=== PATIENT | female | born 1990 | race Caucasian/White ===

== ENCOUNTER 2018-11-07 17:16 | Emergency (ER) | payer SELFPAY ==
--- NOTE | 2018-11-07 18:26 | EDM.PDOC ---
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 Her LMP was on 09/23, light, and only lasted 2 days. She normally has irregular, heavy periods 2/2 PCOS. 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 She also has h/o ectopic , which she feels had similar symptoms as to what she is having now. The spotting lasted about 2 days, and looked like clotting and was BRB at times- she is currently not having spotting. She also c/o fever, abdominal pain, gas, L adenexal pain, bilateral CVA tenderness, swelling feet, easy bruising. She denies vaginal pain or discharge, dysuria, pain with intercourse. No other concerns at this time. PCP: none, as she just moved here from [place] for work; would like a recommendation. 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 ED EXAM - Physical Exam Exam: See Below Exam Limited By: No Limitations General Appearance: Alert, WD/WN, No Apparent Distress Eye Exam: Bilateral Eye: EOMI, Normal Inspection, PERRL Ears: Normal External Exam, Hearing Grossly Normal Nose: Normal Inspection, Normal Mucosa, No Blood Throat/Mouth: Normal Inspection, Normal Lips, Normal Teeth, Normal Gums, Normal Oropharynx, Normal Voice, No Airway Compromise Neck: Normal Inspection, Supple, Non-Tender, Full Range of Motion Respiratory/Chest: No Respiratory Distress, Lungs Clear, Normal Breath Sounds, No Accessory Muscle Use, Chest Non-Tender Cardiovascular: Normal Peripheral Pulses, Regular Rate, Rhythm, No Edema, No Gallop, No JVD, No Murmur, No Rub GI/Abdominal Exam: Normal Bowel Sounds, Soft, No Organomegaly, No Distention, No Abnormal Bruit, No Mass, Pelvis Stable, Tender (left adenexal region) Rectal Exam: Deferred Back Exam: CVA Tenderness (L) (R>L), CVA Tenderness (R) (R>L) Psychiatric: Normal Affect, Normal Mood Skin Exam: Warm, Dry, Intact, Normal Color, No Rash Course - Vital Signs Last Recorded V/S: Last Vital Signs Temp 98.2 F 11/07/18 17:26 Pulse 98 11/07/18 17:26 Resp 16 11/07/18 17:26 BP 161/87 H 11/07/18 17:26 Pulse Ox 96 11/07/18 17:26 - Orders/Labs/Meds Labs: Laboratory Tests 11/07/18 11/07/18 11/07/18 Range/Units 17:45 18:45 18:45 WBC 8.95 (3.98-10.04) K/mm3 RBC 4.56 (3.98-5.22) M/mm3 Hgb 13.9 (11.2-15.7) gm/L Hct 41.0 (34.1-44.9) % MCV 89.9 (79.4-94.8) fl MCH 30.5 (25.6-32.2) pg MCHC 33.9 (32.2-35.5) g/dl RDW Std Deviation 42.9 (36.4-46.3) fL Plt Count 292 (182-369) K/mm3 MPV 10.1 (9.4-12.3) fl Neut % (Auto) 64.3 (34.0-71.1) % Lymph % (Auto) 26.4 (19.3-51.7) % [place] % (Auto) 5.6 (4.7-12.5) % Eos % (Auto) 3.2 (0.7-5.8) Baso % (Auto) 0.2 (0.1-1.2) % Neut # (Auto) 5.75 (1.56-6.13) K/mm3 Lymph # (Auto) 2.36 (1.18-3.74) K/mm3 [place] # (Auto) 0.50 H (0.24-0.36) K/mm3 Eos # (Auto) 0.29 (0.04-0.36) K/mm3 Baso # (Auto) 0.02 (0.01-0.08) K/mm3 C-Reactive Protein 0.2 (<1.0) mg/dL HCG, Quant 2510.0 mIU/mL Urine Color Yellow (Yellow) Urine Appearance Clear (Clear) Urine pH 6.0 (5.0-8.0) Ur Specific [place] 1.025 (1.005-1.030) Urine Protein Negative (Negative) Urine Glucose (UA) Negative (Negative) Urine Ketones Negative (Negative) Urine Occult Blood Trace-lysed H (Negative) Urine Nitrite Negative (Negative) Urine Bilirubin Negative (Negative) Urine Urobilinogen 0.2 (0.2-1.0) Ur Leukocyte Esterase Negative (Negative) Urine RBC 0-5 (0-5) /hpf Urine WBC 0-5 (0-5) /hpf Ur Squamous Epith Cells 0-5 (0-5) /hpf Urine Bacteria Few H (FEW) /hpf Urine Mucus Few (FEW) /hpf - Re-Assessments/Exams Free Text/Narrative Re-Assessment/Exam: 11/07/18 18:19 I have ordered CBC, CRP, UA, HCG quantitative, Transvaginal U/S 11/07/18 19:19 CBC WNL CRP 0.2 UA unimpressive for UTI; shows occult blood and few bacteria 11/07/18 19:46 Transvaginal U/S read by Dr. Mccracken: 1. Small cystic area within the endometrial cavity most likely representing early gestational sac. Recommend repeat exam in 11-14 days to confirm normal developing . 2. Other findings as noted above believed to be incidental. 04/23/19 19:54 Discussed with pt and that there is no sign of infection on workup, according to U/S is about 5 weeks 3 days. Recommend repeat exam in 11- 14 days. Pain is likely from gas, will recommend over the counter Gas-X and f/u w/ PCP. They agree with this plan. Departure - Departure Time of Disposition: 20:03 Disposition: Home, Self-Care 01 Condition: Good Clinical Impression: with 5 completed weeks gestation, Back pain, Abdominal gas pain, Spotting affecting in first trimester - Discharge Information *PRESCRIPTION DRUG MONITORING PROGRAM REVIEWED*: Not Applicable *COPY OF PRESCRIPTION DRUG MONITORING REPORT IN PATIENT JIMI: Not Applicable Instructions: Flank Pain, Adult, [id number], Vaginal Bleeding During , First Trimester, [id number] Referrals: Huma Ngo PA [Physician Registered Private Duty Nurse] - Forms: ED Department Discharge Additional Instructions: You were seen in the ED today for back pain radiating down left leg and spotting with . You workup was negative for UTI or any other infection. Your U/S showed you are about 5 weeks 3 days . Recommend repeat exam in 11-14 days to confirm normal developing . Pelvic exam was not done as you are not currently bleeding or having any other concerning symptoms. Your back pain is likely from gas, recommend over the counter Gas-X and follow up with primary care provider, recommend Huma Ngo PA-C here at [facility]. She can then set you up with an OB in the area. Please return to ED if new or worsening symptoms.
--- NOTE | 2018-11-07 19:41 | US ---
First trimester obstetrical ultrasound: Multiple real-time images were obtained transvaginally. Technologist's note: Technically challenging due to body habitus and gas Incidental nabothian cyst is noted. Uterus is anteverted. Small cystic area is noted within the endometrial cavity. Minimal free fluid is seen which is believed to be incidental. Right and left ovaries are identified and appear unremarkable. No discrete adnexal findings are seen at this time. Measurements: Gestational sac: 0.79 cm - 5 weeks 3 days Impression: 1. Small cystic area within the endometrial cavity most likely representing early gestational sac. Recommend repeat exam in 11-14 days to confirm normal developing . 2. Other findings as noted above believed to be incidental. Diagnostic code #2
== END 2018-11-07 20:43 | disposition home or self-care (01) ==
LOC: JD.ED 17:16
DX: O26.851 Spotting complicating pregnancy, first trimester (principal); O99.89 Other specified diseases and conditions complicating pregnancy, childbirth and the puerperium; M54.9 Dorsalgia, unspecified; R14.1 Gas pain; Z3A.01 Less than 8 weeks gestation of pregnancy; Z79.899 Other long term (current) drug therapy; Z91.040 Latex allergy status; Z88.6 Allergy status to analgesic agent
CPT/HCPCS: 36415; 76817; 76817-26; 81001; 84702; 85025; 86140; 99282; 99284-25

== ENCOUNTER 2018-12-22 20:53 | Emergency (ER) | payer MEDICAID ==
[2018-12-22] MEDS ORDERED: diphenhydrAMINE 50 MG/ML SDV IVPUSH ONE (21:37)
[2018-12-22] MEDS ORDERED: Acetaminophen 325 MG Tab PO ONE (21:37)
[2018-12-22] MEDS ORDERED: Sodium Chloride 0.9% 10 ML Syringe FLUSH PRN (21:37)
[2018-12-22] MEDS ORDERED: Metoclopramide 10 MG/2 ML SDV IVPUSH ONE (21:37)
[2018-12-22] MEDS ORDERED: Sodium Chloride 0.9% 1,000 ML IV SCH (21:45)
--- NOTE | 2018-12-22 21:49 | EDM.PDOC ---
ED HPI GENERAL MEDICAL PROBLEM - General Chief Complaint: Headache Stated Complaint: 13 WKS PG MIGRAINE HEADACHE Time Seen by Provider: 12/22/18 21:36 Source of Information: Reports: Patient History Limitations: Reports: No Limitations, Uncooperative - History of Present Illness INITIAL COMMENTS - FREE TEXT/NARRATIVE: Patient is a 28-year-old female who presents to the ED for the evaluation of a headache. The patient notes that she is 13 weeks . She states that this headache started 2 days ago, and has not really gone away. She has been taking Tylenol at home but has been not providing much relief. She did try some caffeine today and this also did not provide much relief. The patient states she is a with 4 miscarriages and 1 ectopic . The patient notes she has been vomiting roughly 6 times today, she's not been able to keep much down for foods or fluids at all. She states that she is having some generalized myalgias and cramping, but she believes that this is due to the vomiting. She does not have any vaginal discharge or bleeding at this time. The patient notes that she has a history of headaches, and she states that migraines run in her family. 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 - Past Surgical History GI Surgical History: Reports: Cholecystectomy Social & Family History - Tobacco Use Smoking Status *Q: Never Smoker - Caffeine Use Caffeine Use: Reports: Coffee, Soda - Recreational Drug Use Recreational Drug Use: No ED ROS GENERAL - Review of Systems Review Of Systems: See Below Constitutional: Reports: No Symptoms HEENT: Reports: No Symptoms Respiratory: Reports: No Symptoms Cardiovascular: Reports: No Symptoms Endocrine: Reports: No Symptoms GI/Abdominal: Reports: Nausea, Vomiting : Reports: No Symptoms Musculoskeletal: Reports: No Symptoms Skin: Reports: No Symptoms Neurological: Reports: Headache Psychiatric: Reports: No Symptoms Hematologic/Lymphatic: Reports: No Symptoms Immunologic: Reports: No Symptoms - Physical Exam Exam: See Below Exam Limited By: No Limitations General Appearance: Alert, WD/WN, No Apparent Distress (Patient is lying flat on the ED cot in a darkened room.) Eye Exam: Bilateral Eye: EOMI, Normal Inspection, PERRL Ears: Normal External Exam Nose: Normal Inspection Throat/Mouth: Normal Inspection, Normal Lips, Normal Teeth, Normal Gums, Normal Oropharynx, Normal Voice, No Airway Compromise Head Exam: Atraumatic, Normocephalic Neck: Normal Inspection, Supple, Non-Tender, Full Range of Motion Respiratory/Chest: No Respiratory Distress, Lungs Clear, Normal Breath Sounds, No Accessory Muscle Use, Chest Non-Tender Cardiovascular: Normal Peripheral Pulses, Regular Rate, Rhythm, No Murmur GI/Abdominal: Normal Bowel Sounds, Soft, Non-Tender, No Distention, No Mass Neuro Exam (Abbreviated): Alert, Oriented, Normal Cognition, Normal Gait, No Motor/Sensory Deficits Extremities: Normal Inspection, Normal Capillary Refill Psychiatric: Normal Affect, Normal Mood Skin Exam: Warm, Dry, Intact, Normal Color, No Rash Course - Vital Signs Last Recorded V/S: Last Vital Signs Temp 98.4 F 12/22/18 21:26 Pulse 79 12/22/18 21:26 Resp 20 12/22/18 21:26 BP 123/75 12/22/18 21:26 Pulse Ox 99 12/22/18 21:26 - Orders/Labs/Meds Orders: Active Orders 24 hr Category Date Time Status Peripheral IV Care [RC] . DIRECTED Care 12/22/18 21:37 Ordered Sodium Chloride 0.9% [Normal Saline] 1,000 ml Med 12/22/18 21:45 Ordered IV ASDIRECTED Sodium Chloride 0.9% [Saline Flush] Med 12/22/18 21:37 Ordered 10 ml FLUSH ASDIRECTED PRN Peripheral IV Insertion Adult [OM.PC] Routine Oth 12/22/18 21:37 Ordered Medication Orders Sodium Chloride (Normal Saline) 1,000 mls @ 999 mls/hr IV ASDIRECTED STEFANO Last Admin: 12/22/18 22:02 Dose: 999 mls/hr Sodium Chloride (Saline Flush) 10 ml FLUSH ASDIRECTED PRN PRN Reason: Keep Vein Open Last Admin: 12/22/18 22:03 Dose: 10 ml Meds: Medications Generic Name Dose Route Start Last Admin Trade Name Amilcar PRN Reason Stop Dose Admin Sodium Chloride 1,000 mls @ 999 mls/hr 12/22/18 21:45 12/22/18 22:02 Normal Saline IV 999 mls/hr ASDIRECTED STEFANO Administration Sodium Chloride 10 ml 12/22/18 21:37 12/22/18 22:03 Saline Flush FLUSH 10 ml ASDIRECTED PRN Administration Keep Vein Open Discontinued Medications Generic Name Dose Route Start Last Admin Trade Name Amilcar PRN Reason Stop Dose Admin Acetaminophen 650 mg 12/22/18 21:37 12/22/18 22:02 Tylenol PO 12/22/18 21:38 650 mg NOW ONE Administration Diphenhydramine HCl 25 mg 12/22/18 21:37 12/22/18 22:04 Benadryl IVPUSH 12/22/18 21:38 25 mg ONETIME ONE Administration Metoclopramide HCl 10 mg 12/22/18 21:37 12/22/18 22:02 Reglan IVPUSH 12/22/18 21:38 10 mg ONETIME ONE Administration - Re-Assessments/Exams Free Text/Narrative Re-Assessment/Exam: 12/22/18 21:49 Patient presents to the ED for the evaluation of a headache. I have ordered 650 mg PO Tylenol, IV fluids, 10 mg IV Reglan, and 25 mg IV Benadryl for initial management. 12/22/18 22:45 Patient was reassessed at bedside, and states that her headache has decreased by 50%. She states that she does not feel any of the cramping any longer, I will let her IV fluids run in, and then we will discharge the patient home with some tablets of oral Zofran with further conservative recommendations. Departure - Departure Time of Disposition: 22:46 Disposition: Home, Self-Care 01 Condition: Fair Clinical Impression: Headache Qualifiers: Headache type: unspecified Headache chronicity pattern: acute headache Intractability: not intractable Qualified Code(s): R51 - Headache - Discharge Information *PRESCRIPTION DRUG MONITORING PROGRAM REVIEWED*: No *COPY OF PRESCRIPTION DRUG MONITORING REPORT IN PATIENT JIMI: No Instructions: General Headache Without Cause, [id number] Referrals: Param Anaya MD [Primary Care Provider] - Forms: ED Department Discharge Additional Instructions: You have been evaluated in the ED today for your headache. You have been given IV fluids, Tylenol, Benadryl, and an antinausea medication called Reglan, this did provide a pretty good headache relief. You have been provided with a prescription for some oral tablets of Zofran, please take one tab every 8 hours dissolvable under your tongue for nausea. Please increase your oral fluid intake as much as possible, and stick to a clear liquid or bland diet over the next 24-48 hours and advanced to normal foods as tolerated. Please return to the ED if her symptoms should change or worsen. - My Orders Last 24 Hours: My Active Orders 12/22/18 21:37 Peripheral IV Care [RC] . DIRECTED Sodium Chloride 0.9% [Saline Flush] 10 ml FLUSH ASDIRECTED PRN Peripheral IV Insertion Adult [OM.PC] Routine 12/22/18 21:45 Sodium Chloride 0.9% [Normal Saline] 1,000 ml IV ASDIRECTED - Assessment/Plan Last 24 Hours: My Active Orders 12/22/18 21:37 Peripheral IV Care [RC] . DIRECTED Sodium Chloride 0.9% [Saline Flush] 10 ml FLUSH ASDIRECTED PRN Peripheral IV Insertion Adult [OM.PC] Routine 12/22/18 21:45 Sodium Chloride 0.9% [Normal Saline] 1,000 ml IV ASDIRECTED
== END 2018-12-22 22:55 | disposition home or self-care (01) ==
LOC: JD.ED 20:53
DX: O99.89 Other specified diseases and conditions complicating pregnancy, childbirth and the puerperium (principal); R51 Headache; Z3A.13 13 weeks gestation of pregnancy; Z91.040 Latex allergy status; Z88.6 Allergy status to analgesic agent; Z79.899 Other long term (current) drug therapy
CPT/HCPCS: 96361; 96374; 96375; 99283; A9270; J1200; J2765; J7040; 99284

== ENCOUNTER 2019-01-06 17:51 | Emergency (ER) | payer MEDICAID ==
--- NOTE | 2019-01-06 19:22 | EDM.PDOC ---
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 The patient states she is 15 weeks . The patient states that she developed severe right lower quadrant pain this morning but denies any nausea or vomiting or any fevers and chills. She states that she did have a good bowel movement today after taking milk of magnesia and reports of quite large bowel movement. She states that the pain is sharp and stabbing in nature, and kind of comes and goes in waves. She notes that she still has her appendix, and a right-sided ovary and fallopian tube. She states that at 15 weeks she has not felt the baby move a whole awful lot. The patient further denies any vaginal bleeding or dysuria or urinary frequency or urgency. The patient notes she has taken 1500 mg of Tylenol and this has not provided her any pain relief. 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 Neurological History: Reports: Migraines Psychiatric History: Reports: Anxiety, Depression - Past Surgical History GI Surgical History: Reports: Cholecystectomy Female Surgical History: Reports: D&C Social & Family History - Family History Family Medical History: Noncontributory - Tobacco Use Smoking Status *Q: Never Smoker - Caffeine Use Caffeine Use: Reports: Coffee, Soda ED ROS GENERAL - Review of Systems Review Of Systems: See Below Constitutional: Denies: Fever, Chills HEENT: Reports: No Symptoms Respiratory: Reports: No Symptoms Cardiovascular: Reports: No Symptoms Endocrine: Reports: No Symptoms GI/Abdominal: Reports: Abdominal Pain (R lower pelvic pain). Denies: Constipation, Diarrhea, Nausea, Vomiting : Reports: No Symptoms Musculoskeletal: Reports: No Symptoms Skin: Reports: No Symptoms Neurological: Reports: No Symptoms Psychiatric: Reports: No Symptoms Hematologic/Lymphatic: Reports: No Symptoms Immunologic: Reports: No Symptoms ED EXAM - Physical Exam Exam: See Below Exam Limited By: No Limitations General Appearance: Alert, WD/WN, No Apparent Distress Respiratory/Chest: No Respiratory Distress, Lungs Clear, Normal Breath Sounds, No Accessory Muscle Use, Chest Non-Tender Cardiovascular: Normal Peripheral Pulses, Regular Rate, Rhythm, No Murmur GI/Abdominal Exam: Normal Bowel Sounds, Soft, No Distention, No Mass, Tender ( RLQ) Movement: Not Appreciated Extremities: Normal Inspection, Normal Capillary Refill Neurological: Alert, Oriented, Normal Cognition, No Motor/Sensory Deficits Psychiatric: Normal Affect, Normal Mood Skin Exam: Warm, Dry, Intact, Normal Color, No Rash Course - Vital Signs Last Recorded V/S: Last Vital Signs Temp 99.2 F 01/06/19 18:01 Pulse 88 01/06/19 18:01 Resp 16 01/06/19 18:01 BP 129/76 01/06/19 18:01 Pulse Ox 100 01/06/19 18:01 - Orders/Labs/Meds Orders: Active Orders 24 hr Category Date Time Status Abdomen Ltd [US] Stat Exams 01/06/19 18:54 Taken Labs: Laboratory Tests 01/06/19 01/06/19 01/06/19 Range/Units 18:05 18:05 20:10 WBC 9.59 (3.98-10.04) K/mm3 RBC 4.51 (3.98-5.22) M/mm3 Hgb 13.7 (11.2-15.7) gm/L Hct 39.5 (34.1-44.9) % MCV 87.6 (79.4-94.8) fl MCH 30.4 (25.6-32.2) pg MCHC 34.7 (32.2-35.5) g/dl RDW Std Deviation 39.5 (36.4-46.3) fL Plt Count 258 (182-369) K/mm3 MPV 11.3 (9.4-12.3) fl Neutrophils % (Manual) 62 H (40-60) % Band Neutrophils % 0 (0-10) % Lymphocytes % (Manual) 28 (20-40) % Atypical Lymphs % 0 % Monocytes % (Manual) 8 (2-10) % Eosinophils % (Manual) 2 (0.7-5.8) % Basophils % (Manual) 0 L (0.1-1.2) Platelet Estimate Adequate RBC Morph Comment Normal Sodium 138 (136-145) mEq/L Potassium 3.9 (3.5-5.1) mEq/L Chloride 105 (98-107) mEq/L Carbon Dioxide 21 (21-32) mEq/L Anion Gap 15.9 H (5-15) BUN 6 L (7-18) mg/dL Creatinine 0.6 (0.55-1.02) mg/dL Est Cr Clr Drug Dosing 133.32 mL/min Estimated GFR (MDRD) > 60 (>60) mL/min BUN/Creatinine Ratio 10.0 L (14-18) Glucose 115 H (74-106) mg/dL Calcium 8.5 (8.5-10.1) mg/dL Total Bilirubin 0.3 (0.2-1.0) mg/dL AST 9 L (15-37) U/L ALT 16 (14-59) U/L Alkaline Phosphatase 56 (46-116) U/L Total Protein 6.9 (6.4-8.2) g/dl Albumin 3.0 L (3.4-5.0) g/dl Globulin 3.9 gm/dL Albumin/Globulin Ratio 0.8 L (1-2) Urine Color Yellow (Yellow) Urine Appearance Slt cloudy H (Clear) Urine pH 8.5 H (5.0-8.0) Ur Specific [place] 1.020 (1.005-1.030) Urine Protein Trace H (Negative) Urine Glucose (UA) Negative (Negative) Urine Ketones Negative (Negative) Urine Occult Blood Negative (Negative) Urine Nitrite Negative (Negative) Urine Bilirubin Negative (Negative) Urine Urobilinogen 0.2 (0.2-1.0) Ur Leukocyte Esterase Negative (Negative) Urine RBC 0-5 (0-5) /hpf Urine WBC Not seen (0-5) /hpf Ur Epithelial Cells 0-5 (0-5) /hpf Amorphous Sediment Many H (NOT SEEN) /hpf Urine Bacteria Few (FEW) /hpf Urine Mucus Moderate H (FEW) /hpf Meds: Medications Discontinued Medications Generic Name Dose Route Start Last Admin Trade Name Amilcar PRN Reason Stop Dose Admin Hydromorphone HCl 0.25 mg 01/06/19 19:28 01/06/19 19:46 Dilaudid IVPUSH 01/06/19 19:29 0.25 mg ONETIME ONE Administration Ondansetron HCl 4 mg 01/06/19 19:30 01/06/19 19:46 Zofran IVPUSH 01/06/19 19:31 4 mg ONETIME ONE Administration - Re-Assessments/Exams Free Text/Narrative Re-Assessment/Exam: 01/06/19 19:27 Patient presents to the ED for the evaluation of right lower pelvic pain. I have ordered a CBC, CMP, abdominal ultrasound, and a UA for further evaluation. 01/06/19 23:09 Patient's labs do not demonstrate any sort of bacterial infection at this this. US is done and results are pending. It is likely that her pain is due to either constipation or gas. 01/06/19 23:39 V-rad states that there are no acute findings, but the appendix was not visualized. There were no inflammatory changes or obvious free fluid. I did discuss the results with Dr. Sims, and he agrees that her pain is likely due to constipation. Departure - Departure Time of Disposition: 23:41 Disposition: Home, Self-Care 01 Condition: Fair Clinical Impression: RLQ abdominal pain Constipation Qualifiers: Constipation type: unspecified constipation type Qualified Code(s): K59.00 - Constipation, unspecified - Discharge Information *PRESCRIPTION DRUG MONITORING PROGRAM REVIEWED*: No *COPY OF PRESCRIPTION DRUG MONITORING REPORT IN PATIENT JIMI: No Instructions: Abdominal Pain During , [id number] Referrals: Param Anaya MD [Primary Care Provider] - Forms: ED Department Discharge Additional Instructions: You have been evaluated in the ED today for your abdominal pain with . You were evaluated for appendicitis as your pain was in your right lower quadrant. Your white blood cell count was within normal limits, and your ultrasound did not show any sign of inflammatory changes that would suggest appendicitis. It is likely that your pain is due to either constipation or gas at this time. Please increase your oral fluid intake to help guard against further constipation, you may also take a stool softener like MiraLAX daily if not already doing so. You may take Tylenol every 6 hours as needed for further pain relief. Please return to the ED if your symptoms should change or worsen. - My Orders Last 24 Hours: My Active Orders 01/06/19 18:54 Abdomen Ltd [US] Stat - Assessment/Plan Last 24 Hours: My Active Orders 01/06/19 18:54 Abdomen Ltd [US] Stat
[2019-01-06] MEDS ORDERED: HYDROmorphone 0.5 MG/0.5 ML Syringe IVPUSH ONE (19:28)
[2019-01-06] MEDS ORDERED: Ondansetron 4 MG/2 ML SDV IVPUSH ONE (19:30)
--- NOTE | 2019-01-08 09:36 | US ---
Limited abdominal ultrasound: Multiple real-time images of the right lower abdomen were obtained. Appendix not visualized. Right ovary appears normal. No free fluid is seen. Impression: 1. No ultrasound abnormality is seen within the right lower quadrant. Diagnostic code #1 I agree with preliminary report from jenny, finalized on 01/07/19, 12:30 AM Central Time
== END 2019-01-06 23:49 | disposition home or self-care (01) ==
LOC: JD.ED 17:51
DX: O99.612 Diseases of the digestive system complicating pregnancy, second trimester (principal); K59.00 Constipation, unspecified; Z90.49 Acquired absence of other specified parts of digestive tract; Z88.5 Allergy status to narcotic agent; Z91.040 Latex allergy status; Z3A.15 15 weeks gestation of pregnancy
CPT/HCPCS: 36415; 76705; 80053; 81001; 85007; 85027; 96374; 96375; 99284; J1170; J2405

== ENCOUNTER 2019-08-09 09:29 | Emergency (ER) | payer MEDICAID ==
--- NOTE | 2019-08-09 10:16 | EDM.PDOC ---
<Violeta Kasper - Last Filed: 08/09/19 10:50> ED HPI GENERAL MEDICAL PROBLEM - General Chief Complaint: Headache Stated Complaint: HEADACHE/BLURRED VISION/JOINT PAIN Time Seen by Provider: 08/09/19 10:02 Source of Information: Reports: Patient History Limitations: Reports: No Limitations - History of Present Illness INITIAL COMMENTS - FREE TEXT/NARRATIVE: 28-year-old female presents with a headache, blurry vision, and diffuse joint pain/burning. She states that the headache started this morning but the joint pain has been occurring off and on for approximately one month. She is having the joint pain worked up by Dr. Rangel, who she states has tested her for lupus and connective tissue disease with results coming back negative. Her wrists and shoulders bother her the worst. The headache she describes as throbbing starting in the frontal region and radiating superior and posterior. She has tried tylenol and ibuprofen for the headache with no relief. She has had a migraine in the past and she recently had a TIA after the of her child in May. 4 days ago, an MRI was done which she states showed little to no evidence of her pituitary gland. She does have a follow up visit to address those results. The patient describes the blurry vision as being "spotted" but denies loss of vision. She also notes that light seems to worsen her headache and vision. The patient denies chest pain, shortness of breath, loss of sensation, and hearing loss. She is able to walk but notes her joint pain makes it very difficult. Onset: Today Duration: Constant Location: Reports: Head, Other (joints) Quality: Reports: Throbbing (frontal region radiating superior and posteriorly) , Other (all joints "feel like they are on fire") Severity: Severe Improves with: Reports: None Worsens with: Reports: Other (light, eye movement) Associated Symptoms: Reports: Headaches, Other (joint pain ) Treatments MANAGER PERIOPERATIVE: Reports: Acetaminophen, Other (see below) Other Treatments MANAGER PERIOPERATIVE: ibuprofen Frontal Headache Pain Score (Numeric/FACES): 10 - Related Data Allergies Allergy/AdvReac Type Severity Reaction Status Date / Time Latex, Natural Rubber Allergy Hives Verified 08/09/19 09:48 tramadol AdvReac Nausea Verified 08/09/19 09:48 Home Meds: Home Meds Pnv No.95/Ferrous Fum/Folic AC [ Caplet] 1 tab PO DAILY 11/07/18 [ History] Sertraline HCl [Zoloft] 75 mg PO DAILY 05/24/19 [History] Jublia. 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 Denies: Ear Pain, Eye Pain, Hearing Loss Respiratory: Reports: No Symptoms Cardiovascular: Reports: No Symptoms Endocrine: Reports: No Symptoms GI/Abdominal: Reports: Nausea. Denies: Abdominal Pain, Constipation, Diarrhea : Reports: No Symptoms Musculoskeletal: Reports: Joint Pain (diffuse, burning, worse in wrists and shoulders) Skin: Reports: No Symptoms Neurological: Reports: Headache (frontal, radiates superior and posterior), Difficulty Walking (due to joint pain ), Other (photophobia ). Denies: Dizziness, Numbness, Tingling Psychiatric: Reports: No Symptoms Hematologic/Lymphatic: Reports: No Symptoms - Physical Exam Exam: See Below Exam Limited By: No Limitations General Appearance: Alert, WD/WN, Moderate Distress Eye Exam: Bilateral Eye: EOMI, Other (unable to accurately perform pupillary reflex due to light sensitivity, peripheral vision intact, able to decipher number of fingers held up) Head Exam: Atraumatic, Normocephalic Respiratory/Chest: No Respiratory Distress, Lungs Clear, Normal Breath Sounds, No Accessory Muscle Use Cardiovascular: Normal Peripheral Pulses, Regular Rate, Rhythm, No Murmur Neuro Exam (Abbreviated): Alert, Oriented, CN II-XII Intact, Normal Cognition, No Motor/Sensory Deficits Extremities: Normal Inspection, Normal Range of Motion, Other (diffuse joint tenderness, full ROM of fingers but they do lock and release as she extends them ) Psychiatric: Normal Affect, Normal Mood Skin Exam: Warm, Dry, Intact, Normal Color, No Rash Course - Vital Signs Last Recorded V/S: Last Vital Signs Temp 98.9 F 08/09/19 09:46 Pulse 66 08/09/19 09:46 Resp 16 08/09/19 09:46 BP 129/73 08/09/19 09:46 Pulse Ox 98 08/09/19 09:46 - Orders/Labs/Meds Orders: Active Orders 24 hr Category Date Time Status Peripheral IV Care [RC] . DIRECTED Care 08/09/19 10:27 Active Ketorolac [Toradol] Med 08/09/19 10:30 Active 30 mg IVPUSH ONETIME Sodium Chloride 0.9% [Normal Saline] 1,000 ml Med 08/09/19 10:30 Active IV ONETIME Sodium Chloride 0.9% [Saline Flush] Med 08/09/19 10:24 Active 10 ml FLUSH ASDIRECTED PRN Peripheral IV Insertion Adult [OM.PC] Stat Oth 08/09/19 10:24 Ordered Medication Orders Sodium Chloride (Normal Saline) 1,000 mls @ 999 mls/hr IV ONETIME STEFANO Last Admin: 08/09/19 10:55 Dose: 999 mls/hr Ketorolac Tromethamine (Toradol) 30 mg IVPUSH ONETIME STEFANO Last Admin: 08/09/19 10:58 Dose: 30 mg Sodium Chloride (Saline Flush) 10 ml FLUSH ASDIRECTED PRN PRN Reason: Keep Vein Open Last Admin: 08/09/19 10:59 Dose: 10 ml Meds: Medications Generic Name Dose Route Start Last Admin Trade Name Freq PRN Reason Stop Dose Admin Sodium Chloride 1,000 mls @ 999 mls/hr 08/09/19 10:30 08/09/19 10:55 Normal Saline IV 999 mls/hr ONETIME STEFANO Administration Ketorolac Tromethamine 30 mg 08/09/19 10:30 08/09/19 10:58 Toradol IVPUSH 30 mg ONETIME STEFANO Administration Sodium Chloride 10 ml 08/09/19 10:24 08/09/19 10:59 Saline Flush FLUSH 10 ml ASDIRECTED PRN Administration Keep Vein Open Discontinued Medications Generic Name Dose Route Start Last Admin Trade Name Amilcar PRN Reason Stop Dose Admin Diphenhydramine HCl 25 mg 08/09/19 10:24 08/09/19 10:59 Benadryl IVPUSH 08/09/19 10:25 25 mg ONETIME ONE Administration Metoclopramide HCl 10 mg 08/09/19 10:24 08/09/19 10:59 Reglan IVPUSH 08/09/19 10:25 10 mg ONETIME ONE Administration Departure - Departure Disposition: Home, Self-Care 01 Clinical Impression: Migraine - Discharge Information Instructions: Migraine Headache Referrals: Rick Malcolm MD [Primary Care Provider] - Forms: ED Department Discharge Additional Instructions: Rest, continue current medications, tylenol every 6-8 hours if needed for further headache, see Dr. Rangel early next week, see Osd Clerk as planned. Return to ED as needed if symptoms worsening in any way. Sepsis Event Note - Evaluation Sepsis Screening Result: No Definite Risk - Focused Exam Vital Signs: Vital Signs Temp Pulse Resp BP Pulse Ox 08/09/19 09:46 98.9 F 66 16 129/73 98 Date Exam was Performed: 08/09/19 Time Exam was Performed: 10:51 - My Orders Last 24 Hours: My Active Orders 08/09/19 10:24 Sodium Chloride 0.9% [Saline Flush] 10 ml FLUSH ASDIRECTED PRN Peripheral IV Insertion Adult [OM.PC] Stat 08/09/19 10:27 Peripheral IV Care [RC] . DIRECTED 08/09/19 10:30 Ketorolac [Toradol] 30 mg IVPUSH ONETIME Sodium Chloride 0.9% [Normal Saline] 1,000 ml IV ONETIME - Assessment/Plan Last 24 Hours: My Active Orders 08/09/19 10:24 Sodium Chloride 0.9% [Saline Flush] 10 ml FLUSH ASDIRECTED PRN Peripheral IV Insertion Adult [OM.PC] Stat 08/09/19 10:27 Peripheral IV Care [RC] . DIRECTED 08/09/19 10:30 Ketorolac [Toradol] 30 mg IVPUSH ONETIME Sodium Chloride 0.9% [Normal Saline] 1,000 ml IV ONETIME <Toby Agarwal L - Last Filed: 08/09/19 13:43> Course - Re-Assessments/Exams Free Text/Narrative Re-Assessment/Exam: 08/09/19 11:45. When in the check on patient a few minutes ago, she is sleeping. We'll let her sleep for now and then plan to discharge home if still doing okay. 08/09/19 13:00. Pt still has very mild Marroquin but feeling better after IV fluid and meds. feels up to going home. As noted she did have MRI just 4 days ago so am not repeating imaging of head today with nl neuro exam. I have reviewed the MRI report, empty sella noted, no other abnormality visualized. See that Radiology report for details. Discharge instr. as documented. 08/09/19 13:42. Initial hx and exam of patient was done by JOSE Key student. I agree with her hx and exam as documented. I have also examined and interviewed patient as well as follow up exams. Departure - Departure Time of Disposition: 13:01 Condition: Fair Sepsis Event Note - Focused Exam Date Exam was Performed: 08/09/19 Time Exam was Performed: 13:40
[2019-08-09] MEDS ORDERED: Sodium Chloride 0.9% 10 ML Syringe FLUSH PRN (10:24)
[2019-08-09] MEDS ORDERED: diphenhydrAMINE 50 MG/ML SDV IVPUSH ONE (10:24)
[2019-08-09] MEDS ORDERED: Metoclopramide 10 MG/2 ML SDV IVPUSH ONE (10:24)
[2019-08-09] MEDS ORDERED: Ketorolac 30 MG/ML SDV IVPUSH SCH (10:30)
[2019-08-09] MEDS ORDERED: Sodium Chloride 0.9% 1,000 ML IV SCH (10:30)
== END 2019-08-09 15:20 | disposition home or self-care (01) ==
LOC: JD.ED 09:29
DX: G43.909 Migraine, unspecified, not intractable, without status migrainosus (principal); F41.9 Anxiety disorder, unspecified; F32.9 Major depressive disorder, single episode, unspecified; Z88.5 Allergy status to narcotic agent; Z91.040 Latex allergy status; Z79.84 Long term (current) use of oral hypoglycemic drugs; Z79.899 Other long term (current) drug therapy; Z90.49 Acquired absence of other specified parts of digestive tract
CPT/HCPCS: 96361; 96374; 96375; 99283; J1200; J1885; J2765; J7030

== ENCOUNTER 2019-09-16 19:08 | Observation (INO) | payer MEDICAID ==
[2019-09-16] MEDS ORDERED: Ondansetron 4 MG/2 ML SDV IVPUSH ONE ×2 (20:13→21:34)
[2019-09-16] MEDS ORDERED: HYDROmorphone 1 MG/ML Syringe IVPUSH STA (20:13)
[2019-09-16] MEDS ORDERED: Sodium Chloride 0.9% 1,000 ML IV SCH (20:15)
--- NOTE | 2019-09-16 20:20 | EDM.PDOC ---
ED HPI GENERAL MEDICAL PROBLEM - General Chief Complaint: Respiratory Problem Stated Complaint: FEVER Time Seen by Provider: 09/16/19 19:40 Source of Information: Reports: Patient, Significant Other (Boyfriend) History Limitations: Reports: No Limitations - History of Present Illness INITIAL COMMENTS - FREE TEXT/NARRATIVE: Ms. Vazquez is a very pleasant 28-year-old woman with a past medical history significant for depression and anxiety, who states that she developed fever, a cough, soreness when she breathes, rhinorrhea, and generalized body aches this past 09/14/2019. Her Tmax is 102.7 degrees. Her cough is productive of dark green sputum with some flecks of blood. She then developed a sore throat and left ear pain on 09/15/2019, along with right lower quadrant abdominal pain and watery diarrhea. Her abdominal pain is dull in character, but if she pushes on her right lower quadrant, it becomes sharp. It is made worse with coughing. She then developed nausea and vomiting today, and near syncope when she stood up, today. No recent chest pain or palpitations. No recent urinary symptoms. No recent vaginal itching or discharge. The patient has taken nyby-jro-xswaepb cough and cold medicines, which have not helped at all. The patient's LMP was about 1 month ago. Here in the ED, the patient is found to be mildly tachycardic and tachypneic, with a fever of 101.3 degrees, saturating 100% on room air. She last ate around 15:20. The patient's PCP is Dr. Rick Rangel. Her Job Press Feeder is Dr. Param Anaya. Her Photo Stylist is Dr. Michael Burgess. She received an influenza vaccine in April 2019. Treatments FINISH SANDER: Reports: Other (see below) Other Treatments FINISH SANDER: tylenol and motrin but did vomit around 1700 Generalized Pain Score (Numeric/FACES): 8 - Related Data Allergies Allergy/AdvReac Type Severity Reaction Status Date / Time Latex, Natural Rubber Allergy Hives Verified 09/17/19 02:36 tramadol AdvReac Nausea Verified 09/17/19 02:36 Home Meds: Home Meds Pnv No.95/Ferrous Fum/Folic AC [ Caplet] 1 tab PO DAILY 11/07/18 [ History] Jublia. 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 (x 1), Spontaneous (x 4) : 6 Para: 2 Neurological History: Reports: Migraines (No), TIA (No) Psychiatric History: Reports: Anxiety, Depression - Past Surgical History GI Surgical History: Reports: Cholecystectomy (2013), Colonoscopy (x 1) Female Surgical History: Reports: Section (x 1) Social & Family History - Family History Family Medical History: Noncontributory - Tobacco Use Smoking Status *Q: Current Every Day Smoker Tobacco Use Within Last Twelve Months: Vaping (flavor, not nicotine) Years of Tobacco use: 5 Packs/Tins Daily: 0.1 Month/Year Tobacco Last Used: Quit 2016 - Caffeine Use Caffeine Use: Reports: Coffee, Soda, Tea - Alcohol Use Alcohol Use History: Yes Alcohol Use Frequency: Socially - Recreational Drug Use Recreational Drug Use: No - Living Situation & Occupation Living situation: Reports: , with Family (Daughter) 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 ED EXAM, GENERAL - Physical Exam Exam: See Below Exam Limited By: No Limitations General Appearance: Alert, WD/WN, Anxious Eye Exam: Bilateral Eye: EOMI, Normal Inspection Ears: Normal External Exam, Normal Canal, Hearing Grossly Normal, Normal TMs ( including the left) Nose: Normal Inspection, No Blood, Other (Bilateral nasal mucosal edema, but no rhinorrhea) Throat/Mouth: Normal Inspection, Normal Lips, Normal Teeth, Normal Gums, Normal Oropharynx (No oropharyngeal swelling or erythema. Uvula not swollen. Tonsils normal parents, without exudates.), Normal Voice, No Airway Compromise Head: Atraumatic, Normocephalic Neck: Normal Inspection, Supple, Non-Tender, Full Range of Motion. No: Lymphadenopathy (L), Lymphadenopathy (R) Respiratory/Chest: No Respiratory Distress, Lungs Clear, Normal Breath Sounds, No Accessory Muscle Use. No: Decreased Breath Sounds, Crackles, Rhonchi, Wheezing, Stridor, Prolonged Expiration Cardiovascular: Normal Peripheral Pulses, Regular Rate, Rhythm, No Edema, No Gallop, No JVD, No Murmur, No Rub Peripheral Pulses: 4+: Radial (L), Radial (R) GI/Abdominal: Normal Bowel Sounds, Soft, No Organomegaly, No Distention, No Abnormal Bruit, No Mass, Tender (Right lower quadrant, with Rovsing sign present.), Other (Obturator sign absent. Psoas sign absent. Heel drop sign present.) (Female) Exam: Deferred Rectal (Female) Exam: Deferred Back Exam: Normal Inspection, Full Range of Motion, CVA Tenderness (L), CVA Tenderness (R) Extremities: Normal Inspection, Normal Range of Motion, No Pedal Edema, Normal Capillary Refill Neurological: Alert, Oriented, Normal Cognition, No Motor/Sensory Deficits Psychiatric: Anxious Skin Exam: Warm, Dry, Intact, Normal Color, No Rash Course - Vital Signs Last Recorded V/S: Last Vital Signs Temp 36.8 C 09/17/19 02:31 Pulse 91 09/17/19 02:31 Resp 20 09/17/19 02:31 BP 117/67 09/17/19 02:31 Pulse Ox 95 09/17/19 02:31 Orthostatic Blood Pressure [ 98/80 Standing] Orthostatic Blood Pressure [ 112/76 Sitting] Orthostatic Blood Pressure [ 108/69 Supine] - Orders/Labs/Meds Orders: Active Orders 24 hr Category Date Time Status Admission Status [Patient Status] [ADT] Routine ADT 09/17/19 01:35 Active Abdomen Pelvis w Cont [CT] Stat Exams 09/16/19 20:13 Taken Chest 2V [CR] Stat Exams 09/16/19 20:16 Taken CULTURE STREP A CONFIRMATION [RM] Stat Lab 09/16/19 20:10 Results STREP SCRN A RAPID W CULT CONF [RM] Stat Lab 09/16/19 20:10 Results Sodium Chloride 0.9% [Saline Flush] Med 09/16/19 21:46 Active 10 ml FLUSH ONETIME PRN Medication Orders Lactated Ringer's (Ringers, Lactated) 1,000 mls @ 250 mls/hr IV ASDIRECTED STEFANO Last Admin: 09/17/19 03:18 Dose: 250 mls/hr Infusion: 09/17/19 03:18 Dose: 250 mls/hr Admin: 09/17/19 03:15 Dose: 250 mls/hr Sodium Chloride (Saline Flush) 10 ml FLUSH ONETIME PRN PRN Reason: KEEP VEIN OPEN Last Admin: 09/16/19 21:47 Dose: 10 ml Labs: Laboratory Tests 09/16/19 09/16/19 09/16/19 Range/Units 20:25 20:25 20:25 WBC 8.91 (3.98-10.04) K/mm3 RBC 4.94 (3.98-5.22) M/mm3 Hgb 14.7 (11.2-15.7) gm/dl Hct 44.6 (34.1-44.9) % MCV 90.3 (79.4-94.8) fl MCH 29.8 (25.6-32.2) pg MCHC 33.0 (32.2-35.5) g/dl RDW Std Deviation 45.6 (36.4-46.3) fL Plt Count 282 (182-369) K/mm3 MPV 10.2 (9.4-12.3) fl Neutrophils % (Manual) 72 H (40-60) % Band Neutrophils % 0 (0-10) % Lymphocytes % (Manual) 23 (20-40) % Atypical Lymphs % 0 % Monocytes % (Manual) 5 (2-10) % Eosinophils % (Manual) 0 L (0.7-5.8) % Basophils % (Manual) 0 L (0.1-1.2) Platelet Estimate Adequate Plt Morphology Comment Normal RBC Morph Comment Normal Sodium 138 (136-145) mEq/L Potassium 3.4 L (3.5-5.1) mEq/L Chloride 101 (98-107) mEq/L Carbon Dioxide 26 (21-32) mEq/L Anion Gap 14.4 (5-15) BUN 8 (7-18) mg/dL Creatinine 1.0 (0.55-1.02) mg/dL Est Cr Clr Drug Dosing 82.98 mL/min Estimated GFR (MDRD) > 60 (>60) mL/min BUN/Creatinine Ratio 8.0 L (14-18) Glucose 112 H (74-106) mg/dL Calcium 8.7 (8.5-10.1) mg/dL Total Bilirubin 0.2 (0.2-1.0) mg/dL AST 16 (15-37) U/L ALT 28 (14-59) U/L Alkaline Phosphatase 56 (46-116) U/L Total Protein 8.0 (6.4-8.2) g/dl Albumin 3.3 L (3.4-5.0) g/dl Globulin 4.7 gm/dL Albumin/Globulin Ratio 0.7 L (1-2) HCG, Quant < 1.0 mIU/mL Meds: Medications Generic Name Dose Route Start Last Admin Trade Name Freq PRN Reason Stop Dose Admin Lactated Ringer's 1,000 mls @ 250 mls/hr 09/17/19 03:00 09/17/19 03:18 Ringers, Lactated IV 250 mls/hr ASDIRECTED STEFANO Administration Sodium Chloride 10 ml 09/16/19 21:46 09/16/19 21:47 Saline Flush FLUSH 10 ml ONETIME PRN Administration KEEP VEIN OPEN Discontinued Medications Generic Name Dose Route Start Last Admin Trade Name Freq PRN Reason Stop Dose Admin Diatrizoate Meglum/Diatrizoate Sod 60 ml 09/16/19 21:30 09/16/19 21:46 Gastrografin 37% PO 09/16/19 21:31 60 ml ONETIME ONE Administration Hydromorphone HCl 1 mg 09/16/19 20:13 09/16/19 20:39 Dilaudid IVPUSH 09/16/19 20:14 1 mg ONETIME STA Administration Sodium Chloride 1,000 mls @ 150 mls/hr 09/16/19 20:15 09/16/19 20:37 Normal Saline IV 150 mls/hr ASDIRECTED STEFANO Administration Sodium Chloride 1,000 mls @ 999 mls/hr 09/16/19 21:39 09/16/19 22:05 Normal Saline IV 09/16/19 22:39 999 mls/hr ONETIME ONE Administration Lactated Ringer's 1,000 mls @ 999 mls/hr 09/16/19 23:36 09/16/19 23:42 Ringers, Lactated IV 09/17/19 00:36 999 mls/hr .BOLUS ONE Administration Iopamidol 100 ml 09/16/19 21:46 09/16/19 21:47 Isovue-300 (61%) IVPUSH 09/16/19 21:47 100 ml ONETIME ONE Administration Ondansetron HCl 4 mg 09/16/19 20:13 09/16/19 20:38 Zofran IVPUSH 09/16/19 20:14 4 mg ONETIME ONE Administration Ondansetron HCl 4 mg 09/16/19 21:34 09/16/19 21:38 Zofran IVPUSH 09/16/19 21:35 4 mg ONETIME ONE Administration Ondansetron HCl Confirm 09/16/19 21:35 09/16/19 21:39 Zofran Administered 09/16/19 21:36 Not Given Dose 4 mg .ROUTE .STK-MED ONE Oseltamivir Phosphate 75 mg 09/16/19 21:43 09/16/19 23:22 Tamiflu PO 09/16/19 21:44 75 mg ONETIME ONE Administration - Re-Assessments/Exams Free Text/Narrative Re-Assessment/Exam: 09/16/19 20:17 On the one hand, the patient is clinically suffering from influenza, but on the other hand, her abdominal pain and examination are concerning for appendicitis, possibly even perforated appendicitis, as she reports rebound tenderness. For today's purposes, I have ordered an influenza swab, a rapid strep swab, and a chest x-ray to evaluate her URI and pulmonary symptoms, along with blood work and a CT scan of her abdomen and pelvis with oral and IV contrast to evaluate her abdominal symptoms. I have also ordered orthostatics, given her report of near-syncope earlier today. In the meantime, the patient will be given IV Dilaudid, IV Zofran, and IV fluid. 09/16/19 21:35 Notified by Andressa PERSAUD that the patient is dry heaving. I have ordered a second dose of IV Zofran 4 mg. 09/16/19 21:39 The patient is orthostatic. The patient's CBC is unremarkable. Her CMP is remarkable for a potassium slightly depressed at 3.4 and a blood glucose slightly elevated at 112, with the remainder of her CMP being unremarkable. Her quantitative hCG is < 1.0. Her influenza swab is positive for influenza A. Her rapid strep test is negative. The chest x-ray and CT scan of the abdomen and pelvis are still pending. I have switched the patient's IV fluid to a fluid bolus, and we will recheck orthostatics after 1 L has infused. The patient will be started on Tamiflu. 09/16/19 22:37 CT of the abdomen and pelvis with oral and IV contrast is read by [facility] as "No sign of acute intra-abdominal pathology. Normal appendix." 09/16/19 23:16 Two-view chest radiograph appears to be grossly normal. The cardiac silhouette is within normal limits. No pulmonary vascular congestion. No pleural effusions. No focal infiltrate. No pneumothorax. Formal read per the Radiologist pending. Repeat orthostatics pending. 09/17/19 01:04 Following 1 L of NS, the patient was still orthostatic. She was then given 1 L of LR, and, unfortunately, she is still orthostatic. I will recommend placement into observation for continued IV fluid. 09/17/19 01:09 The above plan was discussed with the patient and her boyfriend. She is agreeable. I will write bridge orders. Departure - Departure Time of Disposition: 01:10 Disposition: Refer to Observation Condition: Good Clinical Impression: Influenza A, Orthostasis, Nausea & vomiting, Right lower quadrant abdominal pain of unknown etiology - Discharge Information *PRESCRIPTION DRUG MONITORING PROGRAM REVIEWED*: Not Applicable *COPY OF PRESCRIPTION DRUG MONITORING REPORT IN PATIENT JIMI: Not Applicable Sepsis Event Note - Evaluation Sepsis Screening Result: No Definite Risk - Focused Exam Vital Signs: Vital Signs Temp Pulse Resp BP Pulse Ox 09/16/19 19:30 38.5 C H 105 H 30 H 141/85 H 100 Date Exam was Performed: 09/17/19 Time Exam was Performed: 06:09 - My Orders Last 24 Hours: My Active Orders 09/16/19 20:10 CULTURE STREP A CONFIRMATION [RM] Stat STREP SCRN A RAPID W CULT CONF [RM] Stat 09/16/19 20:13 Abdomen Pelvis w Cont [CT] Stat 09/16/19 20:16 Chest 2V [CR] Stat 09/16/19 21:46 Sodium Chloride 0.9% [Saline Flush] 10 ml FLUSH ONETIME PRN 09/17/19 01:35 Admission Status [Patient Status] [ADT] Routine - Assessment/Plan Last 24 Hours: My Active Orders 09/16/19 20:10 CULTURE STREP A CONFIRMATION [RM] Stat STREP SCRN A RAPID W CULT CONF [RM] Stat 09/16/19 20:13 Abdomen Pelvis w Cont [CT] Stat 09/16/19 20:16 Chest 2V [CR] Stat 09/16/19 21:46 Sodium Chloride 0.9% [Saline Flush] 10 ml FLUSH ONETIME PRN 09/17/19 01:35 Admission Status [Patient Status] [ADT] Routine
[2019-09-16] MEDS ORDERED: Diatrizoate Meglumine/Diatrizoate Sodium 37% 120 ML Bottle PO ONE (21:30)
[2019-09-16] MEDS: Ondansetron 4 MG/2 ML SDV ONE ×2 (21:38→21:39)
[2019-09-16] MEDS ORDERED: Sodium Chloride 0.9% 1,000 ML IV ONE (21:39)
[2019-09-16] MEDS ORDERED: Oseltamivir 75 MG Cap PO ONE (21:43)
[2019-09-16] MEDS ORDERED: Sodium Chloride 0.9% 10 ML Syringe FLUSH PRN (21:46)
[2019-09-16] MEDS ORDERED: Iopamidol 612 MG/ML 100 ML Bottle IVPUSH ONE (21:46)
[2019-09-16] MEDS ORDERED: Lactated Ringers 1,000 ML IV ONE (23:36)
[2019-09-17] MEDS: Lactated Ringers 1,000 ML IV SCH ×2 (03:15→03:18)
--- NOTE | 2019-09-17 07:03 | CT ---
CT abdomen and pelvis Technique: Multiple axial sections were obtained from slightly below the top of the liver inferiorly through the pubic symphysis. Intravenous and oral contrast was utilized. Delayed images were obtained through the bladder. Comparison: Prior limited right lower quadrant abdominal ultrasound 02/02/19, no prior CT exam is available. Findings: Visualized lung bases show nothing acute. Liver contains no focal parenchymal abnormality. Surgical clips are noted from prior cholecystectomy. Spleen appears within normal limits. Adrenal glands show no nodule. Kidneys show symmetric contrast enhancement without hydronephrosis or mass. 1.5 cm cyst is noted within the right kidney. Pancreas is within normal limits. Aorta shows no aneurysm. No retroperitoneal adenopathy is seen. Appendix is seen which is normal in size. No pelvic mass or adenopathy is seen. No free fluid or inflammatory change is seen. Mild diverticulosis is seen within the sigmoid colon without findings of diverticulitis. No free fluid or inflammatory change is seen. Delayed images show contrast within both distal ureters as well as within the bladder. Bone window settings were reviewed which appear within normal limits for the patient's age. Impression: 1. Nothing acute is identified on CT study of the abdomen and pelvis. Diagnostic code #1 This report was dictated in [place] Standard Time I agree with preliminary report from [facility], finalized on 09/16/19, 11:33 PM Central Time
--- NOTE | 2019-09-17 07:03 | CR ---
Chest: Two views of the chest were obtained. Comparison: No prior chest imaging. Heart size and mediastinum are normal. Lungs are clear with no acute parenchymal change. Bony structures are unremarkable. Impression: 1. Nothing acute is identified on two-view chest x-ray. Diagnostic code #1 This report was dictated in [place] Standard Time
--- NOTE | 2019-09-17 08:31 | PCM.HP.2 ---
H&P History of Present Illness - General Date of Service: 09/17/19 Admit Problem/Dx: Admission Diagnosis/Problem Admission Diagnosis/Problem Influenza due to influenza A virus Source of Information: Patient, Old Records, Provider, RN, RN Notes Reviewed History Limitations: Reports: No Limitations - History of Present Illness Initial Comments - Free Text/Narative: Myrna Vazquez is a 28 yo female who presented to ED on 09/16/2019 with fever, cough, shortness on inspiration, rhinorrhea, and generalized myalgias. Reports symptoms started on 09/15/2019. She also reports right lower quad abdominal pain and watery diarrhea which is dull but becomes sharp if she applies direct pressure. This is worsened with coughing. She reports she felt nausea and vomiting along with near syncope. Denies any chest pain, palpitations, urinary symptoms, vaginal itching, or discharge. She has taken [id number] cough and cold medicines which have not helped. Last menstrual period was approximately 1 month ago. The ED temp was noted to be 101.3. And she was noted to be mildly tachycardic and tachypneic with saturations of 100% on room air. Labs were obtained: WBC is normal at 8.91. Hemoglobin 14.7. Hematocrit 44.6. She is normocytic. Platelets are good at 282,000. Neutrophils are elevated at 72%. There is no bandemia. Sodium is 138. Potassium is mildly low at 3.4. Chloride 101. Carbon oxide 26. Anion gap is 14.4. BUN is 8. Creatinine 1.0. GFR greater than 60. Glucose is slightly high at 112. Calcium 8.7. Bilirubin 0.2. AST is 16, ALT 20, alkaline phosphatase 56. Albumin is slightly low at 3.3. Urine hCG is negative at less than 0.1. She is given a 1 L NS bolus and started on LR at 250 mils per hour. She is given the Dilaudid and an LR bolus. She is also given Zofran for nausea and vomiting. Chest x-ray obtained which shows nothing acute. CT of the abdomen and pelvis is obtained which shows nothing acute. She is noted to be orthostatic prior to the fluid bolus. Influenza screen and rapid strep are both negative. Given her symptoms she is started on Tamiflu. She carries a history of ectopic and spontaneous , migraines, TIA, anxiety, and depression. She is a full code. Her PCP is Dr. Rangel. Her flower machine operator is Dr. Anaya. Her Diamond Assorter is Dr. Burgess. Generalized Pain Score (Numeric/FACES): 8 - Related Data Allergies/Adverse Reactions: Allergies Allergy/AdvReac Type Severity Reaction Status Date / Time Latex, Natural Rubber Allergy Hives Verified 09/17/19 02:36 tramadol AdvReac Nausea Verified 09/17/19 02:36 Home Medications: Home Meds Pnv No.95/Ferrous Fum/Folic AC [ Caplet] 1 tab PO DAILY 11/07/18 [ History] Jublia. 1 tab PO DAILY 08/09/19 [History] Spironolactone [Aldactone] 100 mg PO DAILY 08/09/19 [History] metFORMIN [Glucophage XR] 500 mg PO DAILY 08/09/19 [History] valACYclovir HCl [Valtrex] 400 mg PO TID PRN 08/09/19 [History] Vortioxetine Hydrobromide [Trintellix] 10 mg PO DAILY 09/16/19 [History] Acyclovir 400 mg PO TID 09/17/19 [History] Past Medical History HEENT History: Reports: Other (See Below) Other HEENT History: wears glasses Cardiovascular History: Reports: Other (See Below) Other Cardiovascular History: past history of TIA Genitourinary History: Reports: Other (See Below) Other Genitourinary History: HSV type II 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 History: Reports: Ectopic (x 1), Spontaneous (x 4) Other OB/BYN History: Neurological History: Reports: Migraines (No), TIA (No) Psychiatric History: Reports: Anxiety, Depression Endocrine/Metabolic History: Reports: Other (See Below) Other Endocrine/Metabolic History: Empty Sacsella - Infectious Disease History Infectious Disease History: Reports: Chicken Pox, Influenza - Past Surgical History GI Surgical History: Reports: Cholecystectomy (2013), Colonoscopy (x 1) Female Surgical History: Reports: Section (x 1) Social & Family History - Family History Family Medical History: Noncontributory - Tobacco Use Smoking Status *Q: Current Every Day Smoker Years of Tobacco use: 5 Packs/Tins Daily: 0.1 Used Tobacco, but Quit: No Month/Year Tobacco Last Used: Quit 2016 Tobacco Use Comment: vapes but has no nicotine in it Second Hand Smoke Exposure: No - Caffeine Use Caffeine Use: Reports: Coffee, Soda, Tea Other Caffeine Use: coca cola one can a day , energy drinks occassionally - Recreational Drug Use Recreational Drug Use: No - Living Situation & Occupation Living situation: Reports: , with Family (Daughter) 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 Denies: Wheezing, Pleuritic Chest Pain Cardiovascular: Reports: Dyspnea on Exertion, Lightheadedness. Denies: Chest Pain, Palpitations, Edema, Syncope Gastrointestinal: Reports: Abdominal Pain, Diarrhea, Nausea, Vomiting. Denies: Black Stool, Bloody Stool, Constipation Genitourinary: Reports: No Symptoms. Denies: Pain Musculoskeletal: Reports: Muscle Pain (generalized ), Muscle Stiffness ( generalized ) Skin: Reports: No Symptoms Psychiatric: Reports: No Symptoms. Denies: Confusion Neurological: Reports: No Symptoms Hematologic/Lymphatic: Reports: No Symptoms Immunologic: Reports: No Symptoms Exam - Exam Exam: See Below - Vital Signs Vital Signs: Last Vital Signs Temp 98.2 F 09/17/19 02:31 Pulse 91 09/17/19 02:31 Resp 20 09/17/19 02:31 BP 117/67 09/17/19 02:31 Pulse Ox 95 09/17/19 02:31 Orthostatic Blood Pressure [ 98/80 Standing] Orthostatic Blood Pressure [ 112/76 Sitting] Orthostatic Blood Pressure [ 108/69 Supine] Weight: 253 lb 1.6 oz - Exam Quality Assessment: DVT Prophylaxis. No: Supplemental Oxygen, Urinary Catheter General: Alert, Oriented, Cooperative. No: Mild Distress HEENT: Conjunctiva Clear, EACs Clear, Hearing Intact, Mucosa Moist & [place], Nares Patent, Posterior Pharynx Clear, PERRLA Neck: Supple, Trachea Midline Lungs: Clear to Auscultation, Normal Respiratory Effort Cardiovascular: Regular Rate, Regular Rhythm GI/Abdominal Exam: Normal Bowel Sounds, Soft, No Distention, Tender (RLQ) (Female) Exam: Deferred Rectal (Female) Exam: Deferred Back Exam: Normal Inspection, Full Range of Motion Extremities: Normal Inspection, Normal Range of Motion, Non-Tender, No Pedal Edema, Normal Capillary Refill Peripheral Pulses: 3+: Radial (L), Radial (R), Dorsalis Pedis (L), Dorsalis Pedis (R) Skin: Warm, Dry, Intact Neurological: Cranial Nerves Intact (Grossly ) Neuro Extensive - Mental Status: Alert, Oriented x3, Normal Mood/Affect - Patient Data Lab Results Last 24 hrs: Laboratory Results - last 24 hr 09/16/19 09/16/19 09/16/19 Range/Units 20:25 20:25 20:25 WBC 8.91 (3.98-10.04) K/mm3 RBC 4.94 (3.98-5.22) M/mm3 Hgb 14.7 (11.2-15.7) gm/dl Hct 44.6 (34.1-44.9) % MCV 90.3 (79.4-94.8) fl MCH 29.8 (25.6-32.2) pg MCHC 33.0 (32.2-35.5) g/dl RDW Std Deviation 45.6 (36.4-46.3) fL Plt Count 282 (182-369) K/mm3 MPV 10.2 (9.4-12.3) fl Neutrophils % (Manual) 72 H (40-60) % Band Neutrophils % 0 (0-10) % Lymphocytes % (Manual) 23 (20-40) % Atypical Lymphs % 0 % Monocytes % (Manual) 5 (2-10) % Eosinophils % (Manual) 0 L (0.7-5.8) % Basophils % (Manual) 0 L (0.1-1.2) Platelet Estimate Adequate Plt Morphology Comment Normal RBC Morph Comment Normal Sodium 138 (136-145) mEq/L Potassium 3.4 L (3.5-5.1) mEq/L Chloride 101 (98-107) mEq/L Carbon Dioxide 26 (21-32) mEq/L Anion Gap 14.4 (5-15) BUN 8 (7-18) mg/dL Creatinine 1.0 (0.55-1.02) mg/dL Est Cr Clr Drug Dosing 82.98 mL/min Estimated GFR (MDRD) > 60 (>60) mL/min BUN/Creatinine Ratio 8.0 L (14-18) Glucose 112 H (74-106) mg/dL Calcium 8.7 (8.5-10.1) mg/dL Total Bilirubin 0.2 (0.2-1.0) mg/dL AST 16 (15-37) U/L ALT 28 (14-59) U/L Alkaline Phosphatase 56 (46-116) U/L Total Protein 8.0 (6.4-8.2) g/dl Albumin 3.3 L (3.4-5.0) g/dl Globulin 4.7 gm/dL Albumin/Globulin Ratio 0.7 L (1-2) HCG, Quant < 1.0 mIU/mL Result Diagrams: 09/16/19 20:25 09/17/19 11:05 Jet Results Last 24 hrs: Microbiology 09/16/19 20:25 Influenza Type A Antigen Screen - Final Nasopharyngeal Swab Positive Influenza A Ag Influenza Type B Antigen Screen - Final NEGATIVE INFLUENZA B VIRUS AG REFERENCE RANGE: NEGATIVE 09/16/19 20:10 Group A Streptococcus Rapid Screen - Final Throat NEGATIVE STREP A SCREEN REFERENCE RANGE: NEGATIVE Sepsis Event Note - Evaluation Sepsis Screening Result: No Definite Risk - Focused Exam Vital Signs: Vital Signs Temp Pulse Resp BP Pulse Ox 09/17/19 02:31 98.2 F 91 20 117/67 95 Date Exam was Performed: 09/17/19 Time Exam was Performed: 12:31 - Problem List (1) Influenza A SNOMED Code(s): 687606754 ICD Code: J10.1 - FLU DUE TO OTH IDENT INFLUENZA VIRUS W OTH RESP MANIFEST Status: Acute Priority: High Current Visit: Yes (2) Nausea & vomiting SNOMED Code(s): 70187361 ICD Code: R11.2 - NAUSEA WITH VOMITING, UNSPECIFIED Status: Acute Priority: High Current Visit: Yes Qualifiers: Vomiting type: unspecified Vomiting Intractability: non-intractable Qualified Code(s): R11.2 - Nausea with vomiting, unspecified (3) Orthostasis SNOMED Code(s): 17620597 ICD Code: I95.1 - ORTHOSTATIC HYPOTENSION Status: Acute Priority: High Current Visit: Yes (4) Right lower quadrant abdominal pain of unknown etiology SNOMED Code(s): 691564057, 600864573 ICD Code: R10.31 - RIGHT LOWER QUADRANT PAIN Status: Acute Priority: High Current Visit: Yes (5) Headache SNOMED Code(s): 20088530 ICD Code: R51 - HEADACHE Status: Chronic Priority: Medium Current Visit : No Qualifiers: Headache type: unspecified Headache chronicity pattern: acute headache Intractability: not intractable Qualified Code(s): R51 - Headache (6) Hypokalemia SNOMED Code(s): 01524939 ICD Code: E87.6 - HYPOKALEMIA Status: Acute Priority: High Current Visit: Yes Problem List Initiated/Reviewed/Updated: Yes Orders Last 24hrs: Active Orders 24 hr Category Date Time Status Admission Status [Patient Status] [ADT] Routine ADT 09/17/19 01:35 Active Orthostatic Vital Signs [RC] ASDIRECTED Care 09/17/19 07:27 Active CULTURE STREP A CONFIRMATION [RM] Stat Lab 09/16/19 20:10 Results STREP SCRN A RAPID W CULT CONF [RM] Stat Lab 09/16/19 20:10 Results Lactated Ringers [Ringers, Lactated] 1,000 ml Med 09/17/19 03:00 Active IV ASDIRECTED Oseltamivir [Tamiflu] Med 09/17/19 09:00 Active 75 mg PO BID Sodium Chloride 0.9% [Saline Flush] Med 09/16/19 21:46 Active 10 ml FLUSH ONETIME PRN Code Status [Resuscitation Status] Routine Resus Stat 09/17/19 02:55 Ordered Medication Orders Lactated Ringer's (Ringers, Lactated) 1,000 mls @ 250 mls/hr IV ASDIRECTED STEFANO Last Admin: 09/17/19 03:18 Dose: 250 mls/hr Infusion: 09/17/19 03:18 Dose: 250 mls/hr Admin: 09/17/19 03:15 Dose: 250 mls/hr Oseltamivir Phosphate (Tamiflu) 75 mg PO BID STEFANO Sodium Chloride (Saline Flush) 10 ml FLUSH ONETIME PRN PRN Reason: KEEP VEIN OPEN Last Admin: 09/16/19 21:47 Dose: 10 ml Assessment/Plan Comment:: I/P: Acute: Influenza A -Reports fever, cough, rhinorrhea, generalized myalgias, nausea, vomiting, diarrhea -Has taken over the counter medications with no real relief -Received influenza vaccine in April 2019 -Influenza A screen positive in ED; Negative strep screen -Given IV fluid boluses in ED -CXR in ED negative -Positive orthostatics in ED - negative on floor -Tamiflu started in ED - Continue BID for 5 days total -Continue IV fluids as ordered -Supportive care -Advised patient she will likely experience symptoms for sometime as this is virus and will take awhile to feel better RLQ abdominal pain -Reports RLQ abdominal pain - worse when coughing or with deep pressure -Reports pain is similar to when she had prior UTI -Negative test in ED -Prior cholecystectomy, but still has appendix. -No vaginal itching or discharge; Denies urinary symptoms -CT abdomen/pelvis negative for anything acute in ED -Mild WBC -Likely 2/2 vomiting -Obtain UA Hypokalemia -Likely 2/2 vomiting, poor oral intake -Potassium 3.4 -Supplement Chronic: Depression Anxiety Migraines TIA Hx/o Ectopic , spontaneous Plan: Admit to medical floor observation status Other orders as above AM labs Home medications as ordered She is ambulatory so no need for PT/OT DVT prophylaxis: SERGE sesay Code status: Full code PCP: Dr. Rangel; Gynecology: Dr. Anaya; Endocrinology: Dr. Burgess - Mortality Measure Prognosis:: Good
[2019-09-17] MEDS ORDERED: Oseltamivir 75 MG Cap PO SCH (09:00)
[2019-09-17] MEDS ORDERED: Ondansetron 4 MG/2 ML SDV IV PRN (09:30)
[2019-09-17] MEDS ORDERED: Acetaminophen 325 MG Tab PO PRN (09:30)
[2019-09-17] MEDS ORDERED: Vortioxetine Hydrobromide [Trintellix] 10 MG PO SCH (09:45)
[2019-09-17] MEDS ORDERED: JUBLIA PO SCH (09:45)
[2019-09-17] MEDS ORDERED: Lactated Ringers 1,000 ML ONE (11:04)
[2019-09-17] MEDS ORDERED: Lactated Ringers 1,000 ML IV SCH (11:15)
[2019-09-17] MEDS ORDERED: Potassium Chloride 20 MEQ Tab.ER PO ONE (12:30)
--- NOTE | 2019-09-17 14:34 | PCM.DCSUM1 ---
Discharge Summary - Hospital Course HPI Initial Comments: Myrna Vazquez is a 28 yo female who presented to ED on 09/16/2019 with fever, cough, shortness on inspiration, rhinorrhea, and generalized myalgias. Reports symptoms started on 09/15/2019. She also reports right lower quad abdominal pain and watery diarrhea which is dull but becomes sharp if she applies direct pressure. This is worsened with coughing. She reports she felt nausea and vomiting along with near syncope. Denies any chest pain, palpitations, urinary symptoms, vaginal itching, or discharge. She has taken fiue-lev-lyzaexy cough and cold medicines which have not helped. Last menstrual period was approximately 1 month ago. The ED temp was noted to be 101.3. And she was noted to be mildly tachycardic and tachypneic with saturations of 100% on room air. Labs were obtained: WBC is normal at 8.91. Hemoglobin 14.7. Hematocrit 44.6. She is normocytic. Platelets are good at 282,000. Neutrophils are elevated at 72%. There is no bandemia. Sodium is 138. Potassium is mildly low at 3.4. Chloride 101. Carbon oxide 26. Anion gap is 14.4. BUN is 8. Creatinine 1.0. GFR greater than 60. Glucose is slightly high at 112. Calcium 8.7. Bilirubin 0.2. AST is 16, ALT 20, alkaline phosphatase 56. Albumin is slightly low at 3.3. Urine hCG is negative at less than 0.1. She is given a 1 L NS bolus and started on LR at 250 mils per hour. She is given the Dilaudid and an LR bolus. She is also given Zofran for nausea and vomiting. Chest x-ray obtained which shows nothing acute. CT of the abdomen and pelvis is obtained which shows nothing acute. She is noted to be orthostatic prior to the fluid bolus. Influenza screen and rapid strep are both negative. Given her symptoms she is started on Tamiflu. She carries a history of ectopic and spontaneous , migraines, TIA, anxiety, and depression. She is a full code. Her PCP is Dr. Rangel. Her optical instrument specialist is Dr. Anaya. Her Route Sales Representative is Dr. Burgess. Diagnosis: Stroke: No - Discharge Data Discharge Date: 09/17/19 (Admit date: 09/16/19) Discharge Disposition: Home, Self-Care 01 Condition: Good - Referral to Home Health Primary Care Physician: Rick Malcolm MD - Discharge Diagnosis/Problem(s) (1) Influenza A SNOMED Code(s): 035063730 ICD Code: J10.1 - FLU DUE TO OTH IDENT INFLUENZA VIRUS W OTH RESP MANIFEST Status: Acute Priority: High Current Visit: Yes (2) Nausea & vomiting SNOMED Code(s): 34476251 ICD Code: R11.2 - NAUSEA WITH VOMITING, UNSPECIFIED Status: Resolved Priority: High Current Visit: Yes Qualifiers: Vomiting type: unspecified Vomiting Intractability: non-intractable Qualified Code(s): R11.2 - Nausea with vomiting, unspecified (3) Orthostasis SNOMED Code(s): 19451322 ICD Code: I95.1 - ORTHOSTATIC HYPOTENSION Status: Acute Priority: High Current Visit: Yes (4) Right lower quadrant abdominal pain of unknown etiology SNOMED Code(s): 259965536, 587464941 ICD Code: R10.31 - RIGHT LOWER QUADRANT PAIN Status: Acute Priority: High Current Visit: Yes (5) Headache SNOMED Code(s): 90597030 ICD Code: R51 - HEADACHE Status: Chronic Priority: Medium Current Visit : No Qualifiers: Headache type: unspecified Headache chronicity pattern: acute headache Intractability: not intractable Qualified Code(s): R51 - Headache (6) Hypokalemia SNOMED Code(s): 03299184 ICD Code: E87.6 - HYPOKALEMIA Status: Acute Priority: High Current Visit: Yes - Patient Summary/Data Labs Pending at D/C: None Recommended Follow-up Testing/Procedures: Follow-up with PCP within 7-10 days of discharge, sooner if needed. Hospital Course: Myrna was admitted to the hospital floor due to influenza A infection resulting in positive orthostatic hypotension. She was given IV fluids and responded well. Repeat orthostatics were negative on the floor. She did report nausea and vomiting in the ED and this has resolved on the floor. She continues to feel pretty poor and it was communicated to her that she likely will feel bad for some time, as the virus needs to work its way through her system. She was started on Tamiflu in the ED and this will be continued 75 mg twice daily for a total of 5 days of treatment. Also given 4 mg p.o. Zofran every 8 as needed for nausea and vomiting. She was instructed to stay hydrated and avoid sugary drinks, coffee, alcohol, or pop. Started to take it easy. 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 She may return to work on 09/24/2019. She reports she would like to go home and sleep in her own bed. This certainly seems reasonable. Was instructed to avoid the extremes of age. She did report some right lower quadrant abdominal pain on admission. CT scan in the ED was negative for anything acute. UA was obtained and was negative. Discussed how this may be muscle strain from coughing and if she did not improve she can follow-up with her primary care provider. Home medications were otherwise continued. She will be discharged home today. - Patient Instructions Diet: Usual Diet as Tolerated Activity: As Tolerated, Rest and Relax Today (and the rest of the week) Driving: Do Not Drive (today) Showering/Bathing: May Shower Notify Provider of: Fever, Increased Pain, Nausea and/or Vomiting Other/Special Instructions: Follow-up with PCP within 7-10 days of discharge, sooner if needed. Push fluids. Drink plenty of water and gatoraid/poweraid. Try to get the sugar free variety. Avoid coffee, pop, alcohol. Because this is a viral illness it takes awhile to clear your system. The tamiflu will help but you will likely feel bad for the next week or so. Avoid work this week. Stay clear of children and older adults if able. May retun to work on 09/24/2019. Should symptoms return or worsen contact your primary care provider or return to the Emergency Department. - Discharge Plan *PRESCRIPTION DRUG MONITORING PROGRAM REVIEWED*: No *COPY OF PRESCRIPTION DRUG MONITORING REPORT IN PATIENT JIMI: No Prescriptions/Med Rec: Ondansetron HCl [Zofran] 4 mg PO Q8H PRN #15 tablet PRN Reason: Nausea/Vomiting Oseltamivir [Tamiflu] 75 mg PO BID #8 cap Home Medications: Home Meds Pnv No.95/Ferrous Fum/Folic AC [ Caplet] 1 tab PO DAILY 11/07/18 [ History] Jublia. 1 tab PO DAILY 08/09/19 [History] Spironolactone [Aldactone] 100 mg PO DAILY 08/09/19 [History] metFORMIN [Glucophage XR] 500 mg PO DAILY 08/09/19 [History] valACYclovir HCl [Valtrex] 400 mg PO TID PRN 08/09/19 [History] Vortioxetine Hydrobromide [Trintellix] 10 mg PO DAILY 09/16/19 [History] Acyclovir 400 mg PO TID 09/17/19 [History] Ondansetron HCl [Zofran] 4 mg PO Q8H PRN #15 tablet 09/17/19 [Rx] Oseltamivir [Tamiflu] 75 mg PO BID #8 cap 09/17/19 [Rx] Oxygen Therapy Mode: Room Air Patient Handouts: Influenza, Adult, [id number], Cough, Adult, [id number], Hypokalemia, Nausea and Vomiting, Adult, [id number], Potassium Content of Foods Referrals: Michael Burgess MD [Ordering Only Provider] - Param Anaya MD [Physician] - Rick Malcolm MD [Primary Care Provider] - 09/24/19 9:30 am (Please follow-up with Dr. Rangel on September 23 at 9:30 a.m. Check in at 9:00 a.m.) - Discharge Summary/Plan Comment DC Time >30 min.: No - General Info Date of Service: 09/17/19 Admission Dx/Problem (Free Text: Admission Diagnosis/Problem Admission Diagnosis/Problem Influenza due to influenza A virus Functional Status: Reports: Pain Controlled, Tolerating Diet, Ambulating, Urinating. Denies: New Symptoms - Review of Systems General: Reports: Weakness, Fatigue, Malaise. Denies: Fever, Chills HEENT: Reports: No Symptoms. Denies: Headaches, Sore Throat, Visual Changes Pulmonary: Reports: Cough. Denies: Shortness of Breath, Pleuritic Chest Pain, Sputum, Wheezing Cardiovascular: Reports: No Symptoms. Denies: Chest Pain, Palpitations, Edema Gastrointestinal: Reports: Abdominal Pain (RLQ), Diarrhea. Denies: Constipation , Nausea, Vomiting Genitourinary: Reports: No Symptoms. Denies: Pain Musculoskeletal: Reports: No Symptoms Skin: Reports: No Symptoms. Denies: Cyanosis Neurological: Reports: No Symptoms. Denies: Confusion, Pre-Existing Deficit, Difficulty Walking, Weakness, Gait Disturbance Psychiatric: Reports: No Symptoms - Patient Data Vitals - Most Recent: Last Vital Signs Temp 97.7 F 09/17/19 11:17 Pulse 88 09/17/19 08:43 Resp 18 09/17/19 11:17 BP 102/51 L 09/17/19 11:17 Pulse Ox 98 09/17/19 11:17 Orthostatic Blood Pressure [ 109/65 Standing] Orthostatic Blood Pressure [ 126/79 Sitting] Orthostatic Blood Pressure [ 114/80 Supine] Weight - Most Recent: 253 lb 1.6 oz I&O - Last 24 hours: Intake & Output 09/16/19 09/17/19 09/17/19 22:59 06:59 14:59 Intake Total 240 Output Total 500 Balance -260 Lab Results - Last 24 hrs: Laboratory Results - last 24 hr 09/16/19 09/16/19 09/16/19 Range/Units 20:25 20:25 20:25 WBC 8.91 (3.98-10.04) K/mm3 RBC 4.94 (3.98-5.22) M/mm3 Hgb 14.7 (11.2-15.7) gm/dl Hct 44.6 (34.1-44.9) % MCV 90.3 (79.4-94.8) fl MCH 29.8 (25.6-32.2) pg MCHC 33.0 (32.2-35.5) g/dl RDW Std Deviation 45.6 (36.4-46.3) fL Plt Count 282 (182-369) K/mm3 MPV 10.2 (9.4-12.3) fl Neutrophils % (Manual) 72 H (40-60) % Band Neutrophils % 0 (0-10) % Lymphocytes % (Manual) 23 (20-40) % Atypical Lymphs % 0 % Monocytes % (Manual) 5 (2-10) % Eosinophils % (Manual) 0 L (0.7-5.8) % Basophils % (Manual) 0 L (0.1-1.2) Platelet Estimate Adequate Plt Morphology Comment Normal RBC Morph Comment Normal Sodium 138 (136-145) mEq/L Potassium 3.4 L (3.5-5.1) mEq/L Chloride 101 (98-107) mEq/L Carbon Dioxide 26 (21-32) mEq/L Anion Gap 14.4 (5-15) BUN 8 (7-18) mg/dL Creatinine 1.0 (0.55-1.02) mg/dL Est Cr Clr Drug Dosing 82.98 mL/min Estimated GFR (MDRD) > 60 (>60) mL/min BUN/Creatinine Ratio 8.0 L (14-18) Glucose 112 H (74-106) mg/dL Calcium 8.7 (8.5-10.1) mg/dL Magnesium (1.8-2.4) mg/dl Total Bilirubin 0.2 (0.2-1.0) mg/dL AST 16 (15-37) U/L ALT 28 (14-59) U/L Alkaline Phosphatase 56 (46-116) U/L Total Protein 8.0 (6.4-8.2) g/dl Albumin 3.3 L (3.4-5.0) g/dl Globulin 4.7 gm/dL Albumin/Globulin Ratio 0.7 L (1-2) HCG, Quant < 1.0 mIU/mL Urine Color (Yellow) Urine Appearance (Clear) Urine pH (5.0-8.0) Ur Specific [place] (1.005-1.030) Urine Protein (Negative) Urine Glucose (UA) (Negative) Urine Ketones (Negative) Urine Occult Blood (Negative) Urine Nitrite (Negative) Urine Bilirubin (Negative) Urine Urobilinogen (0.2-1.0) Ur Leukocyte Esterase (Negative) Urine RBC (0-5) /hpf Urine WBC (0-5) /hpf Ur Squamous Epith Cells (0-5) /hpf Urine Bacteria (FEW) /hpf Urine Mucus (FEW) /hpf 09/17/19 09/17/19 Range/Units 11:05 12:50 WBC (3.98-10.04) K/mm3 RBC (3.98-5.22) M/mm3 Hgb (11.2-15.7) gm/dl Hct (34.1-44.9) % MCV (79.4-94.8) fl MCH (25.6-32.2) pg MCHC (32.2-35.5) g/dl RDW Std Deviation (36.4-46.3) fL Plt Count (182-369) K/mm3 MPV (9.4-12.3) fl Neutrophils % (Manual) (40-60) % Band Neutrophils % (0-10) % Lymphocytes % (Manual) (20-40) % Atypical Lymphs % % Monocytes % (Manual) (2-10) % Eosinophils % (Manual) (0.7-5.8) % Basophils % (Manual) (0.1-1.2) Platelet Estimate Plt Morphology Comment RBC Morph Comment Sodium 142 (136-145) mEq/L Potassium 3.4 L (3.5-5.1) mEq/L Chloride 107 (98-107) mEq/L Carbon Dioxide 25 (21-32) mEq/L Anion Gap 13.4 (5-15) BUN 5 L (7-18) mg/dL Creatinine 0.7 (0.55-1.02) mg/dL Est Cr Clr Drug Dosing 118.54 mL/min Estimated GFR (MDRD) > 60 (>60) mL/min BUN/Creatinine Ratio 7.1 L (14-18) Glucose 98 (74-106) mg/dL Calcium 8.3 L (8.5-10.1) mg/dL Magnesium 1.8 (1.8-2.4) mg/dl Total Bilirubin 0.4 (0.2-1.0) mg/dL AST 14 L (15-37) U/L ALT 20 (14-59) U/L Alkaline Phosphatase 48 (46-116) U/L Total Protein 6.4 (6.4-8.2) g/dl Albumin 2.6 L (3.4-5.0) g/dl Globulin 3.8 gm/dL Albumin/Globulin Ratio 0.7 L (1-2) HCG, Quant mIU/mL Urine Color Yellow (Yellow) Urine Appearance Clear (Clear) Urine pH 8.0 (5.0-8.0) Ur Specific Triplett 1.020 (1.005-1.030) Urine Protein Negative (Negative) Urine Glucose (UA) Negative (Negative) Urine Ketones Negative (Negative) Urine Occult Blood Negative (Negative) Urine Nitrite Negative (Negative) Urine Bilirubin Negative (Negative) Urine Urobilinogen 1.0 (0.2-1.0) Ur Leukocyte Esterase Negative (Negative) Urine RBC 0-5 (0-5) /hpf Urine WBC 0-5 (0-5) /hpf Ur Squamous Epith Cells 0-5 (0-5) /hpf Urine Bacteria Few (FEW) /hpf Urine Mucus Few (FEW) /hpf YOSELYN Results - Last 24 hrs: Microbiology 09/16/19 20:25 Influenza Type A Antigen Screen - Final Nasopharyngeal Swab Positive Influenza A Ag Influenza Type B Antigen Screen - Final NEGATIVE INFLUENZA B VIRUS AG REFERENCE RANGE: NEGATIVE 09/16/19 20:10 Group A Streptococcus Rapid Screen - Final Throat NEGATIVE STREP A SCREEN REFERENCE RANGE: NEGATIVE Med Orders - Current: Current Medications Acetaminophen (Tylenol) 650 mg PO Q4H PRN PRN Reason: Pain (Mild 1-3)/fever Acyclovir (Zovirax) 400 mg PO TID [facility] Last Admin: 09/17/19 14:06 Dose: 400 mg Lactated Ringer's (Ringers, Lactated) 1,000 mls @ 125 mls/hr IV ASDIRECTED [facility] Last Admin: 09/17/19 11:11 Dose: 125 mls/hr Ondansetron HCl (Zofran) 4 mg IV Q6H PRN PRN Reason: Nausea/Vomiting Oseltamivir Phosphate (Tamiflu) 75 mg PO BID [facility] Last Admin: 09/17/19 08:34 Dose: 75 mg Jublia. 1 Tab 0 each PO DAILY [facility] Last Admin: 09/17/19 11:16 Dose: Not Given Vortioxetine Hydrobromide [ Trintellix] 10 Mg 0 each PO DAILY [facility] Last Admin: 09/17/19 11:16 Dose: Not Given Sodium Chloride (Saline Flush) 10 ml FLUSH ONETIME PRN PRN Reason: KEEP VEIN OPEN Last Admin: 09/16/19 21:47 Dose: 10 ml Discontinued Medications Diatrizoate Meglum/Diatrizoate Sod (Gastrografin 37%) 60 ml PO ONETIME ONE Stop: 09/16/19 21:31 Last Admin: 09/16/19 21:46 Dose: 60 ml Hydromorphone HCl (Dilaudid) 1 mg IVPUSH ONETIME STA Stop: 09/16/19 20:14 Last Admin: 09/16/19 20:39 Dose: 1 mg Sodium Chloride (Normal Saline) 1,000 mls @ 150 mls/hr IV ASDIRECTED [facility] Last Admin: 03/01/20 20:37 Dose: 150 mls/hr Sodium Chloride (Normal Saline) 1,000 mls @ 999 mls/hr IV ONETIME ONE Stop: 09/16/19 22:39 Last Admin: 09/16/19 22:05 Dose: 999 mls/hr Lactated Ringer's (Ringers, Lactated) 1,000 mls @ 999 mls/hr IV .BOLUS ONE Stop: 09/17/19 00:36 Last Admin: 09/16/19 23:42 Dose: 999 mls/hr Lactated Ringer's (Ringers, Lactated) 1,000 mls @ 250 mls/hr IV ASDIRECTED [facility] Last Admin: 09/17/19 03:18 Dose: 250 mls/hr Lactated Ringer's (Ringers, Lactated) Confirm Administered Dose 1,000 mls @ as directed .ROUTE .STK-MED ONE Stop: 09/17/19 11:05 Last Admin: 09/17/19 11:16 Dose: Not Given Iopamidol (Isovue-300 (61%)) 100 ml IVPUSH ONETIME ONE Stop: 09/16/19 21:47 Last Admin: 09/16/19 21:47 Dose: 100 ml Ondansetron HCl (Zofran) 4 mg IVPUSH ONETIME ONE Stop: 09/16/19 20:14 Last Admin: 09/16/19 20:38 Dose: 4 mg Ondansetron HCl (Zofran) 4 mg IVPUSH ONETIME ONE Stop: 09/16/19 21:35 Last Admin: 09/16/19 21:38 Dose: 4 mg Ondansetron HCl (Zofran) Confirm Administered Dose 4 mg .ROUTE .STK-MED ONE Stop: 09/16/19 21:36 Last Admin: 09/16/19 21:39 Dose: Not Given Oseltamivir Phosphate (Tamiflu) 75 mg PO ONETIME ONE Stop: 09/16/19 21:44 Last Admin: 09/16/19 23:22 Dose: 75 mg Potassium Chloride (Klor-Con M20) 20 meq PO ONETIME ONE Stop: 09/17/19 12:31 Last Admin: 09/17/19 12:35 Dose: 20 meq - Exam Quality Assessment: Reports: DVT Prophylaxis General: Reports: Alert, Oriented, Cooperative, No Acute Distress HEENT: Reports: Pupils Equal, Pupils Reactive, Mucous Membr. Moist/[place] Neck: Reports: Supple, Trachea Midline Lungs: Reports: Clear to Auscultation, Normal Respiratory Effort Cardiovascular: Reports: Regular Rate, Regular Rhythm GI/Abdominal Exam: Normal Bowel Sounds, Soft, No Distention, No Abnormal Bruit, Tender (RLQ ) (Female) Exam: Deferred Rectal (Female) Exam: Deferred Back Exam: Reports: Normal Inspection, Full Range of Motion Extremities: Normal Inspection, Normal Range of Motion, Non-Tender, No Pedal Edema, Normal Capillary Refill Skin: Reports: Warm, Dry, Intact Neurological: Reports: No New Focal Deficit Psy/Mental Status: Reports: Alert, Normal Affect, Normal Mood
[2019-09-17] MEDS ORDERED: Acyclovir 200 MG Cap PO SCH (15:00)
== END 2019-09-17 15:02 | disposition home or self-care (01) ==
LOC: JD.ED 19:08 → JD.MS 09-17 01:41
PROVIDERS: ADMIT Family Medicine; ATTEND Family Medicine
DX: J10.1 Influenza due to other identified influenza virus with other respiratory manifestations (principal); I95.1 Orthostatic hypotension; E87.6 Hypokalemia; R10.31 Right lower quadrant pain; F17.210 Nicotine dependence, cigarettes, uncomplicated; F32.9 Major depressive disorder, single episode, unspecified; F41.9 Anxiety disorder, unspecified; G43.909 Migraine, unspecified, not intractable, without status migrainosus; Z86.73 Personal history of transient ischemic attack (TIA), and cerebral infarction without residual deficits; Z79.84 Long term (current) use of oral hypoglycemic drugs; Z79.899 Other long term (current) drug therapy; Z91.040 Latex allergy status; Z88.8 Allergy status to other drugs, medicaments and biological substances
CPT/HCPCS: 36415; 71046; 74177; 80053; 81001; 83735; 84702; 85007; 85027; 87081; 87430; 87804; 99285; A9270; J1170; J2405; J7030; J7120; Q9963; Q9967; 99282

== ENCOUNTER 2019-12-08 15:48 | Emergency (ER) | payer MEDICAID ==
[2019-12-08] MEDS ORDERED: HYDROmorphone 0.5 MG/0.5 ML Syringe IVPUSH ONE (16:27)
[2019-12-08] MEDS ORDERED: Sodium Chloride 0.9% 10 ML Syringe FLUSH PRN (16:27)
[2019-12-08] MEDS ORDERED: Ondansetron 4 MG/2 ML SDV IVPUSH ONE (16:27)
[2019-12-08] MEDS ORDERED: Sodium Chloride 0.9% 1,000 ML IV SCH ×2 (16:30→18:00)
[2019-12-08] MEDS ORDERED: Sodium Chloride 0.9% 10 ML Syringe FLUSH ONE (16:33)
[2019-12-08] MEDS ORDERED: Iopamidol 612 MG/ML 100 ML Bottle IVPUSH ONE (16:33)
--- NOTE | 2019-12-08 16:41 | EDM.PDOC ---
ED HPI GENERAL MEDICAL PROBLEM - General Chief Complaint: General Stated Complaint: DEHYDRATION/FALLING Time Seen by Provider: 12/08/19 16:05 Source of Information: Reports: Patient History Limitations: Reports: No Limitations ( ) - History of Present Illness INITIAL COMMENTS - FREE TEXT/NARRATIVE: Patient is a 29 year old female who presents to the er with c/o right sided throat and right anterior neck pain, nausea, vomiting, lightheadedness, and falling upon standing. Patient was seen in the clinic 3 days ago with complaints of sore throat, and fever. Rapid strep was completed and found to be negative, however she was treated for strep with azithromycin based on her symptoms. She does have a history of strep throat. She states since that time , her pain and swelling in her throat and ri ght tonsil has worsened. She has been lightheaded upon standing and fallen on a number of occasions after she tried to walk when she stood up. She has been taking ibuprofen as needed for pain with little relief. She continues to spike fevers. She states that the pain is radiating up into her ear started which it was not doing previously. Treatments HOSPITAL STAFF PHARMACIST: Reports: NSAIDS, Other (see below) Other Treatments HOSPITAL STAFF PHARMACIST: zpak, Headache Pain Score (Numeric/FACES): 10 - Related Data Allergies Allergy/AdvReac Type Severity Reaction Status Date / Time Latex, Natural Rubber Allergy Hives Verified 12/08/19 16:03 tramadol AdvReac Nausea Verified 12/08/19 16:03 Home Meds: Home Meds Pnv No.95/Ferrous Fum/Folic AC [ Caplet] 1 tab PO DAILY 11/07/18 [ History] Jublia. 1 tab PO DAILY 08/09/19 [History] Spironolactone [Aldactone] 100 mg PO DAILY 08/09/19 [History] metFORMIN [Glucophage XR] 500 mg PO DAILY 08/09/19 [History] valACYclovir HCl [Valtrex] 400 mg PO TID PRN 08/09/19 [History] Vortioxetine Hydrobromide [Trintellix] 10 mg PO DAILY 09/16/19 [History] Acyclovir 400 mg PO TID 09/17/19 [History] ondansetron HCL [Zofran] 4 mg PO Q8H PRN #15 tablet 09/17/19 [Rx] Acetaminophen/HYDROcodone [Palmer 325-5 MG] 1 tab PO Q4H PRN #15 tablet 12/08/19 [Rx] Phentermine HCl 15 mg PO DAILY 12/08/19 [History] Topiramate 25 mg PO DAILY 12/08/19 [History] Past Medical History HEENT History: Reports: Other (See Below) Other HEENT History: wears glasses Cardiovascular History: Reports: Other (See Below) Other Cardiovascular History: past history of TIA Genitourinary History: Reports: Other (See Below) Other Genitourinary History: HSV type II SCHEDULE CHECKER History: Reports: Ectopic , Spontaneous Other SCHEDULE CHECKER History: Neurological History: Reports: Migraines, TIA Psychiatric History: Reports: Anxiety, Depression Endocrine/Metabolic History: Reports: Other (See Below) Other Endocrine/Metabolic History: Empty Sacsella - Infectious Disease History Infectious Disease History: Reports: Herpes - Past Surgical History GI Surgical History: Reports: Cholecystectomy, Colonoscopy Female Surgical History: Reports: Section Social & Family History - Family History Family Medical History: Noncontributory - Tobacco Use Smoking Status *Q: Former Smoker Used Tobacco, but Quit: Yes Month/Year Tobacco Last Used: 2011 - Caffeine Use Caffeine Use: Reports: Coffee Other Caffeine Use: coca cola one can a day , energy drinks occassionally - Recreational Drug Use Recreational Drug Use: No - Living Situation & Occupation Living situation: Reports: , with Family (Daughter) 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 Denies: Shortness of Breath Cardiovascular: Reports: Lightheadedness. Denies: Chest Pain Endocrine: Reports: No Symptoms GI/Abdominal: Reports: Nausea, Vomiting. Denies: Abdominal Pain : Reports: No Symptoms Musculoskeletal: Reports: No Symptoms Skin: Reports: No Symptoms Neurological: Reports: Dizziness, Headache. Denies: Confusion Psychiatric: Reports: No Symptoms Hematologic/Lymphatic: Reports: No Symptoms Immunologic: Reports: No Symptoms ED EXAM, GENERAL - Physical Exam Exam: See Below Exam Limited By: No Limitations General Appearance: Alert, WD/WN, Mild Distress, Other (Muffled voice) Ear Exam: Bilateral Ear: TM normal Throat/Mouth: No Airway Compromise, Inflammation (Significant right tonsillar erythema with large amounts of exudate. 1 small area of exudate to the left tonsil with minimal erythema.) Head: Atraumatic, Normocephalic Neck: Normal Inspection, Lymphadenopathy (R), Tender Lateral (right) Respiratory/Chest: No Respiratory Distress, Lungs Clear, Normal Breath Sounds, No Accessory Muscle Use, Chest Non-Tender Cardiovascular: Normal Peripheral Pulses, Regular Rate, Rhythm, No Edema, No Gallop, No JVD, No Murmur, No Rub GI/Abdominal: Normal Bowel Sounds, Soft, Non-Tender, No Organomegaly, No Distention, No Abnormal Bruit, No Mass Neurological: Alert, Oriented, CN II-XII Intact, Normal Cognition, Normal Gait, Normal Reflexes, No Motor/Sensory Deficits Psychiatric: Normal Affect, Normal Mood Skin Exam: Warm, Dry, Intact, Normal Color, No Rash Course - Vital Signs Last Recorded V/S: Last Vital Signs Temp 103.7 F H 12/08/19 19:07 Pulse 114 H 12/08/19 19:07 Resp 20 12/08/19 19:07 BP 106/56 L 12/08/19 19:07 Pulse Ox 97 12/08/19 19:07 Orthostatic Blood Pressure [ 112/62 Standing] Orthostatic Blood Pressure [ 124/76 Sitting] Orthostatic Blood Pressure [ 106/58 Supine] - Orders/Labs/Meds Orders: Active Orders 24 hr Category Date Time Status Orthostatic Vital Signs [RC] ASDIRECTED Care 12/08/19 16:09 Active Peripheral IV Care [RC] . DIRECTED Care 12/08/19 16:27 Active CULTURE STREP A CONFIRMATION [RM] Stat Lab 12/08/19 16:25 Results Rapid Strep w/culture conf [STREP SCRN A RAPID W CULT Lab 12/08/19 16:25 Results CONF] [RM] Stat Peripheral IV Insertion Adult [OM.PC] Stat Oth 12/08/19 16:26 Ordered Labs: Laboratory Tests 12/08/19 12/08/19 12/08/19 Range/Units 16:38 16:38 16:38 WBC 9.11 (3.98-10.04) K/mm3 RBC 5.22 (3.98-5.22) M/mm3 Hgb 15.4 (11.2-15.7) gm/dl Hct 45.7 H (34.1-44.9) % MCV 87.5 (79.4-94.8) fl MCH 29.5 (25.6-32.2) pg MCHC 33.7 (32.2-35.5) g/dl RDW Std Deviation 42.4 (36.4-46.3) fL Plt Count 213 (182-369) K/mm3 MPV 11.0 (9.4-12.3) fl Neutrophils % (Manual) 81 H (40-60) % Band Neutrophils % 5 (0-10) % Lymphocytes % (Manual) 13 L (20-40) % Atypical Lymphs % 0 % Monocytes % (Manual) 1 L (2-10) % Eosinophils % (Manual) 0 L (0.7-5.8) % Basophils % (Manual) 0 L (0.1-1.2) Platelet Estimate Adequate RBC Morph Comment Normal Sodium 134 L (136-145) mEq/L Potassium 3.3 L (3.5-5.1) mEq/L Chloride 95 L D (98-107) mEq/L Carbon Dioxide 26 (21-32) mEq/L Anion Gap 16.3 H (5-15) BUN 7 (7-18) mg/dL Creatinine 1.0 (0.55-1.02) mg/dL Est Cr Clr Drug Dosing 82.23 mL/min Estimated GFR (MDRD) > 60 (>60) mL/min BUN/Creatinine Ratio 7.0 L (14-18) Glucose 107 H (74-106) mg/dL Calcium 9.2 (8.5-10.1) mg/dL Total Bilirubin 1.5 H (0.2-1.0) mg/dL AST 32 (15-37) U/L ALT 42 (14-59) U/L Alkaline Phosphatase 92 (46-116) U/L C-Reactive Protein <0.2 (<1.0) mg/dL Total Protein 8.8 H (6.4-8.2) g/dl Albumin 3.6 (3.4-5.0) g/dl Globulin 5.2 gm/dL Albumin/Globulin Ratio 0.7 L (1-2) Monoscreen Negative (NEGATIVE) Meds: Medications Discontinued Medications Generic Name Dose Route Start Last Admin Trade Name Freq PRN Reason Stop Dose Admin Acetaminophen 975 mg 12/08/19 19:02 12/08/19 19:06 Tylenol PO 12/08/19 19:03 975 mg NOW ONE Administration Hydromorphone HCl 0.5 mg 12/08/19 16:27 12/08/19 16:45 Dilaudid IVPUSH 12/08/19 16:28 0.5 mg ONETIME ONE Administration Sodium Chloride 1,000 mls @ 999 mls/hr 12/08/19 16:30 12/08/19 16:43 Normal Saline IV 999 mls/hr ASDIRECTED STEFANO Administration Sodium Chloride 1,000 mls @ 999 mls/hr 12/08/19 18:00 12/08/19 17:59 Normal Saline IV 999 mls/hr ASDIRECTED STEFANO Administration Iopamidol 100 ml 12/08/19 16:33 12/08/19 17:16 Isovue-300 (61%) IVPUSH 12/08/19 16:34 80 ml ONETIME ONE Administration Ketorolac Tromethamine 30 mg 12/08/19 17:53 12/08/19 17:59 Toradol IVPUSH 12/08/19 17:54 30 mg ONETIME ONE Administration Ondansetron HCl 4 mg 12/08/19 16:27 12/08/19 16:44 Zofran IVPUSH 12/08/19 16:28 4 mg ONETIME ONE Administration Penicillin G Benzathine 1.2 millunits 12/08/19 18:03 12/08/19 18:15 Bicillin L-A IM 12/08/19 18:04 1.2 millunits ONETIME ONE Administration Sodium Chloride 10 ml 12/08/19 16:27 12/08/19 17:17 Saline Flush FLUSH 10 ml ASDIRECTED PRN Administration Keep Vein Open Sodium Chloride 10 ml 12/08/19 16:33 12/08/19 16:43 Saline Flush FLUSH 12/08/19 16:34 10 ml ONETIME ONE Administration - Re-Assessments/Exams Free Text/Narrative Re-Assessment/Exam: And is consistent with a diagnosis of strep tonsillitis. Rapid strep and strep culture that was collected on 04 October was negative for any growth. We will repeat that today. Have also ordered a CBC, CMP, CRP, and a CT soft tissue neck to rule out peritonsillar abscess. Patient is orthostatic. I have ordered a liter of IV normal saline, Zofran for nausea, and Dilaudid for pain. 12/08/19 18:14 Hematology was significant for sodium 134, potassium 3.3, chloride 95, anion gap 16.3. WBCs were normal, however percent of neutrophils was elevated. Lymphocytes, monocytes, eosinophils, and basophils on the manual differential were low indicating this is likely not a viral infection. Gentry screen was found to be negative. Rapid strep was once again negative. Since patient's symptoms are worsening rather than improving with the Z-Benedict, I will give a dose of Bicillin 1.4 g IM. She will also receive a second liter of IV fluids and Toradol for pain. The plan will be to discharge her home with a prescription for Palmer for pain. She does have Zofran ODT at home. Discharge instructions as documented. 12/08/19 19:04 I was notified by nursing staff that patient's temperature was 103.7 temporal. She was covered a number of blankets. Discussed with the patient the option of giving Tylenol and waiting to see if the fever breaks. She states that she would rather go home. We will give her Tylenol 975 mg p.o. now. We will let her go home and rest. Discussed that if she has any problems, she should return to the emergency department. Departure - Departure Time of Disposition: 18:34 Disposition: Home, Self-Care 01 Condition: Good Clinical Impression: Tonsillitis with exudate - Discharge Information *PRESCRIPTION DRUG MONITORING PROGRAM REVIEWED*: Yes *COPY OF PRESCRIPTION DRUG MONITORING REPORT IN PATIENT JIMI: No Prescriptions: Acetaminophen/HYDROcodone [Palmer 325-5 MG] 1 tab PO Q4H PRN #15 tablet PRN Reason: Pain Instructions: Tonsillitis, [id number] Referrals: Rick Malcolm MD [Primary Care Provider] - Forms: ED Department Discharge, ED Return to Work/School Form Additional Instructions: You were seen in the emergency department today for ongoing right sided throat pain, swelling, fever, nausea, vomiting, and lightheadedness. Your work-up included blood work, a strep screen, a mono test, and a CT of your neck. Your work-up was found to be overall normal. Your strep screen was negative. You were negative for mono; for, based on your exam it is felt that you are likely suffering from strep throat. You were given an injection of Bicillin in the emergency department. This is a long-acting antibiotic. You also received 2 L of IV fluid as well as pain medications. A prescription for Palmer for pain has been sent to [facility]. Recommend that you take [id number] ibuprofen for pain. For pain not relieved by this measure, take 1 Palmer every 4 hours as needed. Continue to use your Zofran that you have at home as needed for nausea. Ensure that you are consuming an adequate amount of fluid. If you experience any worsening symptoms, please not hesitate to return to the emergency department. Sepsis Event Note - Evaluation Sepsis Screening Result: No Definite Risk - Focused Exam Vital Signs: Vital Signs Temp Temp Pulse Resp BP Pulse Ox 12/08/19 19:07 103.7 F H 114 H 20 106/56 L 97 12/08/19 19:06 103.7 F H 12/08/19 15:57 99.1 F 98 18 106/68 100 Date Exam was Performed: 12/08/19 Time Exam was Performed: 20:00 - My Orders Last 24 Hours: My Active Orders 12/08/19 16:09 Orthostatic Vital Signs [RC] ASDIRECTED 12/08/19 16:25 CULTURE STREP A CONFIRMATION [RM] Stat Rapid Strep w/culture conf [STREP SCRN A RAPID W CULT CONF] [RM] Stat 12/08/19 16:26 Peripheral IV Insertion Adult [OM.PC] Stat 12/08/19 16:27 Peripheral IV Care [RC] . DIRECTED - Assessment/Plan Last 24 Hours: My Active Orders 12/08/19 16:09 Orthostatic Vital Signs [RC] ASDIRECTED 12/08/19 16:25 CULTURE STREP A CONFIRMATION [RM] Stat Rapid Strep w/culture conf [STREP SCRN A RAPID W CULT CONF] [RM] Stat 12/08/19 16:26 Peripheral IV Insertion Adult [OM.PC] Stat 12/08/19 16:27 Peripheral IV Care [RC] . DIRECTED
--- NOTE | 2019-12-08 17:29 | CT ---
CT neck Technique: Multiple axial sections through the neck were obtained. Intravenous contrast was not utilized. Findings: Paranasal sinuses show nothing acute. Right and left globes are symmetric. Mastoid sinuses show nothing acute. Parotid and submandibular salivary glands are within normal limits. Small scattered lymph nodes within the neck are seen believed to be within normal limits. Visualized lung apices are clear. Parapharyngeal soft tissues appear within normal limits. Slight soft tissue thickening within the right parapharyngeal soft tissues as compared to the left side as seen on the lateral view. This presumably represents mild soft tissue swelling. No low density abscess is seen. Prevertebral soft tissues are normal. Epiglottis is normal. Impression: 1. Slightly asymmetric parapharyngeal soft tissues most likely representing mild soft tissue edema on the right side. No low density abscess is seen. 2. Other portions of the CT study of the neck appear unremarkable. Diagnostic code #2 This report was dictated in MDT
[2019-12-08] MEDS ORDERED: Ketorolac 30 MG/ML SDV IVPUSH ONE (17:53)
[2019-12-08] MEDS ORDERED: Penicillin G Benzathine 1,200,000 Units/2 ML Syringe IM ONE (18:03)
[2019-12-08] MEDS ORDERED: Acetaminophen 325 MG Tab PO ONE (19:02)
== END 2019-12-08 19:10 | disposition home or self-care (01) ==
LOC: JD.ED 15:48
DX: J03.90 Acute tonsillitis, unspecified (principal); R11.2 Nausea with vomiting, unspecified; R42 Dizziness and giddiness; M54.2 Cervicalgia; F41.9 Anxiety disorder, unspecified; F32.9 Major depressive disorder, single episode, unspecified; Z88.5 Allergy status to narcotic agent; Z91.040 Latex allergy status; Z79.899 Other long term (current) drug therapy; Z79.84 Long term (current) use of oral hypoglycemic drugs; Z86.73 Personal history of transient ischemic attack (TIA), and cerebral infarction without residual deficits; Z87.891 Personal history of nicotine dependence
CPT/HCPCS: 36415; 70491; 80053; 85007; 85027; 86140; 86308; 87081; 87430; 96361; 96372; 96374; 96375; 99284; A9270; J0561; J1170; J1885; J2405; J7030; Q9967; 99283

== ENCOUNTER 2019-12-11 06:55 | Inpatient (IN) | payer MEDICAID ==
[2019-12-11] MEDS ORDERED: Sodium Chloride 0.9% 1,000 ML IV ONE ×2 (07:14→08:34)
[2019-12-11] MEDS ORDERED: Ondansetron 4 MG/2 ML SDV IVPUSH ONE (07:14)
[2019-12-11] MEDS ORDERED: Ketorolac 30 MG/ML SDV IVPUSH ONE (07:49)
[2019-12-11] MEDS ORDERED: HYDROmorphone 1 MG/ML Syringe IVPUSH ONE (07:49)
[2019-12-11] MEDS: Potassium Chloride 10 MEQ in Premix Bag 1 BAG IV SCH ×4 (08:47→12:11)
--- NOTE | 2019-12-11 09:10 | EDM.PDOC ---
ED HPI GENERAL MEDICAL PROBLEM - General Chief Complaint: Gastrointestinal Problem Stated Complaint: VOMITING/CHILLS/FEVER/DX STREP Time Seen by Provider: 12/11/19 07:45 Source of Information: Reports: Patient History Limitations: Reports: No Limitations - History of Present Illness INITIAL COMMENTS - FREE TEXT/NARRATIVE: The patient presents with a sore throat, nausea and vomiting, generalized weakness and syncope. She was seen at the [facility] clinic on the and diagnosed with strep throat. She was put on a Z-damian. She came to the ER on the because she still had a sore throat and she had nausea, vomiting and she passed out about 7 times. She was given 2 liters of fluid and IM penicillin. Her throat culture was growing out Beta Strep Group C. She went home and continued with the throat pain, nausea, vomiting and diarrhea. She has generalized weakness. - Related Data Allergies Allergy/AdvReac Type Severity Reaction Status Date / Time Latex, Natural Rubber Allergy Hives Verified 12/11/19 07:11 tramadol AdvReac Nausea Verified 12/11/19 07:11 Home Meds: Home Meds Pnv No.95/Ferrous Fum/Folic AC [ Caplet] 1 tab PO DAILY 11/07/18 [ History] Jublia. 1 tab PO DAILY 08/09/19 [History] metFORMIN [Glucophage XR] 500 mg PO DAILY 08/09/19 [History] valACYclovir HCl [Valtrex] 400 mg PO TID PRN 08/09/19 [History] Vortioxetine Hydrobromide [Trintellix] 10 mg PO DAILY 09/16/19 [History] Acyclovir 400 mg PO TID 09/17/19 [History] ondansetron HCL [Zofran] 4 mg PO Q8H PRN #15 tablet 09/17/19 [Rx] Acetaminophen/HYDROcodone [[place] 325-5 MG] 1 tab PO Q4H PRN #15 tablet 12/08/19 [Rx] Phentermine HCl 15 mg PO DAILY 12/08/19 [History] Topiramate 25 mg PO DAILY 12/08/19 [History] Past Medical History HEENT History: Reports: Impaired Vision, Other (See Below) Other HEENT History: wears glasses Cardiovascular History: Reports: Other (See Below) Other Cardiovascular History: past history of TIA Genitourinary History: Reports: Other (See Below) Other Genitourinary History: HSV type II 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: Reports: Ectopic , Spontaneous Other 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: Neurological History: Reports: Migraines, TIA Psychiatric History: Reports: Anxiety, Depression Endocrine/Metabolic History: Reports: Other (See Below) Other Endocrine/Metabolic History: Empty Sacsella - Infectious Disease History Infectious Disease History: Reports: Herpes - Past Surgical History GI Surgical History: Reports: Cholecystectomy, Colonoscopy Female Surgical History: Reports: Section Social & Family History - Family History Family Medical History: Noncontributory - Tobacco Use Smoking Status *Q: Never Smoker - Caffeine Use Caffeine Use: Reports: Coffee Other Caffeine Use: coca cola one can a day , energy drinks occassionally - Living Situation & Occupation Living situation: Reports: , with Family (Daughter) 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 Denies: Abdominal Pain : Reports: No Symptoms Musculoskeletal: Reports: No Symptoms Skin: Reports: No Symptoms ED EXAM, GI/ABD - Physical Exam Exam: See Below Exam Limited By: No Limitations General Appearance: Alert, No Apparent Distress Ears: Normal External Exam Nose: Normal Inspection Throat/Mouth: Other (Moderate edema and erythema of the right tonsil) Head: Atraumatic, Normocephalic Neck: Lymphadenopathy (R) Respiratory/Chest: No Respiratory Distress, Lungs Clear, Normal Breath Sounds Cardiovascular: Regular Rate, Rhythm, No Edema, No Murmur GI/Abdominal Exam: Soft, Non-Tender, No Organomegaly, No Mass EKG INTERPRETATION EKG Date: 12/11/19 Time: 08:51 Rhythm: Other (sinus tachycardia) Rate (Beats/Min): 103 [place]: Normal P-Wave: Present QRS: Normal ST-T: Normal QT: Prolonged Course - Vital Signs Last Recorded V/S: Last Vital Signs Temp 98.1 F 12/11/19 07:07 Pulse 122 H 12/11/19 07:07 Resp 16 12/11/19 07:07 BP 114/66 12/11/19 07:07 Pulse Ox 96 12/11/19 07:07 - Orders/Labs/Meds Orders: Active Orders 24 hr Category Date Time Status EKG Documentation Completion [RC] ASDIRECTED Care 12/11/19 08:43 Active Potassium Chloride [KCl 10 MEQ in Water 100 ML] 10 meq Med 12/11/19 08:45 Active Premix Bag 1 bag IV Q1H Sodium Chloride 0.9% [Normal Saline] 1,000 ml Med 12/11/19 08:34 Active IV ONETIME EKG 12 Lead [EK] Stat Ther 12/11/19 08:42 Ordered Medication Orders Sodium Chloride (Normal Saline) 1,000 mls @ 1,000 mls/hr IV ONETIME ONE Stop: 12/11/19 09:33 Last Admin: 12/11/19 08:48 Dose: 1,000 mls/hr Potassium Chloride 10 meq/ (Premix) 100 mls @ 100 mls/hr IV Q1H STEFANO Stop: 12/11/19 12:44 Last Admin: 12/11/19 08:47 Dose: 100 mls/hr Labs: Laboratory Tests 12/11/19 12/11/19 12/11/19 Range/Units 07:30 07:30 07:30 WBC 7.81 (3.98-10.04) K/mm3 RBC 4.28 (3.98-5.22) M/mm3 Hgb 12.5 D (11.2-15.7) gm/dl Hct 36.8 (34.1-44.9) % MCV 86.0 (79.4-94.8) fl MCH 29.2 (25.6-32.2) pg MCHC 34.0 (32.2-35.5) g/dl RDW Std Deviation 41.9 (36.4-46.3) fL Plt Count 113 L D (182-369) K/mm3 MPV 11.6 (9.4-12.3) fl Neut % (Auto) 91.6 H (34.0-71.1) % Lymph % (Auto) 4.5 L (19.3-51.7) % Gila % (Auto) 3.1 L (4.7-12.5) % Eos % (Auto) 0.1 L (0.7-5.8) Baso % (Auto) 0.1 (0.1-1.2) % Neut # (Auto) 7.15 H (1.56-6.13) K/mm3 Lymph # (Auto) 0.35 L (1.18-3.74) K/mm3 Gila # (Auto) 0.24 (0.24-0.36) K/mm3 Eos # (Auto) 0.01 L (0.04-0.36) K/mm3 Baso # (Auto) 0.01 (0.01-0.08) K/mm3 Manual Slide Review Abnormal smear Sodium 137 (136-145) mEq/L Potassium 2.2 L* (3.5-5.1) mEq/L Chloride 99 (98-107) mEq/L Carbon Dioxide 26 (21-32) mEq/L Anion Gap 14.2 (5-15) BUN 10 (7-18) mg/dL Creatinine 1.0 (0.55-1.02) mg/dL Est Cr Clr Drug Dosing 82.23 mL/min Estimated GFR (MDRD) > 60 (>60) mL/min BUN/Creatinine Ratio 10.0 L (14-18) Glucose 168 H (74-106) mg/dL Calcium 8.1 L (8.5-10.1) mg/dL Magnesium 1.4 L (1.8-2.4) mg/dl Total Bilirubin 0.9 (0.2-1.0) mg/dL AST 22 (15-37) U/L ALT 29 (14-59) U/L Alkaline Phosphatase 121 H (46-116) U/L C-Reactive Protein 25.0 H* (<1.0) mg/dL Total Protein 6.4 (6.4-8.2) g/dl Albumin 2.4 L (3.4-5.0) g/dl Globulin 4.0 gm/dL Albumin/Globulin Ratio 0.6 L (1-2) Meds: Medications Generic Name Dose Route Start Last Admin Trade Name Freq PRN Reason Stop Dose Admin Sodium Chloride 1,000 mls @ 1,000 mls/hr 12/11/19 08:34 12/11/19 08:48 Normal Saline IV 12/11/19 09:33 1,000 mls/hr ONETIME ONE Administration Potassium Chloride 10 meq/ 100 mls @ 100 mls/hr 12/11/19 08:45 12/11/19 08:47 Premix IV 12/11/19 12:44 100 mls/hr Q1H STEFANO Administration Discontinued Medications Generic Name Dose Route Start Last Admin Trade Name Amilcar PRN Reason Stop Dose Admin Hydromorphone HCl 1 mg 12/11/19 07:49 12/11/19 07:55 Dilaudid IVPUSH 12/11/19 07:50 1 mg ONETIME ONE Administration Sodium Chloride 1,000 mls @ 999 mls/hr 12/11/19 07:14 12/11/19 07:32 Normal Saline IV 12/11/19 08:14 999 mls/hr ONETIME ONE Administration Ketorolac Tromethamine 30 mg 12/11/19 07:49 12/11/19 07:56 Toradol IVPUSH 12/11/19 07:50 30 mg ONETIME ONE Administration Ondansetron HCl 4 mg 12/11/19 07:14 12/11/19 07:32 Zofran IVPUSH 12/11/19 07:15 4 mg ONETIME ONE Administration - Re-Assessments/Exams Free Text/Narrative Re-Assessment/Exam: 12/11/19 09:11 I ordered an IV NS 1L bolus, zofran 4mg IV, dilaudid 1mg IV, toradol 30mg IV and labs. Her WBC was normal. Her platelets were low at 113. Her K was 2.2. Three days ago it was 2.2. I orderd 40meq IV. Her glucose was 168. Her alk phos was elevated at 121. Her CRP was 25 today. Three days ago it was 36.7. Her mono was negative. Her EKG shows a NSR with prolonged QTc. I feel she needs to be admitted. I called Dr Quick and he agreed to the admission. 12/11/19 09:18 Her magnesium is low so I did order magnesium 1 gram IV. Departure - Departure Time of Disposition: 09:20 Disposition: Admitted As Inpatient 64 Condition: Fair Clinical Impression: Hypokalemia, Hypomagnesemia, Tonsillitis with exudate Nausea & vomiting Qualifiers: Vomiting type: unspecified Vomiting Intractability: unspecified Qualified Code( s): R11.2 - Nausea with vomiting, unspecified Diarrhea Qualifiers: Diarrhea type: unspecified type Qualified Code(s): R19.7 - Diarrhea, unspecified Syncope Qualifiers: Syncope type: unspecified Qualified Code(s): R55 - Syncope and collapse - Discharge Information Referrals: Rick Malcolm MD [Primary Care Provider] - Sepsis Event Note - Evaluation Sepsis Screening Result: No Definite Risk - Focused Exam Vital Signs: Vital Signs Temp Pulse Resp BP Pulse Ox 12/11/19 07:07 98.1 F 122 H 16 114/66 96 Date Exam was Performed: 12/11/19 Time Exam was Performed: 09:05 - My Orders Last 24 Hours: My Active Orders 12/11/19 08:34 Sodium Chloride 0.9% [Normal Saline] 1,000 ml IV ONETIME 12/11/19 08:42 EKG 12 Lead [EK] Stat 12/11/19 08:43 EKG Documentation Completion [RC] ASDIRECTED 12/11/19 08:45 Potassium Chloride [KCl 10 MEQ in Water 100 ML] 10 meq Premix Bag 1 bag IV Q1H - Assessment/Plan Last 24 Hours: My Active Orders 12/11/19 08:34 Sodium Chloride 0.9% [Normal Saline] 1,000 ml IV ONETIME 12/11/19 08:42 EKG 12 Lead [EK] Stat 12/11/19 08:43 EKG Documentation Completion [RC] ASDIRECTED 12/11/19 08:45 Potassium Chloride [KCl 10 MEQ in Water 100 ML] 10 meq Premix Bag 1 bag IV Q1H
--- NOTE | 2019-12-11 09:29 | PCM.HP.2 ---
H&P History of Present Illness - General Date of Service: 12/11/19 Source of Information: Patient, Old Records, Provider, RN, RN Notes Reviewed History Limitations: Reports: No Limitations - History of Present Illness Initial Comments - Free Text/Narative: Myrna Vazquez is a 29 yo female who presented to ED on 12/11/2019 with sore throat, nausea, vomiting, generalized weakness, and syncope. She was seen in the COVID clinic on the and diagnosed with strep throat. The records indicate this was group C strep. Screen was negative at that time. She started on a Z-Benedict at that time. She then presented to the ED on the because she was still having sore throat along with nausea and vomiting. She also reported that she had 7 syncopal episodes. She was given 2 L of IV fluid and IM penicillin. She was discharged home however symptoms did not resolve. In the ED she is afebrile at 98.1 but she is tachycardic with a pulse of 122. Respirations are 16. Blood pressure 114/66. Pulse ox 96%. EKG is obtained showing sinus tachycardia with a prolonged QT. Right tonsil is noted to be erythematous and edematous. There is no leukocytosis noted on her CBC. Sodium is on the low end of normal but her potassium is very low at 2.2. Magnesium was also found to be low at 1.4. P is quite high at 25.0. She is given 2 L of fluid bolus along with Dilaudid and Toradol for pain. She is also given Zofran. She started on 1 g of IV magnesium and 4 potassium riders. She carries a history of TIA, HSV type II, ectopic , migraines, anxiety , depression, empty sacsella. She is not a smoker. Her PCP is Dr. Rangel. She subsequently admitted to the floor observation status on telemetry for management of her hypokalemia, tonsillitis, and hypomagnesemia. - Related Data Allergies/Adverse Reactions: Allergies Allergy/AdvReac Type Severity Reaction Status Date / Time Latex, Natural Rubber Allergy Hives Verified 12/11/19 10:14 tramadol AdvReac Nausea Verified 12/11/19 10:14 Home Medications: Home Meds Pnv No.95/Ferrous Fum/Folic AC [ Caplet] 1 tab PO DAILY 11/07/18 [ History] metFORMIN [Glucophage XR] 500 mg PO ASDIRECTED 08/09/19 [History] valACYclovir HCl [Valtrex] 400 mg PO TID PRN 08/09/19 [History] Vortioxetine Hydrobromide [Trintellix] 10 mg PO DAILY 09/16/19 [History] Acyclovir 400 mg PO TID 09/17/19 [History] ondansetron HCL [Zofran] 4 mg PO Q8H PRN #15 tablet 09/17/19 [Rx] Acetaminophen/HYDROcodone [[place] 325-5 MG] 1 tab PO Q4H PRN #15 tablet 12/08/19 [Rx] Phentermine HCl 15 mg PO DAILY 12/08/19 [History] Topiramate 25 mg PO DAILY 12/08/19 [History] Desogestrel-Ethinyl Estradiol [Isibloom 28 Day Tablet] 1 tab PO DAILY 12/11/19 [ History] Spironolactone [Aldactone] 100 mg PO DAILY 12/11/19 [History] Past Medical History HEENT History: Reports: Impaired Vision, Other (See Below) Other HEENT History: wears glasses Cardiovascular History: Reports: Other (See Below) Other Cardiovascular History: past history of TIA Genitourinary History: Reports: Other (See Below) Other Genitourinary History: HSV type II [employer]IM[employer]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: Ectopic , Polycystic Ovaries, Spontaneous Other OB/BYN History: Neurological History: Reports: Migraines, TIA Psychiatric History: Reports: Anxiety, Depression Endocrine/Metabolic History: Reports: Other (See Below) Other Endocrine/Metabolic History: Empty Sacsella - Infectious Disease History Infectious Disease History: Reports: Herpes - Past Surgical History GI Surgical History: Reports: Cholecystectomy, Colonoscopy Female Surgical History: Reports: Section Social & Family History - Family History Family Medical History: Noncontributory - Tobacco Use Smoking Status *Q: Never Smoker - Caffeine Use Caffeine Use: Reports: Coffee Other Caffeine Use: coca cola one can a day , energy drinks occassionally - Living Situation & Occupation Living situation: Reports: , with Family (Daughter) 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 Denies : Chills, Fatigue HEENT: Reports: Ear Pain (Right ), Sore Throat. Denies: Headaches, Visual Changes Pulmonary: Reports: Pleuritic Chest Pain (when coughing ), Cough. Denies: Shortness of Breath, Wheezing, Sputum Cardiovascular: Reports: No Symptoms. Denies: Chest Pain, Palpitations, Dyspnea on Exertion, Edema, Lightheadedness Gastrointestinal: Reports: Diarrhea, Hematemesis, Nausea, Vomiting. Denies: Abdominal Pain, Constipation, Difficulty Swallowing, Hematochezia, Melena Genitourinary: Reports: Other (Currently on menses ). Denies: Pain Musculoskeletal: Reports: No Symptoms Skin: Reports: No Symptoms. Denies: Cyanosis Psychiatric: Reports: Depression (hx/o), Anxiety (hx/o) Neurological: Reports: No Symptoms. Denies: Dizziness, Numbness, Pre-Existing Deficit, Tingling, Difficulty Walking, Gait Disturbance Hematologic/Lymphatic: Reports: No Symptoms Immunologic: Reports: No Symptoms Exam - Exam Exam: See Below - Vital Signs Vital Signs: Last Vital Signs Temp 98.1 F 12/11/19 07:07 Pulse 122 H 12/11/19 07:07 Resp 16 12/11/19 07:07 BP 114/66 12/11/19 07:07 Pulse Ox 96 12/11/19 07:07 Weight: 205 lb - Exam Quality Assessment: DVT Prophylaxis General: Alert, Oriented, Cooperative. No: Mild Distress HEENT: Conjunctiva Clear, EACs Clear, EOMI, Hearing Intact, Mucosa Moist & Fox , Posterior Pharynx Clear, Other (Edematous and erythematous right tonsil), PERRLA Neck: Supple, Trachea Midline Lungs: Clear to Auscultation, Normal Respiratory Effort Cardiovascular: Regular Rhythm, Tachycardia GI/Abdominal Exam: Normal Bowel Sounds, Soft, Non-Tender, No Distention (Female) Exam: Deferred Rectal (Female) Exam: Deferred Back Exam: Normal Inspection, Full Range of Motion Extremities: Normal Inspection, Normal Range of Motion, Non-Tender, No Pedal Edema, Normal Capillary Refill Peripheral Pulses: 4+: Radial (L), Radial (R), Dorsalis Pedis (L), Dorsalis Pedis (R) Skin: Warm, Dry, Intact Neurological: Cranial Nerves Intact (Grossly ) Neuro Extensive - Mental Status: Alert, Oriented x3, Normal Mood/Affect - Patient Data Lab Results Last 24 hrs: Laboratory Results - last 24 hr 12/11/19 12/11/19 12/11/19 Range/Units 07:30 07:30 07:30 WBC 7.81 (3.98-10.04) K/mm3 RBC 4.28 (3.98-5.22) M/mm3 Hgb 12.5 D (11.2-15.7) gm/dl Hct 36.8 (34.1-44.9) % MCV 86.0 (79.4-94.8) fl MCH 29.2 (25.6-32.2) pg MCHC 34.0 (32.2-35.5) g/dl RDW Std Deviation 41.9 (36.4-46.3) fL Plt Count 113 L D (182-369) K/mm3 MPV 11.6 (9.4-12.3) fl Neut % (Auto) 91.6 H (34.0-71.1) % Lymph % (Auto) 4.5 L (19.3-51.7) % Frederick % (Auto) 3.1 L (4.7-12.5) % Eos % (Auto) 0.1 L (0.7-5.8) Baso % (Auto) 0.1 (0.1-1.2) % Neut # (Auto) 7.15 H (1.56-6.13) K/mm3 Lymph # (Auto) 0.35 L (1.18-3.74) K/mm3 Frederick # (Auto) 0.24 (0.24-0.36) K/mm3 Eos # (Auto) 0.01 L (0.04-0.36) K/mm3 Baso # (Auto) 0.01 (0.01-0.08) K/mm3 Manual Slide Review Abnormal smear Sodium 137 (136-145) mEq/L Potassium 2.2 L* (3.5-5.1) mEq/L Chloride 99 (98-107) mEq/L Carbon Dioxide 26 (21-32) mEq/L Anion Gap 14.2 (5-15) BUN 10 (7-18) mg/dL Creatinine 1.0 (0.55-1.02) mg/dL Est Cr Clr Drug Dosing 82.23 mL/min Estimated GFR (MDRD) > 60 (>60) mL/min BUN/Creatinine Ratio 10.0 L (14-18) Glucose 168 H (74-106) mg/dL Calcium 8.1 L (8.5-10.1) mg/dL Magnesium 1.4 L (1.8-2.4) mg/dl Total Bilirubin 0.9 (0.2-1.0) mg/dL AST 22 (15-37) U/L ALT 29 (14-59) U/L Alkaline Phosphatase 121 H (46-116) U/L C-Reactive Protein 25.0 H* (<1.0) mg/dL Total Protein 6.4 (6.4-8.2) g/dl Albumin 2.4 L (3.4-5.0) g/dl Globulin 4.0 gm/dL Albumin/Globulin Ratio 0.6 L (1-2) Result Diagrams: 12/11/19 07:30 12/11/19 07:30 Sepsis Event Note - Evaluation Sepsis Screening Result: No Definite Risk - Focused Exam Vital Signs: Vital Signs Temp Pulse Resp BP Pulse Ox 12/11/19 07:07 98.1 F 122 H 16 114/66 96 Date Exam was Performed: 12/11/19 Time Exam was Performed: 12:42 - Problem List (1) Generalized weakness SNOMED Code(s): 51989805 ICD Code: R53.1 - WEAKNESS Status: Acute Priority: High Current Visit: Yes (2) Diarrhea SNOMED Code(s): 35032322 ICD Code: R19.7 - DIARRHEA, UNSPECIFIED Status: Acute Priority: High Current Visit: Yes Qualifiers: Diarrhea type: unspecified type Qualified Code(s): R19.7 - Diarrhea, unspecified (3) Hypokalemia SNOMED Code(s): 50587951 ICD Code: E87.6 - HYPOKALEMIA Status: Acute Priority: High Current Visit: Yes (4) Hypomagnesemia SNOMED Code(s): 400530084 ICD Code: E83.42 - HYPOMAGNESEMIA Status: Acute Priority: High Current Visit: Yes (5) Nausea & vomiting SNOMED Code(s): 77925727 ICD Code: R11.2 - NAUSEA WITH VOMITING, UNSPECIFIED Status: Acute Priority: High Current Visit: Yes Qualifiers: Vomiting type: unspecified Vomiting Intractability: unspecified Qualified Code(s): R11.2 - Nausea with vomiting, unspecified (6) Tonsillitis with exudate SNOMED Code(s): 69591993, 850793459 ICD Code: J03.90 - ACUTE TONSILLITIS, UNSPECIFIED Status: Acute Priority : High Current Visit: Yes (7) History of TIA (transient ischemic attack) SNOMED Code(s): 803143493 ICD Code: Z86.73 - PRSNL HX OF TIA (TIA), AND CEREB INFRC W/O RESID DEFICITS Status: Chronic Priority: Low Current Visit: No (8) History of herpes simplex type 2 infection SNOMED Code(s): 607366227 ICD Code: Z86.19 - PERSONAL HISTORY OF OTHER INFECTIOUS AND PARASITIC DISEASES Status: Chronic Priority: Low Current Visit: No (9) Migraines SNOMED Code(s): 24661180 ICD Code: G43.909 - MIGRAINE, UNSP, NOT INTRACTABLE, WITHOUT STATUS MIGRAINOSUS Status: Chronic Priority: Low Current Visit: No Qualifiers: Migraine type: unspecified Status migrainosus presence: without status migrainosus Intractability: not intractable Qualified Code(s): G43.909 - Migraine, unspecified, not intractable, without status migrainosus (10) Anxiety SNOMED Code(s): 18280910 ICD Code: F41.9 - ANXIETY DISORDER, UNSPECIFIED Status: Chronic Priority : Low Current Visit: No (11) Depression SNOMED Code(s): 91481186 ICD Code: F32.9 - MAJOR DEPRESSIVE DISORDER, SINGLE EPISODE, UNSPECIFIED Status: Chronic Priority: Low Current Visit: No Qualifiers: Depression Type: other depression Qualified Code(s): F32.89 - Other specified depressive episodes (12) Group C streptococcal infection SNOMED Code(s): 963057355 ICD Code: A49.1 - STREPTOCOCCAL INFECTION, UNSPECIFIED SITE Status: Acute Priority: High Current Visit: Yes (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 SNOMED Code(s): 990829605 ICD Code: E83.39 - OTHER DISORDERS OF PHOSPHORUS METABOLISM Status: Acute Priority: High Current Visit: Yes (14) PCOS (polycystic ovarian syndrome) SNOMED Code(s): 466744366 ICD Code: E28.2 - POLYCYSTIC OVARIAN SYNDROME Status: Chronic Priority: Low Current Visit: No Problem List Initiated/Reviewed/Updated: Yes Orders Last 24hrs: Active Orders 24 hr Category Date Time Status EKG Documentation Completion [RC] ASDIRECTED Care 12/11/19 08:43 Active Magnesium Sulfate/D5W [Magnesium Sulfate in D5W 100 Med 12/11/19 09:18 Active Premix] 1 gm Premix Bag 1 bag IV ONETIME Potassium Chloride [KCl 10 MEQ in Water 100 ML] 10 meq Med 12/11/19 08:45 Active Premix Bag 1 bag IV Q1H Sodium Chloride 0.9% [Normal Saline] 1,000 ml Med 12/11/19 08:34 Active IV ONETIME EKG 12 Lead [EK] Stat Ther 12/11/19 08:42 Ordered Medication Orders Sodium Chloride (Normal Saline) 1,000 mls @ 1,000 mls/hr IV ONETIME ONE Stop: 12/11/19 09:33 Last Admin: 12/11/19 08:48 Dose: 1,000 mls/hr Potassium Chloride 10 meq/ (Premix) 100 mls @ 100 mls/hr IV Q1H STEFANO Stop: 12/11/19 12:44 Last Admin: 12/11/19 08:47 Dose: 100 mls/hr Magnesium Sulfate/Dextrose 1 (gm/ Premix) 100 mls @ 100 mls/hr IV ONETIME ONE Stop: 12/11/19 10:17 Assessment/Plan Comment:: Hypokalemia Hypomagnesemia Hypophosphatemia Nausea & vomiting Tonsillitis with exudate Diarrhea Generalized weakness Reports symptoms started with throat pain - seen in COVID clinic on and diagnosed with Group C Strep Started on azithromycin - Frederick negative Returned to ED on due to ongoing symptoms - given IM PCN injection CT scan on 12/08/19 showed no abscess Reports continued throat pain, nausea, vomiting, diarrhea, weakness Erythematous and edematous right tonsil noted on admission No signs of abscess No leukocytosis, CRP 25.0 (down from 36.7) Potassium 2.2 in ED Magnesium 1.4 in ED Phosphorous 1.0 hCG negative Sepsis screen: Beta C strep infection, No documented fever (reports 102 fever at home), Tachycardia, No tachypnea, No leukocytosis, No organ dysfunction -Does not meet criteria No vomiting or diarrhea since on the floor PLAN - Given 4 potassium riders in ED - Given 1 gm Magnesium in ED - supplement for a total of 2 gm - Supplement phosphorous - Urine protein, sodium, potassium - 2L IV fluids given in ED - Cepacol throat lozenges - Monitor labs - IV fluids as ordered - No need for repeat CT scan at this time PCOS On home spironolactone and metformin PLAN - Hold metformin History of herpes simplex type 2 infection On home acyclovir and PRN valacyclovir PLAN - Continue acyclovir Migraines No current symptoms PLAN - Monitor Anxiety Depression On home vortioxetine PLAN Continue home vortioxetine History of TIA (transient ischemic attack) No symptoms at this time PLAN - Monitor DVT prophylaxis: SERGE sesay GI prophylaxis: Not indicated PCP: Dr. Rangel Disposition: Patient will be admitted to the floor observation status for management and monitoring of hypokalemia and hypomagnesemia. Of note: ED admission order was for inpatient, however patient should be admitted observation status. - Mortality Measure Prognosis:: Good
[2019-12-11] MEDS ORDERED: Ketorolac 30 MG/ML SDV IV PRN (09:34)
[2019-12-11] MEDS ORDERED: Benzocaine/Cetylpyridinium/Menthol Lozenge MUCMEM PRN (10:48)
[2019-12-11] MEDS: Acetaminophen 325 MG Tab PO PRN ×3 (10:51→21:54)
[2019-12-11] MEDS ORDERED: Lactated Ringers 1,000 ML IV SCH ×2 (11:00→13:30)
[2019-12-11] MEDS ORDERED: Sodium Phosphate 30 MMOLE in Sodium Chloride 0.9% 250 ML IV ONE (11:30)
[2019-12-11] MEDS ORDERED: valACYclovir 500 MG Tab PO PRN (12:00)
[2019-12-11] MEDS ORDERED: Potassium Phosphates 30 MMOLE in Sodium Chloride 0.9% 500 ML IV ONE (14:00)
[2019-12-11] MEDS: Acyclovir 200 MG Cap PO SCH ×2 (14:37→21:54)
[2019-12-11] MEDS ORDERED: Iopamidol 612 MG/ML 100 ML Bottle IVPUSH ONE (14:53)
[2019-12-11] MEDS ORDERED: Sodium Chloride 0.9% 10 ML Syringe FLUSH PRN (14:53)
[2019-12-11] MEDS ORDERED: ACYCLOVIR 400 MG PO SCH (15:00)
--- NOTE | 2019-12-11 15:59 | CT ---
CT neck Technique: Multiple axial sections were obtained from above the external auditory canals inferiorly to the lung apices. Reconstructed coronal and sagittal images were obtained. Comparison: Previous CT neck study of 12/08/19. Findings scattered lymph nodes are seen within the neck. Most of these lymph nodes appear fairly similar to prior study although several lymph nodes have increased slightly in size which is most likely on an inflammatory basis. Parotid salivary glands and submandibular salivary glands appear within normal limits. Previously noted asymmetric right paratracheal soft tissues appear less prominent on current exam and are only minimally asymmetric. No additional neck abnormality is seen. Prevertebral soft tissues are normal in thickness. Epiglottis is normal. Bone window settings were reviewed which shows no acute osseous finding. Impression: 1. Improved soft tissue asymmetry within the parapharyngeal soft tissues when compared to prior exam. 2. Scattered lymph nodes mostly similar to prior study although larger lymph nodes have minimally increased in size which is most likely an inflammatory basis. 3. No parapharyngeal or neck abscess is seen. Diagnostic code #3 Study was dictated in MDT
[2019-12-11] MEDS: Lactated Ringers 1,000 ML IV SCH ×2 (16:28→21:53)
--- NOTE | 2019-12-11 17:00 | CR ---
Chest: 2 views of the chest were obtained. Comparison: Prior chest x-ray of 09/16/19. Heart size and mediastinum are normal. Lungs are clear with no acute parenchymal change. Bony structures are grossly intact. Impression: 1. Nothing acute is seen on 2 view chest x-ray. Diagnostic code #1 This report was dictated in MDT
--- NOTE | 2019-12-11 17:05 | PCM.SN.2 ---
- Free Text/Narrative Note: Called by nursing secondary to patient having a fever 105.3. Patient was admitted with hypokalemia secondary to nausea, vomiting, and diarrhea. Patient had been treated for strep pharyngitis and a CT scan was done on December 08, 2019 of the neck and soft tissue. This was negative for abscess. She continues to complain of sore throat. She states that she gets chills and then tingling in her hands and feet. This is been going on for a week. She was given an injection of penicillin on the . Blood pressure was 140/95, but respiratory rate was in the 40s and heart rate up to 140. General: Awake and oriented x3. Moderate distress. Oromucosa is moist. Exam of the posterior pharynx shows an enlarged right tonsil with white exudate. Exquisitely tender right lymphadenopathy in the cervical chain. Lungs clear to auscultation bilaterally. Respiratory rate increased. Tachypnea. Heart tachycardic without murmurs, rubs, or gallops. No lower extremity edema. Abdomen is soft and nontender. CT of the soft tissues of the neck with contrast were ordered and showed improvement in her right-sided posterior pharyngeal swelling compared to the . No abscess. Some mildly increased sizes in her largest lymph nodes in her neck but this was felt to be secondary to inflammatory response. Chest x-ray showed no acute changes or infiltrate. Lactic acid was 5.6. Assessment/plan Pharyngitis with significant fever. Sepsis protocol was started. Patient has received well over 2 L of fluid since arrival at the emergency department. Patient continue on 150 mL/h of IV fluids. Unasyn 3 g IV started for broad- spectrum antibiotic coverage with odon. Recheck lactic acid after 3 hours. Tylenol for fever and oxycodone for pain. Blood cultures x2. Coronavirus PCR. Procalcitonin pending.
[2019-12-11] MEDS: Ampicillin/Sulbactam Na 3 GM in Sodium Chloride 0.9% 100 ML IV SCH ×2 (17:07→21:53)
[2019-12-11] MEDS: oxyCODONE 5 MG Tab PO PRN ×2 (17:29→21:54)
[2019-12-11] MEDS ORDERED: Potassium Chloride 20 MEQ Tab.ER PO SCH (21:00)
[2019-12-12] MEDS: Lactated Ringers 1,000 ML IV SCH (04:38)
[2019-12-12] MEDS: Ampicillin/Sulbactam Na 3 GM in Sodium Chloride 0.9% 100 ML IV SCH ×3 (04:38→11:03)
[2019-12-12] MEDS: oxyCODONE 5 MG Tab PO PRN ×2 (04:39→09:01)
[2019-12-12] MEDS: Acetaminophen 325 MG Tab PO PRN (04:40)
[2019-12-12] MEDS ORDERED: Furosemide 40 MG/4 ML VIAL IVPUSH ONE (06:22)
[2019-12-12] MEDS: Albuterol 0.083% 2.5 MG/3 ML Neb Soln NEB PRN ×3 (06:34→22:55)
--- NOTE | 2019-12-12 07:27 | PCM.PN ---
- General Info Date of Service: 12/12/19 Subjective Update: Last BM today Reports she feels pretty crummy Wanting to sleep. Feels somewhat short of breath Requiring 2L oxygen Functional Status: Reports: Pain Controlled, Tolerating Diet, Ambulating. Denies: New Symptoms - Review of Systems General: Reports: Weakness. Denies: Fever (None since last night ), Fatigue, Malaise, Chills HEENT: Reports: Ear Pain (right), Sore Throat. Denies: Eye Pain, Headaches, Sinus Congestion, Visual Changes Pulmonary: Reports: Shortness of Breath. Denies: Cough, Sputum, Wheezing Cardiovascular: Reports: No Symptoms. Denies: Chest Pain, Palpitations, Dyspnea on Exertion Gastrointestinal: Reports: Diarrhea (Improving ). Denies: Abdominal Pain, Constipation, Nausea, Vomiting Genitourinary: Reports: No Symptoms. Denies: Pain Musculoskeletal: Reports: No Symptoms Skin: Reports: No Symptoms. Denies: Cyanosis Neurological: Reports: No Symptoms. Denies: Confusion, Difficulty Walking, Gait Disturbance Psychiatric: Reports: No Symptoms - Patient Data Vitals - Most Recent: Last Vital Signs Temp 98.1 F 12/12/19 04:41 Pulse 93 12/12/19 04:41 Resp 18 12/12/19 04:41 BP 110/62 12/12/19 04:41 Pulse Ox 96 12/12/19 06:28 Weight - Most Recent: 260 lb 9.6 oz I&O - Last 24 Hours: Intake & Output 12/11/19 12/12/19 12/12/19 22:59 06:59 14:59 Intake Total 1134 4326 Output Total 1900 Balance 1134 2426 Lab Results Last 24 Hours: Laboratory Results - last 24 hr 12/11/19 12/11/19 12/11/19 Range/Units 07:30 07:30 07:30 WBC 7.81 (3.98-10.04) K/mm3 RBC 4.28 (3.98-5.22) M/mm3 Hgb 12.5 D (11.2-15.7) gm/dl Hct 36.8 (34.1-44.9) % MCV 86.0 (79.4-94.8) fl MCH 29.2 (25.6-32.2) pg MCHC 34.0 (32.2-35.5) g/dl RDW Std Deviation 41.9 (36.4-46.3) fL Plt Count 113 L D (182-369) K/mm3 MPV 11.6 (9.4-12.3) fl Neut % (Auto) 91.6 H (34.0-71.1) % Lymph % (Auto) 4.5 L (19.3-51.7) % [place] % (Auto) 3.1 L (4.7-12.5) % Eos % (Auto) 0.1 L (0.7-5.8) Baso % (Auto) 0.1 (0.1-1.2) % Neut # (Auto) 7.15 H (1.56-6.13) K/mm3 Lymph # (Auto) 0.35 L (1.18-3.74) K/mm3 [place] # (Auto) 0.24 (0.24-0.36) K/mm3 Eos # (Auto) 0.01 L (0.04-0.36) K/mm3 Baso # (Auto) 0.01 (0.01-0.08) K/mm3 Manual Slide Review Abnormal smear Sodium 137 (136-145) mEq/L Potassium 2.2 L* (3.5-5.1) mEq/L Chloride 99 (98-107) mEq/L Carbon Dioxide 26 (21-32) mEq/L Anion Gap 14.2 (5-15) BUN 10 (7-18) mg/dL Creatinine 1.0 (0.55-1.02) mg/dL Est Cr Clr Drug Dosing 82.23 mL/min Estimated GFR (MDRD) > 60 (>60) mL/min BUN/Creatinine Ratio 10.0 L (14-18) Glucose 168 H (74-106) mg/dL Lactic Acid (0.4-2.0) mmol/L Calcium 8.1 L (8.5-10.1) mg/dL Phosphorus (2.6-4.7) mg/dL Magnesium 1.4 L (1.8-2.4) mg/dl Total Bilirubin 0.9 (0.2-1.0) mg/dL AST 22 (15-37) U/L ALT 29 (14-59) U/L Alkaline Phosphatase 121 H (46-116) U/L C-Reactive Protein 25.0 H* (<1.0) mg/dL Total Protein 6.4 (6.4-8.2) g/dl Albumin 2.4 L (3.4-5.0) g/dl Globulin 4.0 gm/dL Albumin/Globulin Ratio 0.6 L (1-2) HCG, Qual (NEGATIVE) Ur Random Creatinine (30.0-125.0) mg/dL U Random Total Protein (0.0-11.8) mg/dL Ur Random Sodium (40-220) mEq/L SARS Virus RNA (PCR) (NEGATIVE) 12/11/19 12/11/19 12/11/19 Range/Units 07:30 07:30 11:00 WBC (3.98-10.04) K/mm3 RBC (3.98-5.22) M/mm3 Hgb (11.2-15.7) gm/dl Hct (34.1-44.9) % MCV (79.4-94.8) fl MCH (25.6-32.2) pg MCHC (32.2-35.5) g/dl RDW Std Deviation (36.4-46.3) fL Plt Count (182-369) K/mm3 MPV (9.4-12.3) fl Neut % (Auto) (34.0-71.1) % Lymph % (Auto) (19.3-51.7) % [place] % (Auto) (4.7-12.5) % Eos % (Auto) (0.7-5.8) Baso % (Auto) (0.1-1.2) % Neut # (Auto) (1.56-6.13) K/mm3 Lymph # (Auto) (1.18-3.74) K/mm3 [place] # (Auto) (0.24-0.36) K/mm3 Eos # (Auto) (0.04-0.36) K/mm3 Baso # (Auto) (0.01-0.08) K/mm3 Manual Slide Review Sodium (136-145) mEq/L Potassium (3.5-5.1) mEq/L Chloride (98-107) mEq/L Carbon Dioxide (21-32) mEq/L Anion Gap (5-15) BUN (7-18) mg/dL Creatinine (0.55-1.02) mg/dL Est Cr Clr Drug Dosing mL/min Estimated GFR (MDRD) (>60) mL/min BUN/Creatinine Ratio (14-18) Glucose (74-106) mg/dL Lactic Acid (0.4-2.0) mmol/L Calcium (8.5-10.1) mg/dL Phosphorus 1.0 L (2.6-4.7) mg/dL Magnesium (1.8-2.4) mg/dl Total Bilirubin (0.2-1.0) mg/dL AST (15-37) U/L ALT (14-59) U/L Alkaline Phosphatase (46-116) U/L C-Reactive Protein (<1.0) mg/dL Total Protein (6.4-8.2) g/dl Albumin (3.4-5.0) g/dl Globulin gm/dL Albumin/Globulin Ratio (1-2) HCG, Qual Negative (NEGATIVE) Ur Random Creatinine 71.8 (30.0-125.0) mg/dL U Random Total Protein 11.7 (0.0-11.8) mg/dL Ur Random Sodium < 5 L (40-220) mEq/L SARS Virus RNA (PCR) (NEGATIVE) 12/11/19 12/11/19 12/11/19 Range/Units 14:20 14:20 17:09 WBC (3.98-10.04) K/mm3 RBC (3.98-5.22) M/mm3 Hgb (11.2-15.7) gm/dl Hct (34.1-44.9) % MCV (79.4-94.8) fl MCH (25.6-32.2) pg MCHC (32.2-35.5) g/dl RDW Std Deviation (36.4-46.3) fL Plt Count (182-369) K/mm3 MPV (9.4-12.3) fl Neut % (Auto) (34.0-71.1) % Lymph % (Auto) (19.3-51.7) % [place] % (Auto) (4.7-12.5) % Eos % (Auto) (0.7-5.8) Baso % (Auto) (0.1-1.2) % Neut # (Auto) (1.56-6.13) K/mm3 Lymph # (Auto) (1.18-3.74) K/mm3 [place] # (Auto) (0.24-0.36) K/mm3 Eos # (Auto) (0.04-0.36) K/mm3 Baso # (Auto) (0.01-0.08) K/mm3 Manual Slide Review Sodium (136-145) mEq/L Potassium (3.5-5.1) mEq/L Chloride (98-107) mEq/L Carbon Dioxide (21-32) mEq/L Anion Gap (5-15) BUN (7-18) mg/dL Creatinine (0.55-1.02) mg/dL Est Cr Clr Drug Dosing mL/min Estimated GFR (MDRD) (>60) mL/min BUN/Creatinine Ratio (14-18) Glucose (74-106) mg/dL Lactic Acid 5.6 H* 1.9 (0.4-2.0) mmol/L Calcium (8.5-10.1) mg/dL Phosphorus (2.6-4.7) mg/dL Magnesium (1.8-2.4) mg/dl Total Bilirubin (0.2-1.0) mg/dL AST (15-37) U/L ALT (14-59) U/L Alkaline Phosphatase (46-116) U/L C-Reactive Protein (<1.0) mg/dL Total Protein (6.4-8.2) g/dl Albumin (3.4-5.0) g/dl Globulin gm/dL Albumin/Globulin Ratio (1-2) HCG, Qual (NEGATIVE) Ur Random Creatinine (30.0-125.0) mg/dL U Random Total Protein (0.0-11.8) mg/dL Ur Random Sodium (40-220) mEq/L SARS Virus RNA (PCR) Negative (NEGATIVE) 12/12/19 12/12/19 Range/Units 05:20 05:20 WBC 7.30 (3.98-10.04) K/mm3 RBC 3.37 L (3.98-5.22) M/mm3 Hgb 9.8 L D (11.2-15.7) gm/dl Hct 29.9 L (34.1-44.9) % MCV 88.7 (79.4-94.8) fl MCH 29.1 (25.6-32.2) pg MCHC 32.8 (32.2-35.5) g/dl RDW Std Deviation 45.1 (36.4-46.3) fL Plt Count 87 L (182-369) K/mm3 MPV 12.0 (9.4-12.3) fl Neut % (Auto) 79.1 H (34.0-71.1) % Lymph % (Auto) 13.2 L (19.3-51.7) % [place] % (Auto) 6.6 (4.7-12.5) % Eos % (Auto) 0.5 L (0.7-5.8) Baso % (Auto) 0.1 (0.1-1.2) % Neut # (Auto) 5.77 (1.56-6.13) K/mm3 Lymph # (Auto) 0.96 L (1.18-3.74) K/mm3 [place] # (Auto) 0.48 H (0.24-0.36) K/mm3 Eos # (Auto) 0.04 (0.04-0.36) K/mm3 Baso # (Auto) 0.01 (0.01-0.08) K/mm3 Manual Slide Review Abnormal smear Sodium 138 (136-145) mEq/L Potassium 3.2 L (3.5-5.1) mEq/L Chloride 101 (98-107) mEq/L Carbon Dioxide 27 (21-32) mEq/L Anion Gap 13.2 (5-15) BUN 5 L (7-18) mg/dL Creatinine 0.8 (0.55-1.02) mg/dL Est Cr Clr Drug Dosing 102.78 mL/min Estimated GFR (MDRD) > 60 (>60) mL/min BUN/Creatinine Ratio 6.3 L (14-18) Glucose 130 H (74-106) mg/dL Lactic Acid (0.4-2.0) mmol/L Calcium 7.0 L (8.5-10.1) mg/dL Phosphorus 3.7 (2.6-4.7) mg/dL Magnesium 1.8 (1.8-2.4) mg/dl Total Bilirubin 1.1 H (0.2-1.0) mg/dL AST 16 (15-37) U/L ALT 21 (14-59) U/L Alkaline Phosphatase 86 (46-116) U/L C-Reactive Protein (<1.0) mg/dL Total Protein 5.3 L (6.4-8.2) g/dl Albumin 1.8 L (3.4-5.0) g/dl Globulin 3.5 gm/dL Albumin/Globulin Ratio 0.5 L (1-2) HCG, Qual (NEGATIVE) Ur Random Creatinine (30.0-125.0) mg/dL U Random Total Protein (0.0-11.8) mg/dL Ur Random Sodium (40-220) mEq/L SARS Virus RNA (PCR) (NEGATIVE) Jet Results Last 24 Hours: Microbiology 12/11/19 14:20 Anaerobic Blood Culture - Preliminary Blood - Venous Gram Positive [place] Med Orders - Current: Current Medications Acetaminophen (Tylenol) 650 mg PO Q4H PRN PRN Reason: Pain (Mild 1-3)/fever Last Admin: 12/12/19 04:40 Dose: 650 mg Acyclovir (Zovirax) 400 mg PO TID [facility] Last Admin: 12/11/19 21:54 Dose: 400 mg Albuterol (Proventil Neb Soln) 2.5 mg NEB Q4HRRT PRN PRN Reason: Shortness of Breath Last Admin: 12/12/19 06:34 Dose: 2.5 mg Benzocaine/Menthol (Cepacol Sore Throat) 1 lozenge MUCMEM Q2H PRN PRN Reason: Throat pain Promethazine HCl 12.5 mg/ (Sodium Chloride) 50.5 mls @ 100 mls/hr IV Q6H PRN PRN Reason: Nausea/Vomiting Ampicillin Sodium/Sulbactam (Sodium 3 gm/ Sodium Chloride) 100 mls @ 200 mls/ hr IV Q6H [facility] Last Admin: 12/12/19 04:38 Dose: 200 mls/hr Ketorolac Tromethamine (Toradol) 30 mg IV Q6H PRN PRN Reason: Pain (moderate 4-6) Last Admin: 12/11/19 14:10 Dose: 30 mg Magnesium Oxide (Magnesium Oxide) 400 mg PO BID [facility] Stop: 12/12/19 21:01 Vortioxetine Hydrobromide [ Trintellix] 10 Mg Pt 's Own 0 mg PO DAILY [facility] Oxycodone HCl (Oxycodone) 5 mg PO Q4H PRN PRN Reason: Pain (moderate 4-6) Last Admin: 12/12/19 04:39 Dose: 5 mg Sodium Chloride (Saline Flush) 10 ml FLUSH ONETIME PRN PRN Reason: IV FLUSH Last Admin: 12/11/19 15:16 Dose: 10 ml Spironolactone (Aldactone) 100 mg PO DAILY [facility] Topiramate (Topamax) 25 mg PO DAILY [facility] Discontinued Medications Furosemide (Lasix) 20 mg IVPUSH NOW ONE Stop: 12/12/19 06:23 Last Admin: 12/12/19 06:48 Dose: 20 mg Hydromorphone HCl (Dilaudid) 1 mg IVPUSH ONETIME ONE Stop: 12/11/19 07:50 Last Admin: 12/11/19 07:55 Dose: 1 mg Sodium Chloride (Normal Saline) 1,000 mls @ 999 mls/hr IV ONETIME ONE Stop: 12/11/19 08:14 Last Admin: 12/11/19 07:32 Dose: 999 mls/hr Sodium Chloride (Normal Saline) 1,000 mls @ 1,000 mls/hr IV ONETIME ONE Stop: 12/11/19 09:33 Last Admin: 12/11/19 08:48 Dose: 1,000 mls/hr Potassium Chloride 10 meq/ (Premix) 100 mls @ 100 mls/hr IV Q1H [facility] Stop: 12/11/19 12:44 Last Admin: 12/11/19 12:11 Dose: 100 mls/hr Magnesium Sulfate/Dextrose 1 (gm/ Premix) 100 mls @ 100 mls/hr IV ONETIME ONE Stop: 12/11/19 10:17 Last Admin: 12/11/19 09:31 Dose: 100 mls/hr Magnesium Sulfate/Dextrose 1 (gm/ Premix) 100 mls @ 100 mls/hr IV ONETIME ONE Stop: 12/11/19 11:29 Last Admin: 12/11/19 10:50 Dose: 100 mls/hr Potassium Phosphate 30 mmole/ (Sodium Chloride) 510 mls @ 102 mls/hr IV ONETIME ONE Stop: 12/11/19 18:59 Last Infusion: 12/11/19 17:23 Dose: 65 mls/hr Sodium Phosphate 30 mmole/ (Sodium Chloride) 260 mls @ 130 mls/hr IV ONETIME ONE Stop: 12/11/19 13:29 Last Infusion: 12/11/19 13:58 Dose: 100 mls/hr Lactated Ringer's (Ringers, Lactated) 1,000 mls @ 100 mls/hr IV ASDIRECTED [facility] Last Infusion: 12/11/19 13:49 Dose: 100 mls/hr Lactated Ringer's (Ringers, Lactated) 1,000 mls @ 125 mls/hr IV ASDIRECTED [facility] Stop: 12/11/19 23:30 Lactated Ringer's (Ringers, Lactated) 1,000 mls @ 150 mls/hr IV ASDIRECTED [facility] Last Admin: 12/12/19 04:38 Dose: 150 mls/hr Iopamidol (Isovue-300 (61%)) 100 ml IVPUSH ONETIME ONE Stop: 12/11/19 14:54 Last Admin: 12/11/19 15:16 Dose: 100 ml Ketorolac Tromethamine (Toradol) 30 mg IVPUSH ONETIME ONE Stop: 12/11/19 07:50 Last Admin: 12/11/19 07:56 Dose: 30 mg Acyclovir 400 Mg (Pt's Own Medication) 0 mg PO TID [facility] Ondansetron HCl (Zofran) 4 mg IVPUSH ONETIME ONE Stop: 12/11/19 07:15 Last Admin: 12/11/19 07:32 Dose: 4 mg Potassium Chloride (Klor-Con M20) 40 meq PO BEDTIME [facility] Stop: 12/11/19 21:01 Last Admin: 12/11/19 21:53 Dose: 40 meq Valacyclovir HCl (Valtrex) 400 mg PO TID PRN PRN Reason: breakouts - Exam Quality Assessment: Supplemental Oxygen, DVT Prophylaxis General: Alert, Oriented, Cooperative, No Acute Distress HEENT: Pupils Equal, Pupils Reactive, Mucous Membr. Moist/[place] Neck: Supple, Trachea Midline Lungs: Clear to Auscultation, Normal Respiratory Effort Cardiovascular: Regular Rate, Regular Rhythm GI/Abdominal Exam: Normal Bowel Sounds, Soft, Non-Tender, No Distention, No Abnormal Bruit (Female) Exam: Deferred Back Exam: Normal Inspection, Full Range of Motion Extremities: Normal Inspection, Normal Range of Motion, Non-Tender, No Pedal Edema, Normal Capillary Refill Skin: Warm, Dry, Intact Neurological: No New Focal Deficit Psy/Mental Status: Alert, Normal Affect, Normal Mood Sepsis Event Note - Evaluation Sepsis Screening Result: No Definite Risk - Focused Exam Vital Signs: Vital Signs Temp Pulse Resp BP Pulse Ox Pulse Ox 12/12/19 06:28 96 12/12/19 04:41 98.1 F 93 18 110/62 92 L 12/12/19 01:05 98.8 F 12/11/19 23:17 99.7 F 12/11/19 21:51 100.4 F 108 H 18 107/54 L 94 L 12/11/19 19:36 93 L Date Exam was Performed: 12/12/19 Time Exam was Performed: 10:52 - Problem List & Annotations (1) Generalized weakness SNOMED Code(s): 34987753 Code(s): R53.1 - WEAKNESS Status: Acute Priority: High Current Visit: Yes (2) Diarrhea SNOMED Code(s): 25888605 Code(s): R19.7 - DIARRHEA, UNSPECIFIED Status: Resolved Priority: High Current Visit: Yes Qualifiers: Diarrhea type: unspecified type Qualified Code(s): R19.7 - Diarrhea, unspecified (3) Hypokalemia SNOMED Code(s): 77506176 Code(s): E87.6 - HYPOKALEMIA Status: Acute Priority: High Current Visit : Yes (4) Hypomagnesemia SNOMED Code(s): 618336475 Code(s): E83.42 - HYPOMAGNESEMIA Status: Acute Priority: High Current Visit: Yes (5) Nausea & vomiting SNOMED Code(s): 84697747 Code(s): R11.2 - NAUSEA WITH VOMITING, UNSPECIFIED Status: Resolved Priority: High Current Visit: Yes Qualifiers: Vomiting type: unspecified Vomiting Intractability: unspecified Qualified Code(s): R11.2 - Nausea with vomiting, unspecified (6) Tonsillitis with exudate SNOMED Code(s): 22261005, 912355587 Code(s): J03.90 - ACUTE TONSILLITIS, UNSPECIFIED Status: Acute Priority: High Current Visit: Yes (7) History of TIA (transient ischemic attack) SNOMED Code(s): 760974398 Code(s): Z86.73 - PRSNL HX OF TIA (TIA), AND CEREB INFRC W/O RESID DEFICITS Status: Chronic Priority: Low Current Visit: No (8) History of herpes simplex type 2 infection SNOMED Code(s): 967121793 Code(s): Z86.19 - PERSONAL HISTORY OF OTHER INFECTIOUS AND PARASITIC DISEASES Status: Chronic Priority: Low Current Visit: No (9) Migraines SNOMED Code(s): 60115910 Code(s): G43.909 - MIGRAINE, UNSP, NOT INTRACTABLE, WITHOUT STATUS MIGRAINOSUS Status: Chronic Priority: Low Current Visit: No Qualifiers: Migraine type: unspecified Status migrainosus presence: without status migrainosus Intractability: not intractable Qualified Code(s): G43.909 - Migraine, unspecified, not intractable, without status migrainosus (10) Anxiety SNOMED Code(s): 98926434 Code(s): F41.9 - ANXIETY DISORDER, UNSPECIFIED Status: Chronic Priority: Low Current Visit: No (11) Depression SNOMED Code(s): 66920598 Code(s): F32.9 - MAJOR DEPRESSIVE DISORDER, SINGLE EPISODE, UNSPECIFIED Status: Chronic Priority: Low Current Visit: No Qualifiers: Depression Type: other depression Qualified Code(s): F32.89 - Other specified depressive episodes (12) Group C streptococcal infection SNOMED Code(s): 317454961 Code(s): A49.1 - STREPTOCOCCAL INFECTION, UNSPECIFIED SITE Status: Acute Priority: High Current Visit: Yes (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 SNOMED Code(s): 149156177 Code(s): E83.39 - OTHER DISORDERS OF PHOSPHORUS METABOLISM Status: Resolved Priority: High Current Visit: Yes (14) PCOS (polycystic ovarian syndrome) SNOMED Code(s): 752012114 Code(s): E28.2 - POLYCYSTIC OVARIAN SYNDROME Status: Chronic Priority: Low Current Visit: No (15) Bacteremia SNOMED Code(s): 7011814 Code(s): R78.81 - BACTEREMIA Status: Acute Priority: High Current Visit : Yes (16) Fever SNOMED Code(s): 932016637 Code(s): R50.9 - FEVER, UNSPECIFIED Status: Resolved Priority: High Current Visit: Yes (17) Epigastric pain SNOMED Code(s): 81422229 Code(s): R10.13 - EPIGASTRIC PAIN Status: Acute Priority: Medium Current Visit: Yes (18) Hypoxia SNOMED Code(s): 894028210 Code(s): R09.02 - HYPOXEMIA Status: Acute Priority: High Current Visit : Yes - Problem List Review Problem List Initiated/Reviewed/Updated: Yes - My Orders Last 24 Hours: My Active Orders 12/11/19 07:26 PROCALCITONIN [REF] Stat 12/11/19 09:34 Oxygen Therapy [RC] PRN VTE/DVT Education [RC] DAILY Vital Signs [RC] Q4HR Acetaminophen [Tylenol] 650 mg PO Q4H PRN Ketorolac [Toradol] 30 mg IV Q6H PRN Resuscitation Status Routine 12/11/19 09:36 Pulse Oximetry [RC] PRN 12/11/19 10:48 Benzocaine/Cetylpyrd/Menthol [Cepacol Sore Throat] 1 lozenge MUCMEM Q2H PRN 12/11/19 12:11 Antiembolic Devices [RC] QSHIFT SERGE Hose [Antiembolic Hose] [OM.PC] Routine 12/11/19 12:44 Promethazine [Phenergan] 12.5 mg Sodium Chloride 0.9% [Normal Saline] 50 ml IV Q6H 12/11/19 15:00 Acyclovir [Zovirax] 400 mg PO TID 12/11/19 Breakfast Regular Diet [DIET] 12/12/19 07:23 Patient Status [ADT] Routine 12/12/19 09:00 Magnesium Oxide 400 mg PO BID Spironolactone [Aldactone] 100 mg PO DAILY Topiramate [Topamax] 25 mg PO DAILY Vortioxetine Hydrobromide [Trintellix] 0 mg PO DAILY 12/13/19 05:11 CBC WITH AUTO DIFF [HEME] AM COMPREHENSIVE METABOLIC PN,CMP [CHEM] AM MAGNESIUM [CHEM] AM - Plan Plan:: Hypokalemia Tonsillitis with exudate Generalized weakness Bacteremia Fever Hypoxia 2/2 fluid overload Epigastric pain Reports symptoms started with throat pain - seen in COVID clinic on and diagnosed with Group C Strep Started on azithromycin - [place] negative Returned to ED on due to ongoing symptoms - given IM PCN injection CT scan on 12/08/19 showed no abscess Reports continued throat pain, nausea, vomiting, diarrhea, weakness Erythematous and edematous right tonsil noted on admission No clinical signs of abscess No leukocytosis, CRP 25.0 (down from 36.7) on admission Potassium 2.2 in ED-->3.4 Magnesium 1.4 in ED-->1.8 Phosphorous 1.0-->3.7 hCG negative Intal sepsis screen negative On floor patient developed fever, Lactic acid 5.6; Repeat lactic acid 1.9; Started on Unasyn then No vomiting or diarrhea since on the floor Blood culture growing gram positive cocci Repeat CT scan shows improvement of tonsillitis, no abscess COVID-19 scree nnegative PLAN - Supplement electrolytes as needed - Discontinue Unasyn and start Vancomycin - Tylenol for fevers/pain; Tylenol 3 for moderate pain and IVP morphine for breakthrough pain - Discontinue IV fluids - 20mg IVP x1 lasix for fluid overload - Cepacol throat lozenges - Monitor labs - IV fluids as ordered - Repeat BC after 48 hours - Obtain echo to r/o vegetation - H. Pylori stool test ordered PCOS On home spironolactone and metformin PLAN - Hold metformin - Continue spironolactone History of herpes simplex type 2 infection On home acyclovir and PRN valacyclovir PLAN - Continue acyclovir Migraines No current symptoms PLAN - Monitor Anxiety Depression On home vortioxetine PLAN Continue home vortioxetine History of TIA (transient ischemic attack) No symptoms at this time PLAN - Monitor S/P Hypomagnesemia S/P Hypophosphatemia S/P Nausea & vomiting S/P Diarrhea S/P Sepsis DVT prophylaxis: SERGE sesay GI prophylaxis: Not indicated PCP: Dr. Rangel Code status: Full Code Disposition: Due to fever, lactic acidosis, and bacteremia patient will be upgraded to inpatient. Telemetry discontinued as patient is no longer believed to be septic and hypokalemia has improved.
[2019-12-12] MEDS: Potassium Chloride 20 MEQ Tab.ER PO SCH ×2 (08:53→21:41)
[2019-12-12] MEDS: Spironolactone 100 MG Tab PO SCH (08:53)
[2019-12-12] MEDS: Acyclovir 200 MG Cap PO SCH ×3 (08:54→21:40)
[2019-12-12] MEDS: Magnesium Oxide 400 MG Tab PO SCH ×2 (08:55→21:39)
[2019-12-12] MEDS ORDERED: Topiramate 25 MG Tab PO SCH ×2 (09:00→10:41)
[2019-12-12] MEDS ORDERED: Vancomycin 1 GM, Vancomycin 250 MG in Sodium Chloride 0.9% 250 ML IV ONE (10:30)
[2019-12-12] MEDS ORDERED: Vancomycin 1.75 GM in Sodium Chloride 0.9% 500 ML IV ONE (11:00)
[2019-12-12] MEDS: Topiramate 25 MG Tab PO SCH (11:38)
[2019-12-12] MEDS: VORTIOXETINE HYDROBROMIDE 10 MG PO SCH (12:47)
[2019-12-12] MEDS: Acetaminophen/Codeine 300-30 MG Tab PO PRN ×2 (14:25→21:40)
[2019-12-12] MEDS: Morphine 2 MG/ML Syringe IVPUSH PRN (17:00)
[2019-12-12] MEDS: Vancomycin 1 GM, Vancomycin 250 MG in Sodium Chloride 0.9% 250 ML IV SCH (19:05)
[2019-12-13] MEDS: Morphine 2 MG/ML Syringe IVPUSH PRN (00:24)
[2019-12-13] MEDS: Vancomycin 1 GM, Vancomycin 250 MG in Sodium Chloride 0.9% 250 ML IV SCH (03:22)
[2019-12-13] MEDS ORDERED: Alum Hydrox/Mag Hydrox/Simeth 30 ML, Lidocaine 2% 15 ML PO ONE ×2 (08:13)
--- NOTE | 2019-12-13 08:14 | PCM.PN ---
- General Info Date of Service: 12/13/19 Subjective Update: States she feels better today Nausea and diarrhea has resolved No pain medications since last night and states pain is better Last BM yesterday Eating OK Still very tired Functional Status: Reports: Pain Controlled, Tolerating Diet, Ambulating, Urinating, Incentive Spirometry, Other (Acapella ). Denies: New Symptoms - Review of Systems General: Reports: No Symptoms, Weakness, Fatigue. Denies: Fever, Malaise, Chills HEENT: Reports: No Symptoms. Denies: Headaches, Sore Throat Pulmonary: Reports: Shortness of Breath, Pleuritic Chest Pain, Cough, Sputum. Denies: Wheezing Cardiovascular: Reports: No Symptoms. Denies: Chest Pain, Palpitations, Dyspnea on Exertion, Edema, Lightheadedness Gastrointestinal: Reports: No Symptoms. Denies: Abdominal Pain, Constipation, Diarrhea, Nausea, Vomiting Genitourinary: Reports: No Symptoms. Denies: Pain Musculoskeletal: Reports: No Symptoms Skin: Reports: No Symptoms. Denies: Cyanosis Neurological: Reports: No Symptoms, Weakness. Denies: Confusion, Pre-Existing Deficit, Trouble Speaking, Difficulty Walking, Gait Disturbance Psychiatric: Reports: No Symptoms - Patient Data Vitals - Most Recent: Last Vital Signs Temp 97.9 F 12/13/19 03:23 Pulse 97 12/13/19 03:23 Resp 14 12/13/19 03:23 BP 108/59 L 12/13/19 03:23 Pulse Ox 92 L 12/13/19 03:23 Weight - Most Recent: 254 lb 6.4 oz I&O - Last 24 Hours: Intake & Output 12/12/19 12/13/19 12/13/19 22:59 06:59 14:59 Intake Total 2540 1390 Output Total 6100 3000 Balance -3560 -1610 Lab Results Last 24 Hours: Laboratory Results - last 24 hr 12/13/19 Range/Units 06:00 Sodium 140 (136-145) mEq/L Potassium 3.7 (3.5-5.1) mEq/L Chloride 104 (98-107) mEq/L Carbon Dioxide 28 (21-32) mEq/L Anion Gap 11.7 (5-15) BUN 4 L (7-18) mg/dL Creatinine 0.6 (0.55-1.02) mg/dL Est Cr Clr Drug Dosing 137.04 mL/min Estimated GFR (MDRD) > 60 (>60) mL/min BUN/Creatinine Ratio 6.7 L (14-18) Glucose 105 (74-106) mg/dL Calcium 7.5 L (8.5-10.1) mg/dL Magnesium 2.0 (1.8-2.4) mg/dl Total Bilirubin 0.6 (0.2-1.0) mg/dL AST 19 (15-37) U/L ALT 22 (14-59) U/L Alkaline Phosphatase 94 (46-116) U/L Total Protein 5.2 L (6.4-8.2) g/dl Albumin 2.0 L (3.4-5.0) g/dl Globulin 3.2 gm/dL Albumin/Globulin Ratio 0.6 L (1-2) Jet Results Last 24 Hours: Microbiology 12/11/19 14:40 Aerobic Blood Culture - Preliminary Blood - Venous - Lab Draw Gram Positive Cocci Anaerobic Blood Culture - Preliminary Gram Positive Cocci In Chains 12/11/19 14:20 Aerobic Blood Culture - Preliminary Blood - Venous Gram Positive Cocci In Chains Anaerobic Blood Culture - Preliminary Gram Positive Cocci 12/12/19 13:17 Helicobacter pylori Antigen - Final Stool / Feces NEGATIVE H. PYLORI AG REFERENCE RANGE: NEGATIVE Med Orders - Current: Current Medications Acetaminophen (Tylenol) 650 mg PO Q4H PRN PRN Reason: Pain (Mild 1-3)/fever Last Admin: 12/12/19 04:40 Dose: 650 mg Acetaminophen/Codeine Phosphate (Tylenol With Codeine No.3 300mg/30mg) 1 tab PO Q4H PRN PRN Reason: Pain (moderate 4-6) Last Admin: 12/12/19 21:40 Dose: 1 tab Acyclovir (Zovirax) 400 mg PO TID STEFANO Last Admin: 12/12/19 21:40 Dose: 400 mg Albuterol (Proventil Neb Soln) 2.5 mg NEB Q4HRRT PRN PRN Reason: Shortness of Breath Last Admin: 12/12/19 22:55 Dose: 2.5 mg Benzocaine/Menthol (Cepacol Sore Throat) 1 lozenge MUCMEM Q2H PRN PRN Reason: Throat pain Al Hydroxide/Mg Hydroxide 30 (ml/ Lidocaine HCl 15 ml) 0 ml PO ONETIME ONE Stop: 12/13/19 08:14 Promethazine HCl 12.5 mg/ (Sodium Chloride) 50.5 mls @ 100 mls/hr IV Q6H PRN PRN Reason: Nausea/Vomiting Vancomycin HCl 1 gm/Vancomycin HCl 250 mg/ Sodium Chloride 250 mls @ 166.667 mls/hr IV Q8H [facility] Last Admin: 12/13/19 03:22 Dose: 166.667 mls/hr Ketorolac Tromethamine (Toradol) 30 mg IV Q6H PRN PRN Reason: Pain (moderate 4-6) Last Admin: 12/11/19 14:10 Dose: 30 mg Morphine Sulfate (Morphine) 2 mg IVPUSH Q4H PRN PRN Reason: Breakthrough Pain Last Admin: 12/13/19 00:24 Dose: 2 mg Vortioxetine Hydrobromide [ Trintellix] 10 Mg Pt 's Own 0 mg PO DAILY [facility] Last Admin: 12/12/19 12:47 Dose: Not Given Sodium Chloride (Saline Flush) 10 ml FLUSH ONETIME PRN PRN Reason: IV FLUSH Last Admin: 12/11/19 15:16 Dose: 10 ml Spironolactone (Aldactone) 100 mg PO DAILY [facility] Last Admin: 12/12/19 08:53 Dose: 100 mg Topiramate (Topamax) 25 mg PO DAILY [facility] Last Admin: 12/12/19 11:38 Dose: 25 mg Vancomycin HCl (Pharmacy To Dose - Vancomycin) 1 dose .XX ASDIRECTED PRN PRN Reason: RX TO DOSE VANCO Discontinued Medications Furosemide (Lasix) 20 mg IVPUSH NOW ONE Stop: 12/12/19 06:23 Last Admin: 12/12/19 06:48 Dose: 20 mg Hydromorphone HCl (Dilaudid) 1 mg IVPUSH ONETIME ONE Stop: 12/11/19 07:50 Last Admin: 12/11/19 07:55 Dose: 1 mg Sodium Chloride (Normal Saline) 1,000 mls @ 999 mls/hr IV ONETIME ONE Stop: 12/11/19 08:14 Last Admin: 12/11/19 07:32 Dose: 999 mls/hr Sodium Chloride (Normal Saline) 1,000 mls @ 1,000 mls/hr IV ONETIME ONE Stop: 12/11/19 09:33 Last Admin: 12/11/19 08:48 Dose: 1,000 mls/hr Potassium Chloride 10 meq/ (Premix) 100 mls @ 100 mls/hr IV Q1H [facility] Stop: 12/11/19 12:44 Last Admin: 12/11/19 12:11 Dose: 100 mls/hr Magnesium Sulfate/Dextrose 1 (gm/ Premix) 100 mls @ 100 mls/hr IV ONETIME ONE Stop: 12/11/19 10:17 Last Admin: 12/11/19 09:31 Dose: 100 mls/hr Magnesium Sulfate/Dextrose 1 (gm/ Premix) 100 mls @ 100 mls/hr IV ONETIME ONE Stop: 12/11/19 11:29 Last Admin: 12/11/19 10:50 Dose: 100 mls/hr Potassium Phosphate 30 mmole/ (Sodium Chloride) 510 mls @ 102 mls/hr IV ONETIME ONE Stop: 12/11/19 18:59 Last Infusion: 12/11/19 17:23 Dose: 65 mls/hr Sodium Phosphate 30 mmole/ (Sodium Chloride) 260 mls @ 130 mls/hr IV ONETIME ONE Stop: 12/11/19 13:29 Last Infusion: 12/11/19 13:58 Dose: 100 mls/hr Lactated Ringer's (Ringers, Lactated) 1,000 mls @ 100 mls/hr IV ASDIRECTED [facility] Last Infusion: 12/11/19 13:49 Dose: 100 mls/hr Lactated Ringer's (Ringers, Lactated) 1,000 mls @ 125 mls/hr IV ASDIRECTED [facility] Stop: 12/11/19 23:30 Ampicillin Sodium/Sulbactam (Sodium 3 gm/ Sodium Chloride) 100 mls @ 200 mls/ hr IV Q6H [facility] Last Admin: 12/12/19 11:03 Dose: Not Given Lactated Ringer's (Ringers, Lactated) 1,000 mls @ 150 mls/hr IV ASDIRECTED [facility] Last Admin: 12/12/19 04:38 Dose: 150 mls/hr Vancomycin HCl 1.75 gm/ Sodium (Chloride) 500 mls @ 250 mls/hr IV ONETIME ONE Stop: 12/12/19 12:59 Last Admin: 12/12/19 10:51 Dose: 250 mls/hr Iopamidol (Isovue-300 (61%)) 100 ml IVPUSH ONETIME ONE Stop: 12/11/19 14:54 Last Admin: 12/11/19 15:16 Dose: 100 ml Ketorolac Tromethamine (Toradol) 30 mg IVPUSH ONETIME ONE Stop: 12/11/19 07:50 Last Admin: 12/11/19 07:56 Dose: 30 mg Magnesium Oxide (Magnesium Oxide) 400 mg PO BID [facility]ANO Stop: 12/12/19 21:01 Last Admin: 12/12/19 21:39 Dose: 400 mg Acyclovir 400 Mg (Pt's Own Medication) 0 mg PO TID [facility] Ondansetron HCl (Zofran) 4 mg IVPUSH ONETIME ONE Stop: 12/11/19 07:15 Last Admin: 12/11/19 07:32 Dose: 4 mg Oxycodone HCl (Oxycodone) 5 mg PO Q4H PRN PRN Reason: Pain (moderate 4-6) Last Admin: 12/12/19 09:01 Dose: 5 mg Potassium Chloride (Klor-Con M20) 40 meq PO BEDTIME [facility] Stop: 12/11/19 21:01 Last Admin: 12/11/19 21:53 Dose: 40 meq Potassium Chloride (Klor-Con M20) 40 meq PO BID [facility] Stop: 12/12/19 21:01 Last Admin: 12/12/19 21:41 Dose: 40 meq Topiramate (Topamax) 25 mg PO DAILY [facility] Last Admin: 12/12/19 11:47 Dose: Not Given Topiramate (Topamax) 25 mg PO DAILY [facility] Valacyclovir HCl (Valtrex) 400 mg PO TID PRN PRN Reason: breakouts - Exam Quality Assessment: DVT Prophylaxis General: Alert, Oriented, Cooperative, No Acute Distress HEENT: Pupils Equal, Pupils Reactive, Mucous Membr. Moist/[place] Neck: Supple, Trachea Midline Lungs: Normal Respiratory Effort, Decreased Breath Sounds. No: Crackles, Rhonchi, Wheezing Cardiovascular: Regular Rate, Regular Rhythm GI/Abdominal Exam: Normal Bowel Sounds, Soft, Non-Tender, No Distention (Female) Exam: Deferred Back Exam: Normal Inspection, Full Range of Motion Extremities: Normal Inspection, Normal Range of Motion, Non-Tender, No Pedal Edema, Normal Capillary Refill Skin: Warm, Dry, Intact Neurological: No New Focal Deficit Psy/Mental Status: Alert Sepsis Event Note - Evaluation Sepsis Screening Result: No Definite Risk - Focused Exam Vital Signs: Vital Signs Temp Pulse Resp BP Pulse Ox 12/13/19 03:23 97.9 F 97 14 108/59 L 92 L 12/13/19 00:14 99.9 F 102 H 18 104/56 L 94 L 12/12/19 21:33 100.6 F 94 14 122/68 94 L Date Exam was Performed: 12/13/19 Time Exam was Performed: 11:34 - Problem List & Annotations (1) Generalized weakness SNOMED Code(s): 68702492 Code(s): R53.1 - WEAKNESS Status: Acute Priority: High Current Visit: Yes (2) Diarrhea SNOMED Code(s): 70624331 Code(s): R19.7 - DIARRHEA, UNSPECIFIED Status: Resolved Priority: High Current Visit: Yes Qualifiers: Diarrhea type: unspecified type Qualified Code(s): R19.7 - Diarrhea, unspecified (3) Hypokalemia SNOMED Code(s): 66329046 Code(s): E87.6 - HYPOKALEMIA Status: Acute Priority: High Current Visit : Yes (4) Hypomagnesemia SNOMED Code(s): 642158979 Code(s): E83.42 - HYPOMAGNESEMIA Status: Acute Priority: High Current Visit: Yes (5) Nausea & vomiting SNOMED Code(s): 68273542 Code(s): R11.2 - NAUSEA WITH VOMITING, UNSPECIFIED Status: Resolved Priority: High Current Visit: Yes Qualifiers: Vomiting type: unspecified Vomiting Intractability: unspecified Qualified Code(s): R11.2 - Nausea with vomiting, unspecified (6) Tonsillitis with exudate SNOMED Code(s): 98424350, 169201505 Code(s): J03.90 - ACUTE TONSILLITIS, UNSPECIFIED Status: Acute Priority: High Current Visit: Yes (7) History of TIA (transient ischemic attack) SNOMED Code(s): 752750179 Code(s): Z86.73 - PRSNL HX OF TIA (TIA), AND CEREB INFRC W/O RESID DEFICITS Status: Chronic Priority: Low Current Visit: No (8) History of herpes simplex type 2 infection SNOMED Code(s): 880646260 Code(s): Z86.19 - PERSONAL HISTORY OF OTHER INFECTIOUS AND PARASITIC DISEASES Status: Chronic Priority: Low Current Visit: No (9) Migraines SNOMED Code(s): 19575546 Code(s): G43.909 - MIGRAINE, UNSP, NOT INTRACTABLE, WITHOUT STATUS MIGRAINOSUS Status: Chronic Priority: Low Current Visit: No Qualifiers: Migraine type: unspecified Status migrainosus presence: without status migrainosus Intractability: not intractable Qualified Code(s): G43.909 - Migraine, unspecified, not intractable, without status migrainosus (10) Anxiety SNOMED Code(s): 22128613 Code(s): F41.9 - ANXIETY DISORDER, UNSPECIFIED Status: Chronic Priority: Low Current Visit: No (11) Depression SNOMED Code(s): 82242957 Code(s): F32.9 - MAJOR DEPRESSIVE DISORDER, SINGLE EPISODE, UNSPECIFIED Status: Chronic Priority: Low Current Visit: No Qualifiers: Depression Type: other depression Qualified Code(s): F32.89 - Other specified depressive episodes (12) Group C streptococcal infection SNOMED Code(s): 198611642 Code(s): A49.1 - STREPTOCOCCAL INFECTION, UNSPECIFIED SITE Status: Acute Priority: High Current Visit: Yes (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 SNOMED Code(s): 005308155 Code(s): E83.39 - OTHER DISORDERS OF PHOSPHORUS METABOLISM Status: Resolved Priority: High Current Visit: Yes (14) PCOS (polycystic ovarian syndrome) SNOMED Code(s): 102161795 Code(s): E28.2 - POLYCYSTIC OVARIAN SYNDROME Status: Chronic Priority: Low Current Visit: No (15) Bacteremia SNOMED Code(s): 6660973 Code(s): R78.81 - BACTEREMIA Status: Acute Priority: High Current Visit : Yes (16) Fever SNOMED Code(s): 371191012 Code(s): R50.9 - FEVER, UNSPECIFIED Status: Resolved Priority: High Current Visit: Yes (17) Epigastric pain SNOMED Code(s): 14011412 Code(s): R10.13 - EPIGASTRIC PAIN Status: Acute Priority: Medium Current Visit: Yes (18) Hypoxia SNOMED Code(s): 327508020 Code(s): R09.02 - HYPOXEMIA Status: Acute Priority: High Current Visit : Yes - Problem List Review Problem List Initiated/Reviewed/Updated: Yes - My Orders Last 24 Hours: My Active Orders 12/12/19 07:23 Patient Status [ADT] Routine 12/12/19 09:00 Spironolactone [Aldactone] 100 mg PO DAILY Vortioxetine Hydrobromide [Trintellix] 0 mg PO DAILY 12/12/19 10:15 Pharmacy to Dose - Vancomycin 1 dose .XX ASDIRECTED PRN 12/12/19 10:51 Acetaminophen/Codeine [Tylenol with Codeine No.3 300MG/30MG] 1 tab PO Q4H PRN 12/12/19 10:52 Morphine 2 mg IVPUSH Q4H PRN 12/12/19 10:53 RT Incentive Spirometry [RC] ASDIRECTED 12/12/19 11:15 Topiramate [Topamax] 25 mg PO DAILY 12/13/19 06:00 CBC WITH AUTO DIFF [HEME] AM PROCALCITONIN [REF] AM 12/13/19 08:00 CXR [Chest 2V] [CR] Routine 12/13/19 08:13 Alum Hydrox/Mag Hydrox/Simeth [Mag-Al Plus] 30 ml Lidocaine 2% [Xylocaine 2% Viscous] 15 ml PO ONETIME 12/13/19 14:00 CULTURE BLOOD [BC] Routine CULTURE BLOOD [BC] Routine Blood Culture x2 Reflex Set [OM.PC] ASDIRECTED 12/14/19 05:11 CBC WITH AUTO DIFF [HEME] AM COMPREHENSIVE METABOLIC PN,CMP [CHEM] AM MAGNESIUM [CHEM] AM PHOSPHORUS [CHEM] AM 12/15/19 05:11 PROCALCITONIN [REF] Routine - Plan Plan:: Tonsillitis with exudate Generalized weakness Bacteremia Fever Hypoxia Epigastric pain Pneumonia Reports symptoms started with throat pain - seen in COVID clinic on and diagnosed with Group C Strep Started on azithromycin - [place] negative Returned to ED on due to ongoing symptoms - given IM PCN injection CT scan on 12/08/19 showed no abscess Reports continued throat pain, nausea, vomiting, diarrhea, weakness Erythematous and edematous right tonsil noted on admission No clinical signs of abscess No leukocytosis, CRP 25.0 (down from 36.7) on admission hCG negative Intal sepsis screen negative On floor patient developed fever, Lactic acid 5.6; Repeat lactic acid 1.9; Started on Unasyn then Blood culture growing group C strep 4/4 bottles, awaiting sensitivities Repeat CT scan shows improvement of tonsillitis, no abscess COVID-19 screen negative Repeat CXR shows bilateral infiltrates - worse on right Negative H. Pylori Temperature 97.9-100.6 past 24 hrs; Tmax 105.3 on 12/10 Echo on 12/12/19 shows EF of 55-60%, No valvular disease, No vegetation PLAN - Supplement electrolytes as needed - Continue vancomycin and start Levaquin and Zosyn - Tylenol for fevers/pain; Tylenol 3 for moderate pain and IVP morphine for breakthrough pain - Cepacol throat lozenges - Monitor labs - Repeat BC today - Start famotidine as GI cocktail helped epigastric pain. - IS/Acapella/RT - O2 as needed - MRSA screen PCOS On home spironolactone and metformin PLAN - Hold metformin - Continue spironolactone History of herpes simplex type 2 infection On home acyclovir and PRN valacyclovir PLAN - Continue acyclovir Migraines No current symptoms PLAN - Monitor Anxiety Depression On home vortioxetine PLAN Continue home vortioxetine History of TIA (transient ischemic attack) No symptoms at this time PLAN - Monitor S/P Hypomagnesemia S/P Hypophosphatemia S/P Nausea & vomiting S/P Diarrhea S/P Sepsis S/P Hypokalemia DVT prophylaxis: SERGE sesay GI prophylaxis: Pepcid PCP: Dr. Rangel Code status: Full Code Disposition: Patient will continue to be admitted to M/S/P due to bacteremia and PNA. Antibiotic coverage expanded. LOS >96 hrs pending repeat blood cultures and PNA.
--- NOTE | 2019-12-13 08:24 | CR ---
Chest: 2 views of the chest were obtained. Comparison: Prior chest x-ray of 12/11/19. Increased density within both lung bases, worse on the right side. Upper lungs are clear. Heart size and mediastinum are normal. Bony structures are unremarkable. Impression: 1. Increased density within both lung bases, worse on the right side. These findings are an interval change from prior study representing either change from aspiration or pneumonia. Diagnostic code #3 This report was dictated in MDT
[2019-12-13] MEDS: Acyclovir 200 MG Cap PO SCH ×3 (09:35→20:00)
[2019-12-13] MEDS: Spironolactone 100 MG Tab PO SCH (09:35)
[2019-12-13] MEDS: Topiramate 25 MG Tab PO SCH (09:35)
[2019-12-13] MEDS: VORTIOXETINE HYDROBROMIDE 10 MG PO SCH (09:46)
[2019-12-13] MEDS ORDERED: Bismuth Subsalicylate 262 MG/15 ML Susp 236 ML Bottle PO PRN (10:01)
[2019-12-13] MEDS: Levofloxacin/Dextrose 5%-Water 750 MG in Premix Bag 1 BAG IV SCH (10:56)
[2019-12-13] MEDS ORDERED: Vancomycin 1 GM, Vancomycin 500 MG in Sodium Chloride 0.9% 500 ML IV SCH (11:00)
[2019-12-13] MEDS: Albuterol 0.083% 2.5 MG/3 ML Neb Soln NEB PRN ×3 (11:08→19:30)
[2019-12-13] MEDS: Acetaminophen/Codeine 300-30 MG Tab PO PRN ×2 (12:05→18:40)
[2019-12-13] MEDS: Promethazine 12.5 MG in Sodium Chloride 0.9% 50 ML IV PRN (12:40)
[2019-12-13] MEDS ORDERED: Piperacillin/Tazobactam 4.5 GM in Sodium Chloride 0.9% 100 ML IV ONE (13:00)
[2019-12-13] MEDS ORDERED: guaiFENesin/Dextromethorphan 100-10 MG/5 ML Soln 5 ML Cup PO PRN (14:00)
[2019-12-13] MEDS ORDERED: Piperacillin/Tazobactam 4.5 GM AdvVial ONE (19:46)
[2019-12-13] MEDS: Piperacillin/Tazobactam 4.5 GM in Sodium Chloride 0.9% 100 ML IV SCH (20:14)
[2019-12-14] MEDS: Promethazine 12.5 MG in Sodium Chloride 0.9% 50 ML IV PRN (00:31)
[2019-12-14] MEDS: Acetaminophen 325 MG Tab PO PRN ×3 (00:32→15:54)
[2019-12-14] MEDS: Piperacillin/Tazobactam 4.5 GM in Sodium Chloride 0.9% 100 ML IV SCH ×3 (04:09→20:24)
[2019-12-14] MEDS: Albuterol 0.083% 2.5 MG/3 ML Neb Soln NEB PRN ×4 (06:02→20:03)
--- NOTE | 2019-12-14 07:48 | PCM.PN ---
- General Info Date of Service: 12/14/19 Functional Status: Reports: Pain Controlled, Tolerating Diet, Ambulating, Urinating, Incentive Spirometry, Other (Acapella ). Denies: New Symptoms - Review of Systems General: Reports: Weakness (improved), Fatigue (did not sleep well ). Denies: Fever (Overnight but none now ), Malaise, Chills HEENT: Reports: No Symptoms. Denies: Headaches, Sore Throat Pulmonary: Reports: Cough (improved ). Denies: Shortness of Breath, Pleuritic Chest Pain, Sputum, Wheezing Cardiovascular: Reports: No Symptoms. Denies: Chest Pain, Palpitations, Dyspnea on Exertion, Edema Gastrointestinal: Reports: No Symptoms. Denies: Abdominal Pain, Constipation, Diarrhea, Nausea, Vomiting Genitourinary: Reports: No Symptoms. Denies: Pain Musculoskeletal: Reports: No Symptoms Skin: Reports: No Symptoms. Denies: Cyanosis Neurological: Reports: No Symptoms. Denies: Confusion, Difficulty Walking, Gait Disturbance Psychiatric: Reports: No Symptoms - Patient Data Vitals - Most Recent: Last Vital Signs Temp 98.4 F 12/14/19 04:01 Pulse 71 12/14/19 04:01 Resp 14 12/14/19 04:01 BP 100/56 L 12/14/19 04:01 Pulse Ox 95 12/14/19 06:06 Weight - Most Recent: 250 lb 12.8 oz I&O - Last 24 Hours: Intake & Output 12/13/19 12/14/19 12/14/19 22:59 06:59 14:59 Intake Total 2100 3240 Output Total 2600 3000 Balance -500 240 Lab Results Last 24 Hours: Laboratory Results - last 24 hr 12/11/19 12/13/19 12/13/19 Range/Units 07:26 06:00 09:55 WBC 7.62 (3.98-10.04) K/mm3 RBC 3.45 L (3.98-5.22) M/mm3 Hgb 10.2 L (11.2-15.7) gm/dl Hct 31.2 L (34.1-44.9) % MCV 90.4 (79.4-94.8) fl MCH 29.6 (25.6-32.2) pg MCHC 32.7 (32.2-35.5) g/dl RDW Std Deviation 47.2 H (36.4-46.3) fL Plt Count 135 L (182-369) K/mm3 MPV 11.2 (9.4-12.3) fl Neut % (Auto) 78.5 H (34.0-71.1) % Lymph % (Auto) 14.2 L (19.3-51.7) % [place] % (Auto) 5.4 (4.7-12.5) % Eos % (Auto) 1.2 (0.7-5.8) Baso % (Auto) 0.3 (0.1-1.2) % Neut # (Auto) 5.99 (1.56-6.13) K/mm3 Lymph # (Auto) 1.08 L (1.18-3.74) K/mm3 Sutter # (Auto) 0.41 H (0.24-0.36) K/mm3 Eos # (Auto) 0.09 (0.04-0.36) K/mm3 Baso # (Auto) 0.02 (0.01-0.08) K/mm3 Manual Slide Review Abnormal smear Sodium (136-145) mEq/L Potassium (3.5-5.1) mEq/L Chloride (98-107) mEq/L Carbon Dioxide (21-32) mEq/L Anion Gap (5-15) BUN (7-18) mg/dL Creatinine (0.55-1.02) mg/dL Est Cr Clr Drug Dosing mL/min Estimated GFR (MDRD) (>60) mL/min BUN/Creatinine Ratio (14-18) Glucose (74-106) mg/dL Lactic Acid (0.4-2.0) mmol/L Calcium (8.5-10.1) mg/dL Phosphorus (2.6-4.7) mg/dL Magnesium (1.8-2.4) mg/dl Total Bilirubin (0.2-1.0) mg/dL AST (15-37) U/L ALT (14-59) U/L Alkaline Phosphatase (46-116) U/L Total Protein (6.4-8.2) g/dl Albumin (3.4-5.0) g/dl Globulin gm/dL Albumin/Globulin Ratio (1-2) Procalcitonin 19.79 H 13.47 H (<0.10) ng/mL Vancomycin Trough (10.0-20.0) MRSA (PCR) 12/13/19 12/13/19 12/13/19 Range/Units 09:55 09:55 11:07 WBC (3.98-10.04) K/mm3 RBC (3.98-5.22) M/mm3 Hgb (11.2-15.7) gm/dl Hct (34.1-44.9) % MCV (79.4-94.8) fl MCH (25.6-32.2) pg MCHC (32.2-35.5) g/dl RDW Std Deviation (36.4-46.3) fL Plt Count (182-369) K/mm3 MPV (9.4-12.3) fl Neut % (Auto) (34.0-71.1) % Lymph % (Auto) (19.3-51.7) % [place] % (Auto) (4.7-12.5) % Eos % (Auto) (0.7-5.8) Baso % (Auto) (0.1-1.2) % Neut # (Auto) (1.56-6.13) K/mm3 Lymph # (Auto) (1.18-3.74) K/mm3 Sutter # (Auto) (0.24-0.36) K/mm3 Eos # (Auto) (0.04-0.36) K/mm3 Baso # (Auto) (0.01-0.08) K/mm3 Manual Slide Review Sodium 140 (136-145) mEq/L Potassium 3.7 (3.5-5.1) mEq/L Chloride 104 (98-107) mEq/L Carbon Dioxide 28 (21-32) mEq/L Anion Gap 11.7 (5-15) BUN 4 L (7-18) mg/dL Creatinine 0.6 (0.55-1.02) mg/dL Est Cr Clr Drug Dosing 137.04 mL/min Estimated GFR (MDRD) > 60 (>60) mL/min BUN/Creatinine Ratio 6.7 L (14-18) Glucose 105 (74-106) mg/dL Lactic Acid (0.4-2.0) mmol/L Calcium 7.5 L (8.5-10.1) mg/dL Phosphorus (2.6-4.7) mg/dL Magnesium 2.0 (1.8-2.4) mg/dl Total Bilirubin 0.6 (0.2-1.0) mg/dL AST 19 (15-37) U/L ALT 22 (14-59) U/L Alkaline Phosphatase 94 (46-116) U/L Total Protein 5.2 L (6.4-8.2) g/dl Albumin 2.0 L (3.4-5.0) g/dl Globulin 3.2 gm/dL Albumin/Globulin Ratio 0.6 L (1-2) Procalcitonin (<0.10) ng/mL Vancomycin Trough 12.8 (10.0-20.0) MRSA (PCR) Negative 12/13/19 12/13/19 12/14/19 Range/Units 20:56 20:56 04:43 WBC 7.91 8.61 (3.98-10.04) K/mm3 RBC 3.62 L 3.48 L (3.98-5.22) M/mm3 Hgb 10.7 L 10.2 L (11.2-15.7) gm/dl Hct 32.9 L 31.4 L (34.1-44.9) % MCV 90.9 90.2 (79.4-94.8) fl MCH 29.6 29.3 (25.6-32.2) pg MCHC 32.5 32.5 (32.2-35.5) g/dl RDW Std Deviation 47.5 H 46.9 H (36.4-46.3) fL Plt Count 202 183 (182-369) K/mm3 MPV 11.5 11.6 (9.4-12.3) fl Neut % (Auto) 81.9 H 77.9 H (34.0-71.1) % Lymph % (Auto) 13.3 L 14.6 L (19.3-51.7) % [place]utter % (Auto) 2.9 L 5.2 (4.7-12.5) % Eos % (Auto) 0.8 1.2 (0.7-5.8) Baso % (Auto) 0.3 0.3 (0.1-1.2) % Neut # (Auto) 6.49 H 6.70 H (1.56-6.13) K/mm3 Lymph # (Auto) 1.05 L 1.26 (1.18-3.74) K/mm3 Sutter # (Auto) 0.23 L 0.45 H (0.24-0.36) K/mm3 Eos # (Auto) 0.06 0.10 (0.04-0.36) K/mm3 Baso # (Auto) 0.02 0.03 (0.01-0.08) K/mm3 Manual Slide Review Normal smear Sodium (136-145) mEq/L Potassium (3.5-5.1) mEq/L Chloride (98-107) mEq/L Carbon Dioxide (21-32) mEq/L Anion Gap (5-15) BUN (7-18) mg/dL Creatinine (0.55-1.02) mg/dL Est Cr Clr Drug Dosing mL/min Estimated GFR (MDRD) (>60) mL/min BUN/Creatinine Ratio (14-18) Glucose (74-106) mg/dL Lactic Acid 1.3 (0.4-2.0) mmol/L Calcium (8.5-10.1) mg/dL Phosphorus (2.6-4.7) mg/dL Magnesium (1.8-2.4) mg/dl Total Bilirubin (0.2-1.0) mg/dL AST (15-37) U/L ALT (14-59) U/L Alkaline Phosphatase (46-116) U/L Total Protein (6.4-8.2) g/dl Albumin (3.4-5.0) g/dl Globulin gm/dL Albumin/Globulin Ratio (1-2) Procalcitonin (<0.10) ng/mL Vancomycin Trough (10.0-20.0) MRSA (PCR) 12/14/19 Range/Units 04:43 WBC (3.98-10.04) K/mm3 RBC (3.98-5.22) M/mm3 Hgb (11.2-15.7) gm/dl Hct (34.1-44.9) % MCV (79.4-94.8) fl MCH (25.6-32.2) pg MCHC (32.2-35.5) g/dl RDW Std Deviation (36.4-46.3) fL Plt Count (182-369) K/mm3 MPV (9.4-12.3) fl Neut % (Auto) (34.0-71.1) % Lymph % (Auto) (19.3-51.7) % [place]utter % (Auto) (4.7-12.5) % Eos % (Auto) (0.7-5.8) Baso % (Auto) (0.1-1.2) % Neut # (Auto) (1.56-6.13) K/mm3 Lymph # (Auto) (1.18-3.74) K/mm3 Sutter # (Auto) (0.24-0.36) K/mm3 Eos # (Auto) (0.04-0.36) K/mm3 Baso # (Auto) (0.01-0.08) K/mm3 Manual Slide Review Sodium 140 (136-145) mEq/L Potassium 3.7 (3.5-5.1) mEq/L Chloride 104 (98-107) mEq/L Carbon Dioxide 24 (21-32) mEq/L Anion Gap 15.7 H (5-15) BUN 4 L (7-18) mg/dL Creatinine 0.7 (0.55-1.02) mg/dL Est Cr Clr Drug Dosing 117.47 mL/min Estimated GFR (MDRD) > 60 (>60) mL/min BUN/Creatinine Ratio 5.7 L (14-18) Glucose 108 H (74-106) mg/dL Lactic Acid (0.4-2.0) mmol/L Calcium 7.8 L (8.5-10.1) mg/dL Phosphorus 3.8 (2.6-4.7) mg/dL Magnesium 1.7 L (1.8-2.4) mg/dl Total Bilirubin 0.7 (0.2-1.0) mg/dL AST 13 L (15-37) U/L ALT 19 (14-59) U/L Alkaline Phosphatase 95 (46-116) U/L Total Protein 6.0 L (6.4-8.2) g/dl Albumin 2.0 L (3.4-5.0) g/dl Globulin 4.0 gm/dL Albumin/Globulin Ratio 0.5 L (1-2) Procalcitonin (<0.10) ng/mL Vancomycin Trough (10.0-20.0) MRSA (PCR) Jet Results Last 24 Hours: Microbiology 12/11/19 14:40 Aerobic Blood Culture - Preliminary Blood - Venous - Lab Draw Beta Streptococcus Group C Anaerobic Blood Culture - Preliminary Beta Streptococcus Group C 12/11/19 14:20 Aerobic Blood Culture - Preliminary Blood - Venous Beta Streptococcus Group C Anaerobic Blood Culture - Preliminary Beta Streptococcus Group C Med Orders - Current: Current Medications Acetaminophen (Tylenol) 650 mg PO Q4H PRN PRN Reason: Pain (Mild 1-3)/fever Last Admin: 12/14/19 06:20 Dose: 650 mg Acetaminophen/Codeine Phosphate (Tylenol With Codeine No.3 300mg/30mg) 1 tab PO Q4H PRN PRN Reason: Pain (moderate 4-6) Last Admin: 12/13/19 18:40 Dose: 1 tab Acyclovir (Zovirax) 400 mg PO TID [facility] Last Admin: 12/13/19 20:00 Dose: 400 mg Albuterol (Proventil Neb Soln) 2.5 mg NEB Q4HRRT PRN PRN Reason: Shortness of Breath Last Admin: 12/14/19 06:02 Dose: 2.5 mg Benzocaine/Menthol (Cepacol Sore Throat) 1 lozenge MUCMEM Q2H PRN PRN Reason: Throat pain Bismuth Subsalicylate (Pepto Bismol) 30 ml PO Q4H PRN PRN Reason: Abdominal Pain Last Admin: 12/13/19 20:00 Dose: 30 ml Famotidine (Pepcid) 20 mg PO DAILY [facility] Guaifenesin/Phenylephrine HCl (Robitussin Dm) 10 ml PO TID@0700,1400,2100 PRN PRN Reason: Cough Promethazine HCl 12.5 mg/ (Sodium Chloride) 50.5 mls @ 100 mls/hr IV Q6H PRN PRN Reason: Nausea/Vomiting Last Admin: 12/14/19 00:31 Dose: 100 mls/hr Levofloxacin/Dextrose 750 mg/ (Premix) 150 mls @ 100 mls/hr IV Q24H [facility] Last Admin: 12/13/19 10:56 Dose: 100 mls/hr Piperacillin Sod/Tazobactam (Sod 4.5 gm/ Sodium Chloride) 100 mls @ 25 mls/hr IV Q8H [facility] Last Admin: 12/14/19 04:09 Dose: 25 mls/hr Ketorolac Tromethamine (Toradol) 30 mg IV Q6H PRN PRN Reason: Pain (moderate 4-6) Last Admin: 12/11/19 14:10 Dose: 30 mg Morphine Sulfate (Morphine) 2 mg IVPUSH Q4H PRN PRN Reason: Breakthrough Pain Last Admin: 12/13/19 00:24 Dose: 2 mg Vortioxetine Hydrobromide [ Trintellix] 10 Mg Pt 's Own 0 mg PO DAILY [facility] Last Admin: 12/13/19 09:46 Dose: Not Given Sodium Chloride (Saline Flush) 10 ml FLUSH ONETIME PRN PRN Reason: IV FLUSH Last Admin: 12/11/19 15:16 Dose: 10 ml Spironolactone (Aldactone) 100 mg PO DAILY [facility] Last Admin: 12/13/19 09:35 Dose: 100 mg Topiramate (Topamax) 25 mg PO DAILY [facility] Last Admin: 12/13/19 09:35 Dose: 25 mg Discontinued Medications Al Hydroxide/Mg Hydroxide 30 (ml/ Lidocaine HCl 15 ml) 0 ml PO ONETIME ONE Stop: 12/13/19 08:14 Last Admin: 12/13/19 09:51 Dose: 45 ml Furosemide (Lasix) 20 mg IVPUSH NOW ONE Stop: 12/12/19 06:23 Last Admin: 12/12/19 06:48 Dose: 20 mg Hydromorphone HCl (Dilaudid) 1 mg IVPUSH ONETIME ONE Stop: 12/11/19 07:50 Last Admin: 12/11/19 07:55 Dose: 1 mg Sodium Chloride (Normal Saline) 1,000 mls @ 999 mls/hr IV ONETIME ONE Stop: 12/11/19 08:14 Last Admin: 12/11/19 07:32 Dose: 999 mls/hr Sodium Chloride (Normal Saline) 1,000 mls @ 1,000 mls/hr IV ONETIME ONE Stop: 12/11/19 09:33 Last Admin: 12/11/19 08:48 Dose: 1,000 mls/hr Potassium Chloride 10 meq/ (Premix) 100 mls @ 100 mls/hr IV Q1H [facility] Stop: 12/11/19 12:44 Last Admin: 12/11/19 12:11 Dose: 100 mls/hr Magnesium Sulfate/Dextrose 1 (gm/ Premix) 100 mls @ 100 mls/hr IV ONETIME ONE Stop: 12/11/19 10:17 Last Admin: 12/11/19 09:31 Dose: 100 mls/hr Magnesium Sulfate/Dextrose 1 (gm/ Premix) 100 mls @ 100 mls/hr IV ONETIME ONE Stop: 12/11/19 11:29 Last Admin: 12/11/19 10:50 Dose: 100 mls/hr Potassium Phosphate 30 mmole/ (Sodium Chloride) 510 mls @ 102 mls/hr IV ONETIME ONE Stop: 12/11/19 18:59 Last Infusion: 12/11/19 17:23 Dose: 65 mls/hr Sodium Phosphate 30 mmole/ (Sodium Chloride) 260 mls @ 130 mls/hr IV ONETIME ONE Stop: 12/11/19 13:29 Last Infusion: 12/11/19 13:58 Dose: 100 mls/hr Lactated Ringer's (Ringers, Lactated) 1,000 mls @ 100 mls/hr IV ASDIRECTED [facility] Last Infusion: 12/11/19 13:49 Dose: 100 mls/hr Lactated Ringer's (Ringers, Lactated) 1,000 mls @ 125 mls/hr IV ASDIRECTED [facility] Stop: 12/11/19 23:30 Ampicillin Sodium/Sulbactam (Sodium 3 gm/ Sodium Chloride) 100 mls @ 200 mls/ hr IV Q6H [facility] Last Admin: 12/12/19 11:03 Dose: Not Given Lactated Ringer's (Ringers, Lactated) 1,000 mls @ 150 mls/hr IV ASDIRECTED [facility] Last Admin: 12/12/19 04:38 Dose: 150 mls/hr Vancomycin HCl 1.75 gm/ Sodium (Chloride) 500 mls @ 250 mls/hr IV ONETIME ONE Stop: 12/12/19 12:59 Last Admin: 12/12/19 10:51 Dose: 250 mls/hr Vancomycin HCl 1 gm/Vancomycin HCl 250 mg/ Sodium Chloride 250 mls @ 166.667 mls/hr IV Q8H [facility] Last Admin: 12/13/19 03:22 Dose: 166.667 mls/hr Piperacillin Sod/Tazobactam (Sod 4.5 gm/ Sodium Chloride) 100 mls @ 200 mls/hr IV ONETIME ONE Stop: 12/13/19 13:29 Last Admin: 12/13/19 13:15 Dose: 200 mls/hr Vancomycin HCl 1 gm/Vancomycin HCl 500 mg/ Sodium Chloride 500 mls @ 250 mls/ hr IV Q8H [facility] Stop: 12/13/19 14:00 Last Admin: 12/13/19 11:53 Dose: 250 mls/hr Iopamidol (Isovue-300 (61%)) 100 ml IVPUSH ONETIME ONE Stop: 12/11/19 14:54 Last Admin: 12/11/19 15:16 Dose: 100 ml Ketorolac Tromethamine (Toradol) 30 mg IVPUSH ONETIME ONE Stop: 12/11/19 07:50 Last Admin: 12/11/19 07:56 Dose: 30 mg Magnesium Oxide (Magnesium Oxide) 400 mg PO BID [facility] Stop: 12/12/19 21:01 Last Admin: 12/12/19 21:39 Dose: 400 mg Acyclovir 400 Mg (Pt's Own Medication) 0 mg PO TID [facility] Ondansetron HCl (Zofran) 4 mg IVPUSH ONETIME ONE Stop: 12/11/19 07:15 Last Admin: 12/11/19 07:32 Dose: 4 mg Oxycodone HCl (Oxycodone) 5 mg PO Q4H PRN PRN Reason: Pain (moderate 4-6) Last Admin: 12/12/19 09:01 Dose: 5 mg Piperacillin Sod/Tazobactam Sod (Piperacil-Tazobact) Confirm Administered Dose 4.5 gm .ROUTE .STK-MED ONE Stop: 12/13/19 19:47 Last Admin: 12/13/19 20:57 Dose: Not Given Potassium Chloride (Klor-Con M20) 40 meq PO BEDTIME [facility] Stop: 12/11/19 21:01 Last Admin: 12/11/19 21:53 Dose: 40 meq Potassium Chloride (Klor-Con M20) 40 meq PO BID [facility] Stop: 12/12/19 21:01 Last Admin: 12/12/19 21:41 Dose: 40 meq Topiramate (Topamax) 25 mg PO DAILY [facility] Last Admin: 12/12/19 11:47 Dose: Not Given Topiramate (Topamax) 25 mg PO DAILY [facility] Valacyclovir HCl (Valtrex) 400 mg PO TID PRN PRN Reason: breakouts Vancomycin HCl (Pharmacy To Dose - Vancomycin) 1 dose .XX ASDIRECTED PRN PRN Reason: RX TO DOSE VANCO - Exam Quality Assessment: DVT Prophylaxis. No: Supplemental Oxygen General: Alert, Oriented, Cooperative, No Acute Distress HEENT: Pupils Equal, Pupils Reactive, Mucous Membr. Moist/[place] Neck: Supple, +2 Carotid Pulse wo Bruit Lungs: Normal Respiratory Effort, Decreased Breath Sounds. No: Crackles, Rhonchi, Wheezing Cardiovascular: Regular Rate, Regular Rhythm GI/Abdominal Exam: Normal Bowel Sounds, Soft, Non-Tender, No Distention (Female) Exam: Deferred Back Exam: Normal Inspection, Full Range of Motion Extremities: Normal Inspection, Normal Range of Motion, Non-Tender, No Pedal Edema, Normal Capillary Refill Peripheral Pulses: 3+: Radial (L), Radial (R), Dorsalis Pedis (L), Dorsalis Pedis (R) Skin: Warm, Dry, Intact Neurological: No New Focal Deficit Psy/Mental Status: Alert Sepsis Event Note - Evaluation Sepsis Screening Result: No Definite Risk - Focused Exam Vital Signs: Vital Signs Temp Temp Pulse Resp BP Pulse Ox Pulse Ox 12/14/19 06:06 95 12/14/19 04:01 98.4 F 71 14 100/56 L 94 L 12/14/19 00:32 102.3 F H 12/14/19 00:07 102.4 F H 100 16 123/68 93 L 12/13/19 20:15 100.0 F 12/13/19 19:59 98.1 F 12/13/19 19:57 98.8 F 109 H 30 H 126/96 H 93 L Date Exam was Performed: 12/14/19 Time Exam was Performed: 15:04 - Problem List & Annotations (1) Generalized weakness SNOMED Code(s): 65215079 Code(s): R53.1 - WEAKNESS Status: Acute Priority: High Current Visit: Yes (2) Diarrhea SNOMED Code(s): 00471099 Code(s): R19.7 - DIARRHEA, UNSPECIFIED Status: Resolved Priority: High Current Visit: Yes Qualifiers: Diarrhea type: unspecified type Qualified Code(s): R19.7 - Diarrhea, unspecified (3) Hypokalemia SNOMED Code(s): 59154760 Code(s): E87.6 - HYPOKALEMIA Status: Resolved Priority: High Current Visit: Yes (4) Hypomagnesemia SNOMED Code(s): 093128014 Code(s): E83.42 - HYPOMAGNESEMIA Status: Acute Priority: High Current Visit: Yes (5) Nausea & vomiting SNOMED Code(s): 23475977 Code(s): R11.2 - NAUSEA WITH VOMITING, UNSPECIFIED Status: Resolved Priority: High Current Visit: Yes Qualifiers: Vomiting type: unspecified Vomiting Intractability: unspecified Qualified Code(s): R11.2 - Nausea with vomiting, unspecified (6) Tonsillitis with exudate SNOMED Code(s): 82136416, 772311679 Code(s): J03.90 - ACUTE TONSILLITIS, UNSPECIFIED Status: Acute Priority: High Current Visit: Yes (7) History of TIA (transient ischemic attack) SNOMED Code(s): 570482911 Code(s): Z86.73 - PRSNL HX OF TIA (TIA), AND CEREB INFRC W/O RESID DEFICITS Status: Chronic Priority: Low Current Visit: No (8) History of herpes simplex type 2 infection SNOMED Code(s): 118813304 Code(s): Z86.19 - PERSONAL HISTORY OF OTHER INFECTIOUS AND PARASITIC DISEASES Status: Chronic Priority: Low Current Visit: No (9) Migraines SNOMED Code(s): 81042988 Code(s): G43.909 - MIGRAINE, UNSP, NOT INTRACTABLE, WITHOUT STATUS MIGRAINOSUS Status: Chronic Priority: Low Current Visit: No Qualifiers: Migraine type: unspecified Status migrainosus presence: without status migrainosus Intractability: not intractable Qualified Code(s): G43.909 - Migraine, unspecified, not intractable, without status migrainosus (10) Anxiety SNOMED Code(s): 76077979 Code(s): F41.9 - ANXIETY DISORDER, UNSPECIFIED Status: Chronic Priority: Low Current Visit: No (11) Depression SNOMED Code(s): 35623381 Code(s): F32.9 - MAJOR DEPRESSIVE DISORDER, SINGLE EPISODE, UNSPECIFIED Status: Chronic Priority: Low Current Visit: No Qualifiers: Depression Type: other depression Qualified Code(s): F32.89 - Other specified depressive episodes (12) Group C streptococcal infection SNOMED Code(s): 480449473 Code(s): A49.1 - STREPTOCOCCAL INFECTION, UNSPECIFIED SITE Status: Acute Priority: High Current Visit: Yes (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 SNOMED Code(s): 323809114 Code(s): E83.39 - OTHER DISORDERS OF PHOSPHORUS METABOLISM Status: Resolved Priority: High Current Visit: Yes (14) PCOS (polycystic ovarian syndrome) SNOMED Code(s): 606081153 Code(s): E28.2 - POLYCYSTIC OVARIAN SYNDROME Status: Chronic Priority: Low Current Visit: No (15) Bacteremia SNOMED Code(s): 6076562 Code(s): R78.81 - BACTEREMIA Status: Acute Priority: High Current Visit : Yes (16) Fever SNOMED Code(s): 175528963 Code(s): R50.9 - FEVER, UNSPECIFIED Status: Acute Priority: High Current Visit: Yes Qualifiers: Fever type: unspecified Qualified Code(s): R50.9 - Fever, unspecified (17) Epigastric pain SNOMED Code(s): 70482215 Code(s): R10.13 - EPIGASTRIC PAIN Status: Acute Priority: Medium Current Visit: Yes (18) Hypoxia SNOMED Code(s): 844295937 Code(s): R09.02 - HYPOXEMIA Status: Acute Priority: High Current Visit : Yes - Problem List Review Problem List Initiated/Reviewed/Updated: Yes - My Orders Last 24 Hours: My Active Orders 12/13/19 09:52 Consult to Respiratory Therapy [Respiratory Care Assess and Treatment] [CONS] Routine RT Acapella [RESPCARE] Routine 12/13/19 10:00 Levofloxacin/Dextrose 5%-Water [Levaquin in D5W 750 MG/150 ML] 750 mg Premix Bag 1 bag IV Q24H 12/13/19 10:01 Bismuth Subsalicylate [Pepto Bismol] 30 ml PO Q4H PRN 12/13/19 10:02 Ambulate [RC] PER UNIT ROUTINE 12/13/19 10:06 Isolation [COMM] Routine 12/13/19 14:00 Dextromethorphan/guaiFENesin [Robitussin DM] 10 ml PO TID@0700,1400,2100 PRN Blood Culture x2 Reflex Set [OM.PC] ASDIRECTED 12/13/19 14:30 CULTURE BLOOD [BC] Routine 12/13/19 14:37 CULTURE BLOOD [BC] Routine 12/13/19 16:00 Chest Physiotherapy [RT Chest Physiotherapy] [RC] QID 12/13/19 21:00 Piperacillin/Tazobactam [Piperacil-Tazobact] 4.5 gm Sodium Chloride 0.9% [ Normal Saline] 100 ml IV Q8H 12/14/19 09:00 Famotidine [Pepcid] 20 mg PO DAILY 12/15/19 05:11 CBC WITH AUTO DIFF [HEME] AM COMPREHENSIVE METABOLIC PN,CMP [CHEM] AM MAGNESIUM [CHEM] AM PHOSPHORUS [CHEM] AM PROCALCITONIN [REF] Routine 12/17/19 05:11 PROCALCITONIN [REF] Routine 12/19/19 05:11 PROCALCITONIN [REF] Routine - Plan Plan:: Tonsillitis with exudate Generalized weakness Bacteremia Fever Hypoxia Epigastric pain Pneumonia Reports symptoms started with throat pain - seen in COVID clinic on and diagnosed with Group C Strep Started on azithromycin - [facility] negative Returned to ED on due to ongoing symptoms - given IM PCN injection CT scan on 12/08/19 showed no abscess Reports continued throat pain, nausea, vomiting, diarrhea, weakness Erythematous and edematous right tonsil noted on admission No clinical signs of abscess No leukocytosis, CRP 25.0 (down from 36.7) on admission hCG negative Intal sepsis screen negative On floor patient developed fever, Lactic acid 5.6; Repeat lactic acid 1.9; Started on Unasyn then Blood culture growing group C strep 4/ bottles, awaiting sensitivities Repeat CT scan shows improvement of tonsillitis, no abscess COVID-19 screen negative Repeat CXR shows bilateral infiltrates - worse on right Negative H. Pylori Temperature 97.2-102.4 past 24 hrs; Tmax 105.3 on 12/10 Echo on 12/12/19 shows EF of 55-60%, No valvular disease, No vegetation PLAN - Supplement electrolytes as needed - Discontinue vancomycin as MRSA screen is negative - Continue Levaquin and Zosyn - Tylenol for fevers/pain; Tylenol 3 for moderate pain and IVP morphine for breakthrough pain - Cepacol throat lozenges - Monitor labs - Repeat BCs obtained yesterday and pending - Continue famotidine - IS/Acapella/RT - O2 as needed - Repeat CXR tomorrow Hypomagnesemia Magnesium 1.7 PLAN - Supplement - Monitor labs PCOS On home spironolactone and metformin PLAN - Hold metformin - Continue spironolactone History of herpes simplex type 2 infection On 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 Rangel Code status: Full Code Disposition: Patient will continue to be admitted to [facility] due to bacteremia and PNA. Antibiotic coverage expanded. LOS >96 hrs pending repeat blood cultures and PNA. Continued fevers.
[2019-12-14] MEDS: Levofloxacin/Dextrose 5%-Water 750 MG in Premix Bag 1 BAG IV SCH (09:00)
[2019-12-14] MEDS: Famotidine 20 MG Tab PO SCH (09:00)
[2019-12-14] MEDS: Spironolactone 100 MG Tab PO SCH (09:00)
[2019-12-14] MEDS: Acyclovir 200 MG Cap PO SCH ×3 (09:01→20:25)
[2019-12-14] MEDS: Topiramate 25 MG Tab PO SCH (09:01)
[2019-12-14] MEDS: VORTIOXETINE HYDROBROMIDE 10 MG PO SCH (09:09)
[2019-12-14] MEDS ORDERED: Magnesium Sulfate/Water 2 GM in Premix Bag 1 BAG IV ONE (15:15)
[2019-12-14] MEDS: Acetaminophen/Codeine 300-30 MG Tab PO PRN (23:27)
[2019-12-15] MEDS: Piperacillin/Tazobactam 4.5 GM in Sodium Chloride 0.9% 100 ML IV SCH ×2 (05:16→13:39)
--- NOTE | 2019-12-15 08:48 | CR ---
Chest: 2 views of the chest are obtained. Comparison: Prior chest x-ray of 12/13/19 Atelectasis is seen within both lung bases. Findings on the right side are slightly improved and findings on left side are slightly more prominent. Upper lungs are otherwise clear. Heart size and mediastinum are normal. Bony structures are unremarkable. Impression: 1. Atelectasis on both sides. Findings on the right side are slightly improved with findings on the left side having slightly increased in prominence. Diagnostic code #3 Study was dictated in [facility]
[2019-12-15] MEDS: Topiramate 25 MG Tab PO SCH (09:08)
[2019-12-15] MEDS: Acyclovir 200 MG Cap PO SCH ×2 (09:09→16:27)
[2019-12-15] MEDS: Acetaminophen 325 MG Tab PO PRN (09:09)
[2019-12-15] MEDS: Famotidine 20 MG Tab PO SCH (09:09)
[2019-12-15] MEDS: Spironolactone 100 MG Tab PO SCH (09:09)
[2019-12-15] MEDS: VORTIOXETINE HYDROBROMIDE 10 MG PO SCH (09:10)
[2019-12-15] MEDS: Levofloxacin/Dextrose 5%-Water 750 MG in Premix Bag 1 BAG IV SCH (09:30)
--- NOTE | 2019-12-15 12:18 | PCM.PN ---
- General Info Date of Service: 12/15/19 - Patient Data Vitals - Most Recent: Last Vital Signs Temp 98.2 F 12/15/19 08:31 Pulse 95 12/15/19 08:31 Resp 20 12/15/19 08:31 BP 124/74 12/15/19 08:31 Pulse Ox 93 L 12/15/19 08:36 Weight - Most Recent: 111.629 kg I&O - Last 24 Hours: Intake & Output 12/14/19 12/15/19 12/15/19 22:59 06:59 14:59 Intake Total 1100 1500 240 Output Total 2400 1600 Balance -1300 -100 240 Lab Results Last 24 Hours: Laboratory Results - last 24 hr 12/15/19 12/15/19 Range/Units 05:21 05:21 WBC 7.59 (3.98-10.04) K/mm3 RBC 3.75 L (3.98-5.22) M/mm3 Hgb 11.3 (11.2-15.7) gm/dl Hct 33.4 L (34.1-44.9) % MCV 89.1 (79.4-94.8) fl MCH 30.1 (25.6-32.2) pg MCHC 33.8 (32.2-35.5) g/dl RDW Std Deviation 46.2 (36.4-46.3) fL Plt Count 264 D (182-369) K/mm3 MPV 11.0 (9.4-12.3) fl Neut % (Auto) 67.6 (34.0-71.1) % Lymph % (Auto) 23.2 (19.3-51.7) % Nobles % (Auto) 7.1 (4.7-12.5) % Eos % (Auto) 1.7 (0.7-5.8) Baso % (Auto) 0.4 (0.1-1.2) % Neut # (Auto) 5.13 (1.56-6.13) K/mm3 Lymph # (Auto) 1.76 (1.18-3.74) K/mm3 Nobles # (Auto) 0.54 H (0.24-0.36) K/mm3 Eos # (Auto) 0.13 (0.04-0.36) K/mm3 Baso # (Auto) 0.03 (0.01-0.08) K/mm3 Manual Slide Review Normal smear Sodium 139 (136-145) mEq/L Potassium 4.1 (3.5-5.1) mEq/L Chloride 104 (98-107) mEq/L Carbon Dioxide 26 (21-32) mEq/L Anion Gap 13.1 (5-15) BUN 3 L (7-18) mg/dL Creatinine 0.7 (0.55-1.02) mg/dL Est Cr Clr Drug Dosing 117.47 mL/min Estimated GFR (MDRD) > 60 (>60) mL/min BUN/Creatinine Ratio 4.3 L (14-18) Glucose 101 (74-106) mg/dL Calcium 8.1 L (8.5-10.1) mg/dL Phosphorus 4.1 (2.6-4.7) mg/dL Magnesium 2.0 (1.8-2.4) mg/dl Total Bilirubin 0.6 (0.2-1.0) mg/dL AST 21 (15-37) U/L ALT 23 (14-59) U/L Alkaline Phosphatase 100 (46-116) U/L Total Protein 6.8 (6.4-8.2) g/dl Albumin 2.2 L (3.4-5.0) g/dl Globulin 4.6 gm/dL Albumin/Globulin Ratio 0.5 L (1-2) Jet Results Last 24 Hours: Microbiology 12/11/19 14:20 Aerobic Blood Culture - Preliminary Blood - Venous Beta Streptococcus Group C Anaerobic Blood Culture - Preliminary Beta Streptococcus Group C Probable Anaerobic Gn Bacilli 12/13/19 21:13 Aerobic Blood Culture - Preliminary Blood - Venous NO GROWTH AFTER 1 DAY Anaerobic Blood Culture - Preliminary NO GROWTH AFTER 1 DAY 12/13/19 20:56 Aerobic Blood Culture - Preliminary Blood - Venous - Lab Draw NO GROWTH AFTER 1 DAY Anaerobic Blood Culture - Preliminary NO GROWTH AFTER 1 DAY 12/11/19 14:40 Aerobic Blood Culture - Preliminary Blood - Venous - Lab Draw Beta Streptococcus Group C Anaerobic Blood Culture - Preliminary Beta Streptococcus Group C Probable Anaerobic Gn Bacilli 12/13/19 14:30 Aerobic Blood Culture - Preliminary Blood - Venous NO GROWTH AFTER 1 DAY Anaerobic Blood Culture - Preliminary NO GROWTH AFTER 1 DAY 12/13/19 14:37 Aerobic Blood Culture - Preliminary Blood - Venous - Lab Draw NO GROWTH AFTER 1 DAY Anaerobic Blood Culture - Preliminary NO GROWTH AFTER 1 DAY Med Orders - Current: Current Medications Acetaminophen (Tylenol) 650 mg PO Q4H PRN PRN Reason: Pain (Mild 1-3)/fever Last Admin: 12/15/19 09:09 Dose: 650 mg Acetaminophen/Codeine Phosphate (Tylenol With Codeine No.3 300mg/30mg) 1 tab PO Q4H PRN PRN Reason: Pain (moderate 4-6) Last Admin: 12/14/19 23:27 Dose: 1 tab Acyclovir (Zovirax) 400 mg PO TID [facility] Last Admin: 12/15/19 09:09 Dose: 400 mg Albuterol (Proventil Neb Soln) 2.5 mg NEB Q4HRRT PRN PRN Reason: Shortness of Breath Last Admin: 12/14/19 20:03 Dose: 2.5 mg Benzocaine/Menthol (Cepacol Sore Throat) 1 lozenge MUCMEM Q2H PRN PRN Reason: Throat pain Bismuth Subsalicylate (Pepto Bismol) 30 ml PO Q4H PRN PRN Reason: Abdominal Pain Last Admin: 12/13/19 20:00 Dose: 30 ml Famotidine (Pepcid) 20 mg PO DAILY [facility] Last Admin: 12/15/19 09:09 Dose: 20 mg Guaifenesin/Phenylephrine HCl (Robitussin Dm) 10 ml PO TID@0700,1400,2100 PRN PRN Reason: Cough Promethazine HCl 12.5 mg/ (Sodium Chloride) 50.5 mls @ 100 mls/hr IV Q6H PRN PRN Reason: Nausea/Vomiting Last Admin: 12/14/19 00:31 Dose: 100 mls/hr Levofloxacin/Dextrose 750 mg/ (Premix) 150 mls @ 100 mls/hr IV Q24H [facility] Last Admin: 12/15/19 09:30 Dose: 100 mls/hr Piperacillin Sod/Tazobactam (Sod 4.5 gm/ Sodium Chloride) 100 mls @ 25 mls/hr IV Q8H [facility] Last Admin: 12/15/19 05:16 Dose: 25 mls/hr Ketorolac Tromethamine (Toradol) 30 mg IV Q6H PRN PRN Reason: Pain (moderate 4-6) Last Admin: 12/11/19 14:10 Dose: 30 mg Morphine Sulfate (Morphine) 2 mg IVPUSH Q4H PRN PRN Reason: Breakthrough Pain Last Admin: 12/13/19 00:24 Dose: 2 mg Vortioxetine Hydrobromide [ Trintellix] 10 Mg Pt 's Own 0 mg PO DAILY [facility] Last Admin: 12/15/19 09:10 Dose: Not Given Sodium Chloride (Saline Flush) 10 ml FLUSH ONETIME PRN PRN Reason: IV FLUSH Last Admin: 12/11/19 15:16 Dose: 10 ml Spironolactone (Aldactone) 100 mg PO DAILY [facility] Last Admin: 12/15/19 09:09 Dose: 100 mg Topiramate (Topamax) 25 mg PO DAILY [facility] Last Admin: 12/15/19 09:08 Dose: 25 mg Discontinued Medications Al Hydroxide/Mg Hydroxide 30 (ml/ Lidocaine HCl 15 ml) 0 ml PO ONETIME ONE Stop: 12/13/19 08:14 Last Admin: 12/13/19 09:51 Dose: 45 ml Furosemide (Lasix) 20 mg IVPUSH NOW ONE Stop: 12/12/19 06:23 Last Admin: 12/12/19 06:48 Dose: 20 mg Hydromorphone HCl (Dilaudid) 1 mg IVPUSH ONETIME ONE Stop: 12/11/19 07:50 Last Admin: 12/11/19 07:55 Dose: 1 mg Sodium Chloride (Normal Saline) 1,000 mls @ 999 mls/hr IV ONETIME ONE Stop: 12/11/19 08:14 Last Admin: 12/11/19 07:32 Dose: 999 mls/hr Sodium Chloride (Normal Saline) 1,000 mls @ 1,000 mls/hr IV ONETIME ONE Stop: 12/11/19 09:33 Last Admin: 12/11/19 08:48 Dose: 1,000 mls/hr Potassium Chloride 10 meq/ (Premix) 100 mls @ 100 mls/hr IV Q1H [facility] Stop: 12/11/19 12:44 Last Admin: 12/11/19 12:11 Dose: 100 mls/hr Magnesium Sulfate/Dextrose 1 (gm/ Premix) 100 mls @ 100 mls/hr IV ONETIME ONE Stop: 12/11/19 10:17 Last Admin: 12/11/19 09:31 Dose: 100 mls/hr Magnesium Sulfate/Dextrose 1 (gm/ Premix) 100 mls @ 100 mls/hr IV ONETIME ONE Stop: 12/11/19 11:29 Last Admin: 12/11/19 10:50 Dose: 100 mls/hr Potassium Phosphate 30 mmole/ (Sodium Chloride) 510 mls @ 102 mls/hr IV ONETIME ONE Stop: 12/11/19 18:59 Last Infusion: 12/11/19 17:23 Dose: 65 mls/hr Sodium Phosphate 30 mmole/ (Sodium Chloride) 260 mls @ 130 mls/hr IV ONETIME ONE Stop: 12/11/19 13:29 Last Infusion: 12/11/19 13:58 Dose: 100 mls/hr Lactated Ringer's (Ringers, Lactated) 1,000 mls @ 100 mls/hr IV ASDIRECTED [facility] Last Infusion: 12/11/19 13:49 Dose: 100 mls/hr Lactated Ringer's (Ringers, Lactated) 1,000 mls @ 125 mls/hr IV ASDIRECTED [facility] Stop: 12/11/19 23:30 Ampicillin Sodium/Sulbactam (Sodium 3 gm/ Sodium Chloride) 100 mls @ 200 mls/ hr IV Q6H [facility] Last Admin: 12/12/19 11:03 Dose: Not Given Lactated Ringer's (Ringers, Lactated) 1,000 mls @ 150 mls/hr IV ASDIRECTED [facility] Last Admin: 12/12/19 04:38 Dose: 150 mls/hr Vancomycin HCl 1.75 gm/ Sodium (Chloride) 500 mls @ 250 mls/hr IV ONETIME ONE Stop: 12/12/19 12:59 Last Admin: 12/12/19 10:51 Dose: 250 mls/hr Vancomycin HCl 1 gm/Vancomycin HCl 250 mg/ Sodium Chloride 250 mls @ 166.667 mls/hr IV Q8H [facility] Last Admin: 12/13/19 03:22 Dose: 166.667 mls/hr Piperacillin Sod/Tazobactam (Sod 4.5 gm/ Sodium Chloride) 100 mls @ 200 mls/hr IV ONETIME ONE Stop: 12/13/19 13:29 Last Admin: 12/13/19 13:15 Dose: 200 mls/hr Vancomycin HCl 1 gm/Vancomycin HCl 500 mg/ Sodium Chloride 500 mls @ 250 mls/ hr IV Q8H [facility] Stop: 12/13/19 14:00 Last Admin: 12/13/19 11:53 Dose: 250 mls/hr Magnesium Sulfate 2 gm/ Premix 50 mls @ 25 mls/hr IV ONETIME ONE Stop: 12/14/19 17:14 Last Admin: 12/14/19 15:54 Dose: 25 mls/hr Iopamidol (Isovue-300 (61%)) 100 ml IVPUSH ONETIME ONE Stop: 12/11/19 14:54 Last Admin: 12/11/19 15:16 Dose: 100 ml Ketorolac Tromethamine (Toradol) 30 mg IVPUSH ONETIME ONE Stop: 12/11/19 07:50 Last Admin: 12/11/19 07:56 Dose: 30 mg Magnesium Oxide (Magnesium Oxide) 400 mg PO BID [facility] Stop: 12/12/19 21:01 Last Admin: 12/12/19 21:39 Dose: 400 mg Acyclovir 400 Mg (Pt's Own Medication) 0 mg PO TID [facility] Ondansetron HCl (Zofran) 4 mg IVPUSH ONETIME ONE Stop: 12/11/19 07:15 Last Admin: 12/11/19 07:32 Dose: 4 mg Oxycodone HCl (Oxycodone) 5 mg PO Q4H PRN PRN Reason: Pain (moderate 4-6) Last Admin: 12/12/19 09:01 Dose: 5 mg Piperacillin Sod/Tazobactam Sod (Piperacil-Tazobact) Confirm Administered Dose 4.5 gm .ROUTE .STK-MED ONE Stop: 12/13/19 19:47 Last Admin: 12/13/19 20:57 Dose: Not Given Potassium Chloride (Klor-Con M20) 40 meq PO BEDTIME [facility] Stop: 12/11/19 21:01 Last Admin: 12/11/19 21:53 Dose: 40 meq Potassium Chloride (Klor-Con M20) 40 meq PO BID [facility] Stop: 12/12/19 21:01 Last Admin: 12/12/19 21:41 Dose: 40 meq Topiramate (Topamax) 25 mg PO DAILY [facility] Last Admin: 12/12/19 11:47 Dose: Not Given Topiramate (Topamax) 25 mg PO DAILY [facility] Valacyclovir HCl (Valtrex) 400 mg PO TID PRN PRN Reason: breakouts Vancomycin HCl (Pharmacy To Dose - Vancomycin) 1 dose .XX ASDIRECTED PRN PRN Reason: RX TO DOSE VANCO Sepsis Event Note - Evaluation Sepsis Screening Result: No Definite Risk - Focused Exam Vital Signs: Vital Signs Temp Pulse Resp BP Pulse Ox Pulse Ox 12/15/19 08:36 93 L 12/15/19 08:35 93 L 12/15/19 08:31 98.2 F 95 20 124/74 93 L 12/15/19 05:28 98.4 F 87 12 107/77 93 L Date Exam was Performed: 12/15/19 Time Exam was Performed: 12:18 - Plan Plan:: Tonsillitis with exudate Generalized weakness Bacteremia Fever Hypoxia Epigastric pain Pneumonia Reports symptoms started with throat pain - seen in COVID clinic on and diagnosed with Group C Strep Started on azithromycin - Nobles negative Returned to ED on due to ongoing symptoms - given IM PCN injection CT scan on 12/08/19 showed no abscess Reports continued throat pain, nausea, vomiting, diarrhea, weakness Erythematous and edematous right tonsil noted on admission No clinical signs of abscess No leukocytosis, CRP 25.0 (down from 36.7) on admission hCG negative Intal sepsis screen negative On floor patient developed fever, Lactic acid 5.6; Repeat lactic acid 1.9; Started on Unasyn then Blood culture growing group C strep 4/ bottles, awaiting sensitivities Repeat CT scan shows improvement of tonsillitis, no abscess COVID-19 screen negative Repeat CXR shows bilateral infiltrates - worse on right Negative H. Pylori Temperature 97.2-102.4 past 24 hrs; Tmax 105.3 on 12/10 Echo on 12/12/19 shows EF of 55-60%, No valvular disease, No vegetation PLAN - Supplement electrolytes as needed - Discontinue vancomycin as MRSA screen is negative - Continue Levaquin and Zosyn - Tylenol for fevers/pain; Tylenol 3 for moderate pain and IVP morphine for breakthrough pain - Cepacol throat lozenges - Monitor labs - Repeat BCs obtained yesterday and pending - Continue famotidine - IS/Acapella/RT - O2 as needed - Repeat CXR tomorrow Hypomagnesemia Magnesium 1.7 PLAN - Supplement - Monitor labs PCOS On home spironolactone and metformin PLAN - Hold metformin - Continue spironolactone History of herpes simplex type 2 infection On 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 Rangel Code status: Full Code Disposition: Patient will continue to be admitted to M/S/P due to bacteremia and PNA. Antibiotic coverage expanded. LOS >96 hrs pending repeat blood cultures and PNA. Continued fevers.
--- NOTE | 2019-12-15 17:51 | PCM.DCSUM1 ---
Discharge Summary - Hospital Course HPI Initial Comments: Myrna Vazquez is a 29 yo female who presented to ED on 12/11/2019 with sore throat, nausea, vomiting, generalized weakness, and syncope. She was seen in the COVID clinic on the and diagnosed with strep throat. The records indicate this was group C strep. Screen was negative at that time. She started on a Z-Benedict at that time. She then presented to the ED on the because she was still having sore throat along with nausea and vomiting. She also reported that she had 7 syncopal episodes. She was given 2 L of IV fluid and IM penicillin. She was discharged home however symptoms did not resolve. In the ED she is afebrile at 98.1 but she is tachycardic with a pulse of 122. Respirations are 16. Blood pressure 114/66. Pulse ox 96%. EKG is obtained showing sinus tachycardia with a prolonged QT. Right tonsil is noted to be erythematous and edematous. There is no leukocytosis noted on her CBC. Sodium is on the low end of normal but her potassium is very low at 2.2. Magnesium was also found to be low at 1.4. P is quite high at 25.0. She is given 2 L of fluid bolus along with Dilaudid and Toradol for pain. She is also given Zofran. She started on 1 g of IV magnesium and 4 potassium riders. She carries a history of TIA, HSV type II, ectopic , migraines, anxiety , depression, empty sacsella. She is not a smoker. Her PCP is Dr. Rangel. She subsequently admitted to the floor observation status on telemetry for management of her hypokalemia, tonsillitis, and hypomagnesemia. Diagnosis: Stroke: No - Discharge Data Discharge Date: 12/15/19 Discharge Disposition: Home, Self-Care 01 Condition: Good - Referral to Home Health Primary Care Physician: Rick Malcolm MD - Discharge Diagnosis/Problem(s) (1) Fusobacterium infection SNOMED Code(s): 013931227 ICD Code: A49.8 - OTHER BACTERIAL INFECTIONS OF UNSPECIFIED SITE Status: Acute Current Visit: Yes (2) Bacteremia SNOMED Code(s): 6397800 ICD Code: R78.81 - BACTEREMIA Status: Acute Priority: High Current Visit: Yes (3) Epigastric pain SNOMED Code(s): 42091658 ICD Code: R10.13 - EPIGASTRIC PAIN Status: Acute Priority: Medium Current Visit: Yes (4) Fever SNOMED Code(s): 637158369 ICD Code: R50.9 - FEVER, UNSPECIFIED Status: Acute Priority: High Current Visit: Yes Qualifiers: Fever type: unspecified Qualified Code(s): R50.9 - Fever, unspecified (5) Generalized weakness SNOMED Code(s): 61732318 ICD Code: R53.1 - WEAKNESS Status: Acute Priority: High Current Visit: Yes (6) Group C streptococcal infection SNOMED Code(s): 687307695 ICD Code: A49.1 - STREPTOCOCCAL INFECTION, UNSPECIFIED SITE Status: Acute Priority: High Current Visit: Yes (7) Hypomagnesemia SNOMED Code(s): 189671393 ICD Code: E83.42 - HYPOMAGNESEMIA Status: Acute Priority: High Current Visit: Yes (8) Hypoxia SNOMED Code(s): 139950163 ICD Code: R09.02 - HYPOXEMIA Status: Acute Priority: High Current Visit : Yes (9) Tonsillitis with exudate SNOMED Code(s): 34208053, 057977419 ICD Code: J03.90 - ACUTE TONSILLITIS, UNSPECIFIED Status: Acute Priority : High Current Visit: Yes (10) Hypokalemia SNOMED Code(s): 57932272 ICD Code: E87.6 - HYPOKALEMIA Status: Resolved Priority: High Current Visit: Yes (11) Nausea & vomiting SNOMED Code(s): 93217812 ICD Code: R11.2 - NAUSEA WITH VOMITING, UNSPECIFIED Status: Resolved Priority: High Current Visit: Yes Qualifiers: Vomiting type: unspecified Vomiting Intractability: unspecified Qualified Code(s): R11.2 - Nausea with vomiting, unspecified (12) Abdominal pain SNOMED Code(s): 81976480 ICD Code: R10.9 - UNSPECIFIED ABDOMINAL PAIN Status: Acute Current Visit : No Qualifiers: Abdominal location: right lower quadrant Qualified Code(s): R10.31 - Right lower quadrant pain (13) Migraine SNOMED Code(s): 68036581 ICD Code: G43.909 - MIGRAINE, UNSP, NOT INTRACTABLE, WITHOUT STATUS MIGRAINOSUS Status: Acute Current Visit: No (14) Anxiety SNOMED Code(s): 54571805 ICD Code: F41.9 - ANXIETY DISORDER, UNSPECIFIED Status: Chronic Priority : Low Current Visit: No (15) Depression SNOMED Code(s): 17781572 ICD Code: F32.9 - MAJOR DEPRESSIVE DISORDER, SINGLE EPISODE, UNSPECIFIED Status: Chronic Priority: Low Current Visit: No Qualifiers: Depression Type: other depression Qualified Code(s): F32.89 - Other specified depressive episodes (16) Headache SNOMED Code(s): 56227782 ICD Code: R51 - HEADACHE Status: Chronic Priority: Medium Current Visit : No Qualifiers: Headache type: unspecified Headache chronicity pattern: acute headache Intractability: not intractable Qualified Code(s): R51 - Headache - Patient Summary/Data Labs Pending at D/C: Repeat blood culture finalization as well as sensitivities for initial onset Hospital Course: Prior to admission - Reports symptoms started with throat pain - Seen in COVID clinic on - Diagnosed with Group C Strep - Jenkins negative - Started on azithromycin - Returned to ED on due to ongoing symptoms - Given IM PCN injection - CT scan on 12/08/19 showed no abscess 12/10 - Reports continued throat pain, nausea, vomiting, diarrhea, weakness - Erythematous and edematous right tonsil noted on admission - No clinical signs of abscess - No leukocytosis, CRP 25.0 (down from 36.7) on admission - Beta hCG negative - Intal sepsis screen negative 12/11 - Once on floor patient developed fever - Lactic acid 5.6--> given IVF and repeat LA 1.9 - Started on Unasyn - Blood cultures drawn - Repeat CT scan with improvement in swelling, no signs of abscess - At 11 hours blood cultures grew gram + cocci - Echocardiogram ordered 12/12 - Hypoxemia episode requiring replacement of O2 via NC - CXR with BL new infiltrates, greater on right base - Added Levaquin and Zosyn - Started on Vancomycin - COVID 19 screen --> negative - 10/19 blood cultures positive for group C strep - MRSA PCR test ordered 12/13 - Tapered off nasal cannula - Day 2 of antibiotics - Echocardiogram EF of 55-60%, No valvular disease, No vegetations found - MRSA negative--> discontinued vancomycin - Tmax 102.4 at midnight, recultured and lactic acid negative 12/14 - Afebrile since midnight 12/12 - Tolerating diet - Initial blood cultures growing fusobacterium necrophorum - Neck swelling has resolved clinically - No growth in new blood cultures - Discharged with - Augmentin to complete 14 days - Levaquin to complete 5 days - Incentive spirometry and acapella - Patient Instructions Diet: Usual Diet as Tolerated Activity: As Tolerated Notify Provider of: Fever, Increased Pain, Swelling and Redness, Drainage, Nausea and/or Vomiting - Discharge Plan *PRESCRIPTION DRUG MONITORING PROGRAM REVIEWED*: No *COPY OF PRESCRIPTION DRUG MONITORING REPORT IN PATIENT JIMI: No Prescriptions/Med Rec: Amoxicillin/Potassium Clav [Augmentin 875-125 Tablet] 1 each PO Q12H #24 tablet Famotidine [Pepcid] 20 mg PO DAILY #30 tablet levoFLOXacin [Levaquin] 750 mg PO DAILY #3 tab Home Medications: Home Meds Pnv No.95/Ferrous Fum/Folic AC [ Caplet] 1 tab PO DAILY 11/07/18 [ History] metFORMIN [Glucophage XR] 500 mg PO ASDIRECTED 08/09/19 [History] valACYclovir HCl [Valtrex] 400 mg PO TID PRN 08/09/19 [History] Vortioxetine Hydrobromide [Trintellix] 10 mg PO DAILY 09/16/19 [History] Acyclovir 400 mg PO TID 09/17/19 [History] Acetaminophen/HYDROcodone [[place] 325-5 MG] 1 tab PO Q4H PRN #15 tablet 12/08/19 [Rx] Phentermine HCl 15 mg PO DAILY 12/08/19 [History] Topiramate 25 mg PO DAILY 12/08/19 [History] Desogestrel-Ethinyl Estradiol [Isibloom 28 Day Tablet] 1 tab PO DAILY 12/11/19 [ History] Spironolactone [Aldactone] 100 mg PO DAILY 12/11/19 [History] Amoxicillin/Potassium Clav [Augmentin 875-125 Tablet] 1 each PO Q12H #24 tablet 12/15/19 [Rx] Famotidine [Pepcid] 20 mg PO DAILY #30 tablet 12/15/19 [Rx] levoFLOXacin [Levaquin] 750 mg PO DAILY #3 tab 12/15/19 [Rx] Oxygen Therapy Mode: Room Air Patient Handouts: Antibiotic Medicine, Adult, Sepsis, Self Care, Adult Referrals: Rick Malcolm MD [Primary Care Provider] - (Call clinic and make a follow-up appointment with in 1 week.) - Discharge Summary/Plan Comment DC Time >30 min.: Yes - General Info Date of Service: 12/15/19 Subjective Update: Slept OK No pain or other complaints Afebrile since 12/14/19 at midnight BM today Tolerating diet - Patient Data Vitals - Most Recent: Last Vital Signs Temp 97.2 F 12/15/19 16:27 Pulse 81 12/15/19 16:27 Resp 18 12/15/19 16:27 BP 116/80 12/15/19 16:27 Pulse Ox 99 12/15/19 16:27 Weight - Most Recent: 111.629 kg - Exam General: Reports: Alert, Oriented, Cooperative, No Acute Distress HEENT: Reports: Pupils Equal, Pupils Reactive, Mucous Membr. Moist/[place] Neck: Reports: Supple, Trachea Midline, No JVD, No Thyromegaly, +2 Carotid Pulse wo Bruit, Lymphadenopathy Lungs: Reports: Normal Respiratory Effort, Crackles. Denies: Rales, Rhonchi, Rub, Stridor, Wheezing Cardiovascular: Reports: Regular Rate, Regular Rhythm. Denies: Murmurs, Gallops , Rubs GI/Abdominal Exam: Normal Bowel Sounds, Soft, Non-Tender. No: Distended, Guarding, Rigid, Rebound Back Exam: Reports: Normal Inspection, Full Range of Motion Extremities: Normal Inspection, Normal Range of Motion, Non-Tender, No Pedal Edema, Normal Capillary Refill Skin: Reports: Warm, Dry Neurological: Reports: No New Focal Deficit
== END 2019-12-15 18:42 | disposition home or self-care (01) | DRG 640 ==
LOC: JD.ED 06:55 → INTOOBSV 09:34 → JD.MS 09:34 → OBSVTOIN 12-12 07:23
PROVIDERS: ADMIT Family Medicine; ATTEND Family Medicine
DX: E87.6 Hypokalemia (principal); A41.9 Sepsis, unspecified organism; J18.9 Pneumonia, unspecified organism; E83.42 Hypomagnesemia; J03.90 Acute tonsillitis, unspecified; G43.909 Migraine, unspecified, not intractable, without status migrainosus; F41.9 Anxiety disorder, unspecified; F32.9 Major depressive disorder, single episode, unspecified; A49.1 Streptococcal infection, unspecified site; E83.39 Other disorders of phosphorus metabolism; E28.2 Polycystic ovarian syndrome; Z20.828 Contact with and (suspected) exposure to other viral communicable diseases; A49.8 Other bacterial infections of unspecified site; Z91.040 Latex allergy status; Z86.73 Personal history of transient ischemic attack (TIA), and cerebral infarction without residual deficits; Z79.84 Long term (current) use of oral hypoglycemic drugs; Z79.899 Other long term (current) drug therapy; Z90.49 Acquired absence of other specified parts of digestive tract
CPT/HCPCS: 36415; 70491; 70491-26; 71046; 71046-26; 80053; 80202; 82570; 83605; 83735; 84100; 84145; 84156; 84300; 84703; 85025; 86140; 87040; 87076; 87077; 87181; 87184; 87338; 87641; 93005; 93010; 93306; 94640; 94667; 94668; 94761; 99220; 99232; 99239; 99285; A9270-GY; J0295; J1170; J1885; J1940; J1956; J2270; J2405; J2543; J2550; J3370; J3475; J3480; J3490; J7030; J7040; J7050; J7120; Q9967; U0002

== ENCOUNTER 2020-04-19 19:06 | Emergency (ER) | payer MEDICAID ==
--- NOTE | 2020-04-19 19:57 | EDM.PDOC ---
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 She has had fever like symptoms for the past 3 days. COVID test was negative on Tuesday. She has no other symptoms concerning for COVID. She is sexually active with one partner with no protection. She states she could be . Last menstrual cycle was March 12. She did miss a few days of control while on vacation. She does have a history of HSV and denies any outbreak as of recent. She take acyclovir. Of note patient delivered a baby in May via emergency . Patient required a wound VAC post surgery. 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 Hx M4 A0. She has history of ectopic right side. 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 Perineal Area Pain Score (Numeric/FACES): 9 - Related Data Allergies Allergy/AdvReac Type Severity Reaction Status Date / Time Latex, Natural Rubber Allergy Hives Verified 04/19/20 19:31 tramadol AdvReac Nausea Verified 04/19/20 19:31 Home Meds: Home Meds valACYclovir HCl [Valtrex] 400 mg PO TID PRN 08/09/19 [History] Vortioxetine Hydrobromide [Trintellix] 10 mg PO DAILY 09/16/19 [History] Phentermine HCl 15 mg PO DAILY 12/08/19 [History] Topiramate 25 mg PO DAILY 12/08/19 [History] Desogestrel-Ethinyl Estradiol [Isibloom 28 Day Tablet] 1 tab PO DAILY 12/11/19 [History] Spironolactone [Aldactone] 100 mg PO DAILY 12/11/19 [History] Past Medical History HEENT History: Reports: Impaired Vision, Other (See Below) Other HEENT History: wears glasses Cardiovascular History: Reports: Other (See Below) Other Cardiovascular History: past history of TIA Genitourinary History: Reports: Other (See Below) Other Genitourinary History: HSV type II MAGNETO SPECIALIST History: Reports: Ectopic , Polycystic Ovaries, Spontaneous Other MAGNETO SPECIALIST History: Neurological History: Reports: Migraines, TIA Psychiatric History: Reports: Anxiety, Depression Endocrine/Metabolic History: Reports: Other (See Below) Other Endocrine/Metabolic History: Empty Sacsella - Infectious Disease History Infectious Disease History: Reports: Herpes - Past Surgical History GI Surgical History: Reports: Cholecystectomy, Colonoscopy Female Surgical History: Reports: Section Social & Family History - Family History Family Medical History: Noncontributory - Tobacco Use Smoking Status *Q: Never Smoker Second Hand Smoke Exposure: No - Caffeine Use Caffeine Use: Reports: None Other Caffeine Use: coca cola one can a day , energy drinks occassionally - Recreational Drug Use Recreational Drug Use: No - Living Situation & Occupation Living situation: Reports: , with Family (Daughter) 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 Denies: Decreased Appetite Respiratory: Reports: No Symptoms Cardiovascular: Reports: No Symptoms GI/Abdominal: Reports: Abdominal Pain, Nausea. Denies: Black Stool, Bloody Stool, Constipation, Diarrhea, Decreased Appetite, Vomiting : Reports: Discharge. Denies: Dysuria ED EXAM, RENAL/ - Physical Exam Exam: See Below Exam Limited By: No Limitations General Appearance: Alert, WD/WN, Mild Distress Ears: Hearing Grossly Normal Nose: Normal Inspection Throat/Mouth: Normal Voice, No Airway Compromise Head: Atraumatic, Normocephalic Neck: Normal Inspection, Supple Respiratory/Chest: No Respiratory Distress, Lungs Clear, Normal Breath Sounds, No Accessory Muscle Use Cardiovascular: Normal Peripheral Pulses, Regular Rate, Rhythm, No Murmur GI/Abdominal: Normal Bowel Sounds, Soft, No Organomegaly, No Distention, Guarding, Tender (suprapubic region. ) (Female) Exam: Cervical Discharge (Thin milky discharge), Vaginal Discharge. No: Cervical Lesions, Cervix Motion Tenderness, Vaginal Bleeding, Vaginal Lesions Back Exam: Normal Inspection, Full Range of Motion. No: CVA Tenderness (L), CVA Tenderness (R) Extremities: Normal Inspection Neurological: Alert, Oriented, Normal Cognition, No Motor/Sensory Deficits Psychiatric: Normal Affect, Normal Mood Skin Exam: Warm, Dry, Intact, Normal Color, No Rash Course - Vital Signs Last Recorded V/S: Last Vital Signs Temp 99.4 F 04/19/20 19:28 Pulse 98 04/19/20 19:28 Resp 20 04/19/20 19:28 BP 133/85 04/19/20 19:28 Pulse Ox 100 04/19/20 19:28 - Orders/Labs/Meds Labs: Laboratory Tests 04/19/20 04/19/20 04/19/20 Range/Units 20:33 20:33 20:43 WBC 9.05 (3.98-10.04) K/mm3 RBC 4.60 (3.98-5.22) M/mm3 Hgb 13.8 D (11.2-15.7) gm/dl Hct 40.9 (34.1-44.9) % MCV 88.9 (79.4-94.8) fl MCH 30.0 (25.6-32.2) pg MCHC 33.7 (32.2-35.5) g/dl RDW Std Deviation 42.5 (36.4-46.3) fL Plt Count 287 (182-369) K/mm3 MPV 10.7 (9.4-12.3) fl Neutrophils % (Manual) 70 H (40-60) % Band Neutrophils % 0 (0-10) % Lymphocytes % (Manual) 18 L (20-40) % Atypical Lymphs % 4 % Monocytes % (Manual) 6 (2-10) % Eosinophils % (Manual) 1 (0.7-5.8) % Basophils % (Manual) 1 (0.1-1.2) Platelet Estimate Adequate RBC Morph Comment Normal Sodium 138 (136-145) mEq/L Potassium 3.8 (3.5-5.1) mEq/L Chloride 103 (98-107) mEq/L Carbon Dioxide 26 (21-32) mEq/L Anion Gap 12.8 (5-15) BUN 10 (7-18) mg/dL Creatinine 0.8 (0.55-1.02) mg/dL Est Cr Clr Drug Dosing 102.78 mL/min Estimated GFR (MDRD) > 60 (>60) mL/min BUN/Creatinine Ratio 12.5 L (14-18) Glucose 96 (74-106) mg/dL Lactic Acid 0.8 (0.4-2.0) mmol/L Calcium 8.7 (8.5-10.1) mg/dL Total Bilirubin 0.6 (0.2-1.0) mg/dL AST 17 (15-37) U/L ALT 20 (14-59) U/L Alkaline Phosphatase 63 (46-116) U/L C-Reactive Protein 0.7 (<1.0) mg/dL Total Protein 7.4 (6.4-8.2) g/dl Albumin 3.7 (3.4-5.0) g/dl Globulin 3.7 gm/dL Albumin/Globulin Ratio 1.0 (1-2) HCG, Quant mIU/mL Urine Color (Yellow) Urine Appearance (Clear) Urine pH (5.0-8.0) Ur Specific [place] (1.005-1.030) Urine Protein (Negative) Urine Glucose (UA) (Negative) Urine Ketones (Negative) Urine Occult Blood (Negative) Urine Nitrite (Negative) Urine Bilirubin (Negative) Urine Urobilinogen (0.2-1.0) Ur Leukocyte Esterase (Negative) Urine RBC (0-5) /hpf Urine WBC (0-5) /hpf Ur Squamous Epith Cells (0-5) /hpf Urine Bacteria (FEW) /hpf Urine Mucus (FEW) /hpf Urine HCG, Qual (NEGATIVE) C trachomatis DNA (PCR) N gonorrhoeae DNA (PCR) 04/19/20 04/19/20 04/19/20 Range/Units 21:05 21:05 21:05 WBC (3.98-10.04) K/mm3 RBC (3.98-5.22) M/mm3 Hgb (11.2-15.7) gm/dl Hct (34.1-44.9) % MCV (79.4-94.8) fl MCH (25.6-32.2) pg MCHC (32.2-35.5) g/dl RDW Std Deviation (36.4-46.3) fL Plt Count (182-369) K/mm3 MPV (9.4-12.3) fl Neutrophils % (Manual) (40-60) % Band Neutrophils % (0-10) % Lymphocytes % (Manual) (20-40) % Atypical Lymphs % % Monocytes % (Manual) (2-10) % Eosinophils % (Manual) (0.7-5.8) % Basophils % (Manual) (0.1-1.2) Platelet Estimate RBC Morph Comment Sodium (136-145) mEq/L Potassium (3.5-5.1) mEq/L Chloride (98-107) mEq/L Carbon Dioxide (21-32) mEq/L Anion Gap (5-15) BUN (7-18) mg/dL Creatinine (0.55-1.02) mg/dL Est Cr Clr Drug Dosing mL/min Estimated GFR (MDRD) (>60) mL/min BUN/Creatinine Ratio (14-18) Glucose (74-106) mg/dL Lactic Acid (0.4-2.0) mmol/L Calcium (8.5-10.1) mg/dL Total Bilirubin (0.2-1.0) mg/dL AST (15-37) U/L ALT (14-59) U/L Alkaline Phosphatase (46-116) U/L C-Reactive Protein (<1.0) mg/dL Total Protein (6.4-8.2) g/dl Albumin (3.4-5.0) g/dl Globulin gm/dL Albumin/Globulin Ratio (1-2) HCG, Quant mIU/mL Urine Color Yellow (Yellow) Urine Appearance Clear (Clear) Urine pH 6.0 (5.0-8.0) Ur Specific [place] 1.020 (1.005-1.030) Urine Protein Negative (Negative) Urine Glucose (UA) Negative (Negative) Urine Ketones Negative (Negative) Urine Occult Blood Negative (Negative) Urine Nitrite Negative (Negative) Urine Bilirubin Negative (Negative) Urine Urobilinogen 0.2 (0.2-1.0) Ur Leukocyte Esterase Negative (Negative) Urine RBC 0-5 (0-5) /hpf Urine WBC 0-5 (0-5) /hpf Ur Squamous Epith Cells 5-10 H (0-5) /hpf Urine Bacteria Few (FEW) /hpf Urine Mucus Not seen (FEW) /hpf Urine HCG, Qual Positive (NEGATIVE) C trachomatis DNA (PCR) Not detected N gonorrhoeae DNA (PCR) Not detected 04/19/20 Range/Units 22:55 WBC (3.98-10.04) K/mm3 RBC (3.98-5.22) M/mm3 Hgb (11.2-15.7) gm/dl Hct (34.1-44.9) % MCV (79.4-94.8) fl MCH (25.6-32.2) pg MCHC (32.2-35.5) g/dl RDW Std Deviation (36.4-46.3) fL Plt Count (182-369) K/mm3 MPV (9.4-12.3) fl Neutrophils % (Manual) (40-60) % Band Neutrophils % (0-10) % Lymphocytes % (Manual) (20-40) % Atypical Lymphs % % Monocytes % (Manual) (2-10) % Eosinophils % (Manual) (0.7-5.8) % Basophils % (Manual) (0.1-1.2) Platelet Estimate RBC Morph Comment Sodium (136-145) mEq/L Potassium (3.5-5.1) mEq/L Chloride (98-107) mEq/L Carbon Dioxide (21-32) mEq/L Anion Gap (5-15) BUN (7-18) mg/dL Creatinine (0.55-1.02) mg/dL Est Cr Clr Drug Dosing mL/min Estimated GFR (MDRD) (>60) mL/min BUN/Creatinine Ratio (14-18) Glucose (74-106) mg/dL Lactic Acid (0.4-2.0) mmol/L Calcium (8.5-10.1) mg/dL Total Bilirubin (0.2-1.0) mg/dL AST (15-37) U/L ALT (14-59) U/L Alkaline Phosphatase (46-116) U/L C-Reactive Protein (<1.0) mg/dL Total Protein (6.4-8.2) g/dl Albumin (3.4-5.0) g/dl Globulin gm/dL Albumin/Globulin Ratio (1-2) HCG, Quant 2338.0 mIU/mL Urine Color (Yellow) Urine Appearance (Clear) Urine pH (5.0-8.0) Ur Specific [place] (1.005-1.030) Urine Protein (Negative) Urine Glucose (UA) (Negative) Urine Ketones (Negative) Urine Occult Blood (Negative) Urine Nitrite (Negative) Urine Bilirubin (Negative) Urine Urobilinogen (0.2-1.0) Ur Leukocyte Esterase (Negative) Urine RBC (0-5) /hpf Urine WBC (0-5) /hpf Ur Squamous Epith Cells (0-5) /hpf Urine Bacteria (FEW) /hpf Urine Mucus (FEW) /hpf Urine HCG, Qual (NEGATIVE) C trachomatis DNA (PCR) N gonorrhoeae DNA (PCR) Meds: Medications Discontinued Medications Generic Name Dose Route Start Last Admin Trade Name Freq PRN Reason Stop Dose Admin Hydromorphone HCl 0.5 mg 04/19/20 20:14 04/19/20 20:49 Dilaudid IVPUSH 04/19/20 20:15 0.5 mg ONETIME ONE Administration Sodium Chloride 1,000 mls @ 250 mls/hr 04/19/20 20:00 04/19/20 20:49 Normal Saline IV 04/19/20 23:59 250 mls/hr ONETIME ONE Administration Ondansetron HCl 4 mg 04/19/20 20:14 04/19/20 20:49 Zofran IVPUSH 04/19/20 20:15 4 mg ONETIME ONE Administration Sodium Chloride 10 ml 04/19/20 20:00 04/19/20 20:49 Saline Flush FLUSH 10 ml ASDIRECTED PRN Administration Keep Vein Open - Re-Assessments/Exams Free Text/Narrative Re-Assessment/Exam: Vital signs on initial exam temperature 99.4, pulse rate 98, blood pressure 133/85, respiratory rate 20, O2 sats 100%. On exam patient is tender to the suprapubic region. Notes she has had some discharge from her vagina that has a fishy smell. She has had fever like symptoms for the past 3 days with worsening pelvic pain. COVID test was negative on Tuesday. She has no other symptoms concerning for COVID. She is sexually active with one partner with no protection. She states she could be . Last menstrual cycle was March 12. She did miss a few days of control while on vacation. She does have a history of HSV and denies any outbreak as of recent. She take acyclovir. Of note patient delivered a baby in May via emergency . Patient required a wound VAC post surgery. 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 Hx M4 A0. She has history of ectopic right side. to which per patient they flushed the fallopian tube out. IV will be established with normal saline, Zofran 4 mg IVP, and Dilaudid 0.5 mg IVP. Initial labs and studies will include: CBC, CHEM 14, CRP, ECG, UA with wet prep. In addition with recent history of fever blood cultures x2 and lactic acid ordered. I am concerned patient may have PID. Imaging may be required. 04/19/20 21:26 Female nurse present. Vaginal exam with wet prep obtained. Minimal thin milky drainage noted. 04/19/20 22:40 Labs reviewed: CBC was essentially normal. Chemistry panel was essentially normal as well. CRP within normal limits. Lactic acid 0.8. UA negative. hCG positive. Wet prep was negative for yeast, trichomonas, clue cells, and trichomonas. Urine GC is pending. 04/19/20 23:00 Reassessment, patient continues to have pain to the suprapubic region. With palpation she has pain also noted now to the right adnexa. Ordered transvaginal ultrasound and quantitative hCG. Urine GC is negative. hCG quantitative 2338 04/20/20 00:53 transvaginal ultrasound impression: Small hypoechoic area within the endometrial cavity most likely representing an early gestational sac with mean sac diameter of 0.5 cm and sonographic gestational age of 5 weeks and 0 days. No yolk sac or pole identified at this time. Follow-up beta hCG and pelvic sonogram. Trace amount of free fluid within the pelvis. The left ovary is not identified in the provided images. Limited visualization of the right ovary. 04/20/20 01:[address] Anaya. Suggested patient call his clinic on Tuesday at 0800 to schedule appt that day for reevaluation. 0106 Reassessment, patient continues to have pain along the suprapubic region. More focused to the right adnexa. Per patient same location she had pain with previous ectopic . I have called Dr. Anaya and requested he evaluate the patient. Dr. Anaya will be in shortly. Vitals: Blood pressure 114/80, heart rate 97, SPO2 100% on room air. 0118 Dr. Anaya has arrived. 0146 Dr. Anaya has examined the patient and reviewed ultrasound. She has a history of previous pain to this area of the right adnexa with previous pregnancies after experiencing the ectopic . THis was not shared with me. Dr. Anaya does not believe patient requires surgery at this time. Will follow more conservative means and have the patient be evaluated in the clinic on Tuesday for repeat labs and transvaginal ultrasound. Patient will be instructed to return to the E.D. if she develops worsening pain. Patient does have some one at home staying with her. Departure - Departure Time of Disposition: 01:50 Disposition: Home, Self-Care 01 Condition: Good Clinical Impression: Adnexal pain, Intrauterine , incidental - Discharge Information Instructions: First Trimester of , [id number], Abdominal Pain During Referrals: Param Anaya MD [Physician] - 04/21/20 8:00 am () Forms: ED Department Discharge Additional Instructions: Call [facility] this coming Tuesday at 0800 to be schedule appt to be evaluated that day for repeat blood work and transvaginal ultrasound. Please return to the E.D. immediately if you develop worsening pain. Follow instructions as discussed with Dr. Anaya. Sepsis Event Note (ED) - Evaluation Sepsis Screening Result: Possible Sepsis Risk
[2020-04-19] MEDS ORDERED: Sodium Chloride 0.9% 1,000 ML IV ONE (20:00)
[2020-04-19] MEDS ORDERED: Sodium Chloride 0.9% 10 ML Syringe FLUSH PRN (20:00)
[2020-04-19] MEDS ORDERED: HYDROmorphone 0.5 MG/0.5 ML Syringe IVPUSH ONE (20:14)
[2020-04-19] MEDS ORDERED: Ondansetron 4 MG/2 ML SDV IVPUSH ONE (20:14)
[2020-04-19 22:52] LABS: C. TRACHOMATIS BY PCR NOT DETECTED; N. GONORRHOEAE BY PCR NOT DETECTED
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
--- NOTE | 2020-05-21 10:19 | US ---
"PROCEDURE INFORMATION: Exam: US , Transvaginal Exam date and time: 04/19/2020 11:33 PM Age: 29 years old Clinical indication: complicated by abdominal or pelvic pain; Right lower quadrant; First trimester; Gestational age or lmp: 5w2d; TECHNIQUE: Imaging protocol: Real-time transvaginal obstetrical ultrasound of the maternal pelvis and a first trimester with image documentation. Transvaginal imaging was used for better evaluation of the fetus, adnexa, and/or cervix. COMPARISON: US Transvaginal Non OB 06/27/2019 2:56 PM FINDINGS: Last menstrual period: 03/13/2020. The uterus measures 9.8 x 5.1 x 6.7 cm with a calculated volume of 177 cc. Gestation: No pole or yolk sac identified. BIOMETRY: Gestational age (AUA): Sonographic gestational age of 5 weeks and 0 days. Mean sac diameter: Small hypoechoic structure within the endometrial cavity most likely representing early gestational sac, measuring approximately 0.7 x 0.4 x 0.4 cm with mean sac diameter of 0.5 cm. MATERNAL: Uterus: Endometrial echo complex measures 1.3 cm in thickness. Cervix: Small hypoechoic structure within the uterine cervix, likely representing nabothian cyst. Right adnexa: Limited visualization of the right ovary, measuring 2.3 x 1.5 x 3.1 cm with a calculated volume of 5 cc. Left adnexa: The left ovary is not identified in the provided images. Intraperitoneal space: Trace amount of free fluid within the pelvis. CARLA DELGADILLO | Final Radiology Report CONFIDENTIALITY STATEMENT This report is intended only for use by the referring physician, and only in accordance with law. If you received this in error, call [phone]. Page 2 of 2 IMPRESSION: 1. Small hypoechoic structure within the endometrial cavity most likely representing early gestational sac with mean sac diameter of 0.5 cm and sonographic gestational age of 5 weeks and 0 days. 2. No yolk sac or pole identified at this time. Follow-up beta HCG and pelvic sonogram. 3. Trace amount of free fluid within the pelvis. 4. The left ovary is not identified in the provided images. Limited visualization of the right ovary. Thank you for allowing us to participate in the care of your patient. Dictated and Authenticated by: Tod Clark MD 05/20/2020 11:15 PM Central Time ([place] & [place]) JH"
== END 2020-04-20 02:00 | disposition home or self-care (01) ==
LOC: JD.ED 19:06
DX: R10.2 Pelvic and perineal pain (principal); G43.909 Migraine, unspecified, not intractable, without status migrainosus; F32.9 Major depressive disorder, single episode, unspecified; Z33.1 Pregnant state, incidental; Z91.040 Latex allergy status; Z88.5 Allergy status to narcotic agent; Z86.73 Personal history of transient ischemic attack (TIA), and cerebral infarction without residual deficits; Z79.899 Other long term (current) drug therapy
CPT/HCPCS: 36415; 76817; 80053; 81001; 81025; 83605; 84702; 85007; 85027; 86140; 87040; 87210; 87491; 87591; 87808; 96361; 96374; 96375; 99284; J1170; J2405; J7030

== ENCOUNTER 2020-05-13 15:14 | Emergency (ER) | payer MEDICAID ==
[2020-05-13] MEDS ORDERED: Sodium Chloride 0.9% 10 ML Syringe FLUSH PRN (15:34)
[2020-05-13] MEDS ORDERED: Sodium Chloride 0.9% 1,000 ML IV STA (15:44)
[2020-05-13] MEDS ORDERED: HYDROmorphone 0.5 MG/0.5 ML Syringe IVPUSH ONE ×2 (15:44→18:01)
[2020-05-13] MEDS ORDERED: Ondansetron 4 MG/2 ML SDV IVPUSH ONE (15:44)
--- NOTE | 2020-05-13 16:54 | EDM.PDOC ---
ED HPI GENERAL MEDICAL PROBLEM - General Chief Complaint: [employer] Problem Stated Complaint: SPOTTING/8 WEEKS Time Seen by Provider: 05/13/20 15:33 Source of Information: Reports: Patient, RN Notes Reviewed History Limitations: Reports: No Limitations - History of Present Illness INITIAL COMMENTS - FREE TEXT/NARRATIVE: Patient is a 29-year-old female G7, P1, 8 weeks gestation, presented to the emergency department with complaints of severe pelvic and low back pain as well as vaginal bleeding. Symptoms began earlier today with what she describes as a heavy flow vaginal discharge, however at that point it was not bloody. She also had the pelvic and back pain at this time. Short-term prior to coming to the ER, she developed blood tinged vaginal discharge. She does have a history of miscarriages and states that when she does miscarry it is usually around this time. Her last ended in June 2019 with a live , however unfortunately this baby at a couple weeks old. Prior to this, her last miscarriage was in 2015. Her last menstrual period was on March 13. She has seen her [employer], Dr. Anaya on a number of occasions since then due to having pelvic pain and concern for a possible ectopic . Early ultrasounds were completed she was found to have a single intrauterine gestation. Her last quantitative beta-hCG was completed on 28 April was found to be 17,933. Lower Abdomen Pain Score (Numeric/FACES): 10 - Related Data Allergies Allergy/AdvReac Type Severity Reaction Status Date / Time Latex, Natural Rubber Allergy Severe Hives Verified 05/13/20 15:36 tramadol AdvReac Severe Nausea Verified 05/13/20 15:36 Home Meds: Home Meds Acetaminophen/Codeine [Tylenol with Codeine No.3 300MG/30MG] 1 tab PO Q4H PRN #15 tab 05/13/20 [Rx] metroNIDAZOLE [Flagyl] 500 mg PO Q12H 7 Days #14 tab 05/13/20 [Rx] Past Medical History HEENT History: Reports: Impaired Vision, Other (See Below) Other HEENT History: wears glasses Cardiovascular History: Reports: Other (See Below) Other Cardiovascular History: past history of TIA Genitourinary History: Reports: Other (See Below) Other Genitourinary History: HSV type II [employer] History: Reports: Ectopic , Polycystic Ovaries, Spontaneous Other [employer] History: Neurological History: Reports: Migraines, TIA Psychiatric History: Reports: Anxiety, Depression Endocrine/Metabolic History: Reports: Other (See Below) Other Endocrine/Metabolic History: Empty Sacsella - Infectious Disease History Infectious Disease History: Reports: Herpes - Past Surgical History GI Surgical History: Reports: Cholecystectomy, Colonoscopy Female Surgical History: Reports: Section Social & Family History - Family History Family Medical History: Noncontributory - Tobacco Use Tobacco Use Status *Q: Never Tobacco User - Caffeine Use Caffeine Use: Reports: Coffee, Soda, Tea Other Caffeine Use: coca cola one can a day , energy drinks occassionally - Recreational Drug Use Recreational Drug Use: No - Living Situation & Occupation Living situation: Reports: , with Family (Daughter) 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) ED ROS GENERAL - Review of Systems Review Of Systems: See Below Constitutional: Denies: Fever, Chills, Weakness HEENT: Reports: No Symptoms Respiratory: Reports: No Symptoms Cardiovascular: Reports: No Symptoms Endocrine: Reports: No Symptoms : Reports: Pain (Pelvic and low back), Other (Bloody vaginal discharge) Skin: Reports: No Symptoms Neurological: Reports: No Symptoms Psychiatric: Reports: No Symptoms Hematologic/Lymphatic: Reports: No Symptoms Immunologic: Reports: No Symptoms ED EXAM - Physical Exam Exam: See Below General Appearance: Alert, WD/WN, Mild Distress Respiratory/Chest: No Respiratory Distress, Lungs Clear, Normal Breath Sounds, No Accessory Muscle Use, Chest Non-Tender Cardiovascular: Normal Peripheral Pulses, Regular Rate, Rhythm, No Edema, No Gallop, No JVD, No Murmur, No Rub GI/Abdominal Exam: Normal Bowel Sounds, Soft, No Organomegaly, No Distention, No Abnormal Bruit, No Mass, Pelvis Stable, Tender (Suprapubic) Neurological: Alert, Oriented, CN II-XII Intact, Normal Cognition, Normal Gait, Normal Reflexes, No Motor/Sensory Deficits Psychiatric: Normal Affect, Normal Mood Skin Exam: Warm, Dry, Intact, Normal Color, No Rash Course - Vital Signs Last Recorded V/S: Last Vital Signs Temp 98.3 F 05/13/20 18:25 Pulse 56 L 05/13/20 18:25 Resp 16 05/13/20 18:25 BP 102/58 L 05/13/20 18:25 Pulse Ox 100 05/13/20 18:25 - Orders/Labs/Meds Orders: Active Orders 24 hr Category Date Time Status Peripheral IV Care [RC] . DIRECTED Care 05/13/20 15:34 Active OB Transvaginal [US] Stat Exams 05/13/20 15:48 Taken Sodium Chloride 0.9% [Normal Saline] 1,000 ml Med 05/13/20 15:44 Active IV NOW Sodium Chloride 0.9% [Saline Flush] Med 05/13/20 15:34 Active 10 ml FLUSH ASDIRECTED PRN Peripheral IV Insertion Adult [OM.PC] Stat Oth 05/13/20 15:34 Ordered Medication Orders Sodium Chloride (Normal Saline) 1,000 mls @ 150 mls/hr IV NOW STA Stop: 05/13/20 22:23 Last Admin: 05/13/20 15:55 Dose: 150 mls/hr Documented by: ROSA Sodium Chloride (Saline Flush) 10 ml FLUSH ASDIRECTED PRN PRN Reason: Keep Vein Open Last Admin: 05/13/20 15:56 Dose: 10 ml Documented by: [id number] Labs: Laboratory Tests 05/13/20 05/13/20 05/13/20 Range/Units 16:00 16:00 16:00 WBC 9.63 (3.98-10.04) K/mm3 RBC 4.46 (3.98-5.22) M/mm3 Hgb 13.3 (11.2-15.7) gm/dl Hct 39.9 (34.1-44.9) % MCV 89.5 (79.4-94.8) fl MCH 29.8 (25.6-32.2) pg MCHC 33.3 (32.2-35.5) g/dl RDW Std Deviation 43.3 (36.4-46.3) fL Plt Count 274 (182-369) K/mm3 MPV 10.4 (9.4-12.3) fl Neut % (Auto) 73.1 H (34.0-71.1) % Lymph % (Auto) 19.2 L (19.3-51.7) % [place] % (Auto) 5.3 (4.7-12.5) % Eos % (Auto) 1.9 (0.7-5.8) Baso % (Auto) 0.2 (0.1-1.2) % Neut # (Auto) 7.04 H (1.56-6.13) K/mm3 Lymph # (Auto) 1.85 (1.18-3.74) K/mm3 [place] # (Auto) 0.51 H (0.24-0.36) K/mm3 Eos # (Auto) 0.18 (0.04-0.36) K/mm3 Baso # (Auto) 0.02 (0.01-0.08) K/mm3 Sodium 138 (136-145) mEq/L Potassium 3.5 (3.5-5.1) mEq/L Chloride 103 (98-107) mEq/L Carbon Dioxide 23 (21-32) mEq/L Anion Gap 15.5 H (5-15) BUN 9 (7-18) mg/dL Creatinine 0.6 (0.55-1.02) mg/dL Est Cr Clr Drug Dosing 137.04 mL/min Estimated GFR (MDRD) > 60 (>60) mL/min BUN/Creatinine Ratio 15.0 (14-18) Glucose 88 (74-106) mg/dL Calcium 9.1 (8.5-10.1) mg/dL Total Bilirubin 0.5 (0.2-1.0) mg/dL AST 6 L (15-37) U/L ALT 20 (14-59) U/L Alkaline Phosphatase 62 (46-116) U/L Total Protein 7.3 (6.4-8.2) g/dl Albumin 3.5 (3.4-5.0) g/dl Globulin 3.8 gm/dL Albumin/Globulin Ratio 0.9 L (1-2) HCG, Quant 78847.0 mIU/mL Urine Color (Yellow) Urine Appearance (Clear) Urine pH (5.0-8.0) Ur Specific Muse (1.005-1.030) Urine Protein (Negative) Urine Glucose (UA) (Negative) Urine Ketones (Negative) Urine Occult Blood (Negative) Urine Nitrite (Negative) Urine Bilirubin (Negative) Urine Urobilinogen (0.2-1.0) Ur Leukocyte Esterase (Negative) Urine RBC (0-5) /hpf Urine WBC (0-5) /hpf Ur Squamous Epith Cells (0-5) /hpf Urine Bacteria (FEW) /hpf Urine Mucus (FEW) /hpf Blood Type O POSITIVE 05/13/20 Range/Units 16:50 WBC (3.98-10.04) K/mm3 RBC (3.98-5.22) M/mm3 Hgb (11.2-15.7) gm/dl Hct (34.1-44.9) % MCV (79.4-94.8) fl MCH (25.6-32.2) pg MCHC (32.2-35.5) g/dl RDW Std Deviation (36.4-46.3) fL Plt Count (182-369) K/mm3 MPV (9.4-12.3) fl Neut % (Auto) (34.0-71.1) % Lymph % (Auto) (19.3-51.7) % [place] % (Auto) (4.7-12.5) % Eos % (Auto) (0.7-5.8) Baso % (Auto) (0.1-1.2) % Neut # (Auto) (1.56-6.13) K/mm3 Lymph # (Auto) (1.18-3.74) K/mm3 [place] # (Auto) (0.24-0.36) K/mm3 Eos # (Auto) (0.04-0.36) K/mm3 Baso # (Auto) (0.01-0.08) K/mm3 Sodium (136-145) mEq/L Potassium (3.5-5.1) mEq/L Chloride (98-107) mEq/L Carbon Dioxide (21-32) mEq/L Anion Gap (5-15) BUN (7-18) mg/dL Creatinine (0.55-1.02) mg/dL Est Cr Clr Drug Dosing mL/min Estimated GFR (MDRD) (>60) mL/min BUN/Creatinine Ratio (14-18) Glucose (74-106) mg/dL Calcium (8.5-10.1) mg/dL Total Bilirubin (0.2-1.0) mg/dL AST (15-37) U/L ALT (14-59) U/L Alkaline Phosphatase (46-116) U/L Total Protein (6.4-8.2) g/dl Albumin (3.4-5.0) g/dl Globulin gm/dL Albumin/Globulin Ratio (1-2) HCG, Quant mIU/mL Urine Color Light yellow (Yellow) Urine Appearance Clear (Clear) Urine pH 6.5 (5.0-8.0) Ur Specific Muse 1.020 (1.005-1.030) Urine Protein Negative (Negative) Urine Glucose (UA) Negative (Negative) Urine Ketones Negative (Negative) Urine Occult Blood Negative (Negative) Urine Nitrite Negative (Negative) Urine Bilirubin Negative (Negative) Urine Urobilinogen 0.2 (0.2-1.0) Ur Leukocyte Esterase Negative (Negative) Urine RBC Not seen (0-5) /hpf Urine WBC Not seen (0-5) /hpf Ur Squamous Epith Cells 5-10 H (0-5) /hpf Urine Bacteria Not seen (FEW) /hpf Urine Mucus Not seen (FEW) /hpf Blood Type Meds: Medications Generic Name Dose Route Start Last Admin Trade Name Amilcar PRN Reason Stop Dose Admin Sodium Chloride 1,000 mls @ 150 mls/hr 05/13/20 15:44 05/13/20 15:55 Normal Saline IV 05/13/20 22:23 150 mls/hr NOW STA Administration Sodium Chloride 10 ml 05/13/20 15:34 05/13/20 15:56 Saline Flush FLUSH 10 ml ASDIRECTED PRN Administration Keep Vein Open Discontinued Medications Generic Name Dose Route Start Last Admin Trade Name Amilcar PRN Reason Stop Dose Admin Hydromorphone HCl 0.5 mg 05/13/20 15:44 05/13/20 15:56 Dilaudid IVPUSH 05/13/20 15:45 0.5 mg ONETIME ONE Administration Hydromorphone HCl 0.5 mg 05/13/20 18:01 05/13/20 18:20 Dilaudid IVPUSH 05/13/20 18:02 0.5 mg ONETIME ONE Administration Ondansetron HCl 4 mg 05/13/20 15:44 05/13/20 15:56 Zofran IVPUSH 05/13/20 15:45 4 mg ONETIME ONE Administration - Re-Assessments/Exams Free Text/Narrative Re-Assessment/Exam: 05/13/20 18:28 Patient's work-up was grossly unremarkable. Hematology was normal. hCG appropriately elevated at 57,490. Urinalysis is negative for infection. Ultrasound showed a single live intrauterine with ultrasound dates at 8 weeks 3 days. Heart rate was 168. No acute complications appreciated. On pelvic exam, there was no visible blood in the vaginal canal or from the cervix. Cervix was closed. There was some thick white discharge within the vaginal canal, therefore I did complete a wet prep. Results of the wet prep show rare clue cells and rare WBCs. Is negative for trichomonas or yeast. We will treat for bacterial vaginosis. Spoke with Dr. Anaya. He had no additional recommendations for testing. I will prescribe her some Tylenol with codeine to help treat the pain and have her follow-up with him in the clinic. Discharge instructions as documented. Departure - Departure Time of Disposition: 18:29 Disposition: Home, Self-Care 01 Condition: Good Clinical Impression: Threatened , Bacterial vaginosis in - Discharge Information *PRESCRIPTION DRUG MONITORING PROGRAM REVIEWED*: Yes *COPY OF PRESCRIPTION DRUG MONITORING REPORT IN PATIENT JIMI: No Prescriptions: metroNIDAZOLE [Flagyl] 500 mg PO Q12H 7 Days #14 tab Acetaminophen/Codeine [Tylenol with Codeine No.3 300MG/30MG] 1 tab PO Q4H PRN #15 tab PRN Reason: Pain Instructions: Bacterial Vaginosis, [id number], Threatened Miscarriage Referrals: Param Anaya MD [Primary Care Provider] - Forms: ED Department Discharge Additional Instructions: You were seen in the emergency department today for pelvic pain and blood-tinged vaginal discharge. Your work-up included blood work, urinalysis, an ultrasound, and a pelvic exam. Results your work-up were found to be normal with the exception of a mild case of bacterial vaginosis. Your ultrasound was normal measuring 8 weeks 3 days gestation. You have been started on Flagyl to treat bacterial vaginosis and Tylenol with codeine for pain. Take these medications as prescribed. Contact Dr. Anaya's office tomorrow to set up a follow-up visit. Return to ER for any new or worsening symptoms of concern. Sepsis Event Note (ED) - Evaluation Sepsis Screening Result: No Definite Risk - Focused Exam Vital Signs: Vital Signs Temp Pulse Resp BP Pulse Ox 05/13/20 18:25 98.3 F 56 L 16 102/58 L 100 05/13/20 15:39 99.1 F 57 L 20 124/79 100 - My Orders Last 24 Hours: My Active Orders 05/13/20 15:34 Peripheral IV Care [RC] . DIRECTED Sodium Chloride 0.9% [Saline Flush] 10 ml FLUSH ASDIRECTED PRN Peripheral IV Insertion Adult [OM.PC] Stat 05/13/20 15:44 Sodium Chloride 0.9% [Normal Saline] 1,000 ml IV NOW 05/13/20 15:48 OB Transvaginal [US] Stat - Assessment/Plan Last 24 Hours: My Active Orders 05/13/20 15:34 Peripheral IV Care [RC] . DIRECTED Sodium Chloride 0.9% [Saline Flush] 10 ml FLUSH ASDIRECTED PRN Peripheral IV Insertion Adult [OM.PC] Stat 05/13/20 15:44 Sodium Chloride 0.9% [Normal Saline] 1,000 ml IV NOW 05/13/20 15:48 OB Transvaginal [US] Stat
--- NOTE | 2020-05-15 15:26 | US ---
"PROCEDURE INFORMATION: Exam: US , Transvaginal Exam date and time: 05/13/2020 4:45 PM Age: 29 years old Clinical indication: Lmp or gestational age (in weeks): 8 weeks; Antepartum complications; Bleeding; TECHNIQUE: Imaging protocol: Real-time transvaginal obstetrical ultrasound of the maternal pelvis and a first trimester with image documentation. Transvaginal imaging was used for better evaluation of the fetus, adnexa, and/or cervix. COMPARISON: US OB Transvaginal 04/28/2020 11:20 AM FINDINGS: Gestation: Intrauterine gestational sac is appreciated at the uterine fundus. A pole is identified. heart rate: heart rate is 168 BPM. BIOMETRY: Gestational age (AUA): Ultrasound dates are 8 weeks 3 days. Mean sac diameter: Mean sac diameter is 3.06 cm (8 weeks 1 day). [place]-Rump length: [place]-rump length is 1.86 cm (8 weeks 3 days). MATERNAL: Uterus: The uterus is anteverted. Cervix: The cervix appears unremarkable. Right adnexa: The right ovary is not confidently visualized. Left adnexa: The left ovary is unremarkable with adequate vascularity. IMPRESSION: Single live intrauterine with ultrasound dates at 8 weeks 3 days. No acute complications are appreciated. CARLA DELGADILLO | Final Radiology Report CONFIDENTIALITY STATEMENT This report is intended only for use by the referring physician, and only in accordance with law. If you received this in error, call [phone]. Page 2 of 2 Thank you for allowing us to participate in the care of your patient. Dictated and Authenticated by: Charlie Cohen MD 05/13/2020 6:38 PM Central Time ([place] & [place]) JH"
== END 2020-05-13 18:53 | disposition home or self-care (01) ==
LOC: JD.ED 15:14 → SUPCPDRO 15:14 → JD.ED 18:53
DX: O20.0 Threatened abortion (principal); O23.591 Infection of other part of genital tract in pregnancy, first trimester; Z91.040 Latex allergy status; Z88.5 Allergy status to narcotic agent; Z86.73 Personal history of transient ischemic attack (TIA), and cerebral infarction without residual deficits; Z3A.08 8 weeks gestation of pregnancy
CPT/HCPCS: 36415; 76817; 80053; 81001; 84702; 85025; 86900; 86901; 87210; 87808; 96374; 96375; 96376; 99284; J1170; J2405; J7030

== ENCOUNTER 2022-01-06 05:15 | Emergency (ER) | payer BC, MEDICAID ==
[2022-01-06] MEDS ORDERED: Ondansetron 4 MG/2 ML SDV IVPUSH ONE (06:53)
[2022-01-06] MEDS ORDERED: HYDROmorphone 1 MG/ML Syringe IVPUSH ONE (06:53)
[2022-01-06] MEDS ORDERED: Sodium Chloride 0.9% 1,000 ML IV SCH (07:00)
[2022-01-06] MEDS ORDERED: Sodium Chloride 0.9% 10 ML Syringe FLUSH PRN (07:59)
[2022-01-06] MEDS ORDERED: Iopamidol 612 MG/ML 100 ML Bottle IVPUSH ONE (07:59)
[2022-01-06] MEDS ORDERED: Levofloxacin/Dextrose 5%-Water 750 MG in Premix Bag 1 BAG IV STA (08:16)
== END 2022-01-06 10:00 | disposition home or self-care (01) ==
LOC: JD.ED 05:15
DX: N39.0 Urinary tract infection, site not specified (principal); E66.9 Obesity, unspecified; F17.210 Nicotine dependence, cigarettes, uncomplicated; Z88.5 Allergy status to narcotic agent; Z91.040 Latex allergy status; Z68.41 Body mass index [BMI] 40.0-44.9, adult; Z86.73 Personal history of transient ischemic attack (TIA), and cerebral infarction without residual deficits; Z28.310 Unvaccinated for COVID-19
CPT/HCPCS: 36415; 74177; 80053; 81001; 83735; 84702; 85007; 85027; 87086; 87088; 87186; 96365; 96375; 99284; J1170; J1956; J2405; J3490; J7030; Q9967

== ENCOUNTER 2022-04-28 06:42 | Emergency (ER) | payer OTHER, MEDICAID ==
[2022-04-28] MEDS ORDERED: HYDROmorphone 1 MG/ML Syringe IM ONE (07:14)
[2022-04-28] MEDS ORDERED: Ondansetron 4 MG Tab.DIS PO ONE (08:07)
[2022-04-28] MEDS ORDERED: Famotidine 20 MG Tab PO ONE (08:07)
== END 2022-04-28 08:56 | disposition home or self-care (01) ==
LOC: JD.ED 06:42
DX: S83.92XA Sprain of unspecified site of left knee, initial encounter (principal); S70.12XA Contusion of left thigh, initial encounter; E66.9 Obesity, unspecified; Z68.38 Body mass index [BMI] 38.0-38.9, adult; Z79.899 Other long term (current) drug therapy; Z91.040 Latex allergy status; Z90.49 Acquired absence of other specified parts of digestive tract; Z88.5 Allergy status to narcotic agent; Y92.69 Other specified industrial and construction area as the place of occurrence of the external cause
CPT/HCPCS: 72170; 73552; 96372; 99283; A9270; J1170

== ENCOUNTER 2022-05-19 15:46 | Emergency (ER) | payer OTHER, BC ==
[2022-05-19] MEDS ORDERED: Apixaban 5 MG Tab PO ONE (16:28)
[2022-05-19 17:48] LABS: ESTIMATED GFR 117 mL/min (>60)
== END 2022-05-19 18:00 | disposition home or self-care (01) ==
LOC: JD.ED 15:46
DX: I82.402 Acute embolism and thrombosis of unspecified deep veins of left lower extremity (principal); Z91.040 Latex allergy status; Z88.5 Allergy status to narcotic agent; Z79.899 Other long term (current) drug therapy; Z79.01 Long term (current) use of anticoagulants; Z79.82 Long term (current) use of aspirin; Z90.49 Acquired absence of other specified parts of digestive tract
CPT/HCPCS: 36415; 80053; 81241; 85025; 85245; 85303; 85610; 99283; A9270

== ENCOUNTER 2024-06-03 10:34 | Emergency (ER) | payer BC, MEDICAID ==
[2024-06-03 11:27] LABS: BASOPHILS PERCENT AUTO 0.2 % (0.0-1.0); EOSINOPHILS ABSOLUTE AUTO 0.1 K/mm3 (0.0-0.4); EOSINOPHILS PERCENT AUTO 0.6 % (0.0-6.0); HEMATOCRIT 43.2 % (37.0-47.0); HEMOGLOBIN 15.2 gm/dl (12.0-16.0); IMMATURE GRAN ABSOLUTE AUTO 0.03 K/mm3 (0.00-0.05); IMMATURE GRAN PERCENT AUTO 0.4 % (0.0-0.4); LYMPHOCYTES ABSOLUTE AUTO 0.8 K/mm3 (1.0-4.8); LYMPHOCYTES PERCENT AUTO 9.9 % (24.0-44.0); MEAN CORPUSCULAR HEMOGLOBIN 31.7 pg (28.0-32.0); MEAN CORPUSCULAR HGB CONC 35.2 g/dl (32.0-36.0); MEAN CORPUSCULAR VOLUME 90.2 fl (83.0-99.0); MEAN PLATELET VOLUME 10.3 fl (9.4-12.3); MONOCYTES ABSOLUTE AUTO 0.3 K/mm3 (0.0-0.8); NEUTROPHILS ABSOLUTE AUTO 7.2 K/mm3 (1.8-7.7); NEUTROPHILS PERCENT AUTO 84.9 % (41.0-71.0); PLATELET COUNT,PLT 235 K/mm3 (150-400); RED BLOOD CELL COUNT 4.79 M/mm3 (4.10-5.30); WHITE BLOOD CELL COUNT,WBC 8.51 K/mm3 (3.9-11.3)
[2024-06-03] MEDS: Sodium Chloride 0.9% 1,000 ML IV ONE (11:27)
[2024-06-03 11:51] LABS: A/G RATIO 0.9 (1-2); ALBUMIN 3.4 g/dl (3.4-5.0); ANION GAP 11.7 (5-15); BILIRUBIN TOTAL 1.3 mg/dL (0.2-1.0); C-REACTIVE PROTEIN 2.73 mg/dL (<0.30); CALCIUM 8.3 mg/dL (8.5-10.1); CREATININE 0.8 mg/dL (0.55-1.02); EST CRCL DRUG DOSING (CG) 99.01 mL/min; POTASSIUM,K 3.7 mEq/L (3.5-5.1); PROTEIN TOTAL,TP 7.1 g/dl (6.4-8.2)
[2024-06-03] MEDS ORDERED: Naloxone 0.4 MG/ML SDV IVPUSH PRN (12:20)
[2024-06-03] MEDS: Iopamidol 612 MG/ML 100 ML Bottle IVPUSH ONE (12:22)
[2024-06-03] MEDS: Sodium Chloride 0.9% 10 ML Syringe FLUSH ONE (12:22)
[2024-06-03] MEDS: Ondansetron 4 MG/2 ML SDV IVPUSH ONE (12:32)
[2024-06-03] MEDS: fentaNYL 100 MCG/2 ML SDV IVPUSH ONE (12:33)
[2024-06-03] MEDS: Alum Hydrox/Mag Hydrox/Simeth 30 ML, Lidocaine 2% 15 ML PO ONE (12:33)
[2024-06-03] MEDS: Acetaminophen 325 MG Tab PO ONE (14:58)
[2024-06-03] MEDS: Ketorolac 30 MG/ML SDV IVPUSH ONE (14:58)
== END 2024-06-03 16:45 | disposition home or self-care (01) ==
LOC: JD.ED 10:34
DX: N83.201 Unspecified ovarian cyst, right side (principal); E66.9 Obesity, unspecified; Z68.41 Body mass index [BMI] 40.0-44.9, adult; Z90.49 Acquired absence of other specified parts of digestive tract; Z91.040 Latex allergy status; Z88.5 Allergy status to narcotic agent
CPT/HCPCS: 36415; 74177; 76830; 80053; 83690; 85025; 86140; 96361; 96374; 96375; 99284; A9270; J1885; J2405; J3010; J3490; J7030; Q9967